=== PATIENT | male | born 1955 | race Caucasian/White ===

== ENCOUNTER 2022-11-03 14:51 | Outpatient (AMB) | payer MEDICARE, OTHER, SELFPAY ==
--- NOTE | 2022-11-03 14:53 | MHC.OFFVIS ---
Intake Intake Visit Reasons: Peg J tube for Duopa intestinal infusion Intake Note: This patient presents for an assessment to discuss PEG-J tube for Duopa intestinal infusion. Patient's spouse c/o; no complaints at this time. 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 He had been diagnosed to have Parkinson's disease 6 years ago and was following with a neurologist in [place]. His says that he has had worsening of the waxing and waning of his symptoms. His symptoms generally are rigidity, poor balance and gait, and cognitive issues. These symptoms have been erratic and may be extreme on oral dopamine so he was referred for infusion for better steady state levels. His was with him during the visit and provided most of the information. [facility] Medical History (Updated 11/03/22 @ 15:23 by Vishal Wilde MD) Parkinsons disease Review of Systems Const Denies chills and Denies fever(s) Card Denies chest pain, Denies dyspnea and Denies dyspnea on exertion Resp Denies cough, Denies dyspnea and Denies dyspnea on exertion GI Denies hematochezia and Denies change in bowel habits Denies hematuria and Denies difficulty urinating Musc Denies back pain and Denies limited range of motion Neuro Details: Rigidity, poor gait, Slowness of movement, cognitive difficulties Denies focal weakness and Denies convulsions Psych Denies depression and Denies mood swings Physical Exam Const General: comfortable and no acute distress Orientation/consciousness: patient oriented x3 Neck Neck: Yes no lymphadenopathy Resp Auscultation: clear to auscultation bilaterally Cardio Rhythm: regular rhythm GI Palpation (GI): Soft to palpation, nontender and no guarding Neuro General: patient oriented x3 Assessment & Plan Assessment & Plan (1) Parkinsons disease: Code(s): G20 - Parkinson's disease Plan: I had a long discussion with patient and his about the technique of PEG J-tube placement for Duopa infusion. I explained the risks including but not limited to bleeding, infections, bowel injury, tube dislodgement, loss of airway during the procedure with anesthesia, as well as the benefits and alternatives. The wanted to proceed. The patient seems to also be in agreement. We will coordinate this procedure with [facility]. Coding Level of Care Code New Pt Level 3 (77895) Diagnoses Parkinsons disease G20
== END 2022-11-03 15:28 | disposition home or self-care (01) ==
PROVIDERS: Visit Provider Surgery
DX: G20 Parkinson's disease (principal)
CPT/HCPCS: 99203

== ENCOUNTER → 2022-11-03 14:51 | Outpatient (BNVA) | payer MEDICARE, OTHER, SELFPAY | PROVIDERS: Visit Provider Surgery ==

== ENCOUNTER 2022-12-28 14:26 | Outpatient (AMB) | payer MEDICARE, OTHER, SELFPAY ==
--- NOTE | 2022-12-28 14:27 | MHC.OFFVIS ---
Intake Vital Signs 12/28/22 14:31 Height 5 ft 11 in Weight 162 lb 2 oz BMI 22.6 BP 140/72 H Blood Pressure Location Rt brachial Position Sitting Respiration 16 Pulse 79 Pulse Source Pulse Oximeter Pulse Oximetry (%) 97 Oxygen Delivery Method Room Air Intake Visit Reasons: ENP-Parkinsons disease w/dyskinesia - Conf Intake Note: Pt presents to the office for new pt evaluation for Parkinson's. He is here with his Linda. She states he has been seeing Dr. Toro at [facility] for Parkinson's. She states overnight he is unable to move, and she feels he has stopped responding to Carbidopa-levodopa. SHe is hoping to get him on Duopa. 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: No Allergies No Known Allergies Allergy (Verified 12/28/22 15:40) Medication List - Last Reconciled 12/28/22 by Annie Isaacs MD aspirin 81 mg PO DAILY carbidopa-levodopa 25-100 mg 1 tab at 9.30 AM 12 noon 5pm 1.5 tabs at 7am 2.30 pm and 1 as needed at bedtime orally 3 times a day; carbidopa-levodopa 50-200 mg ER tabs PO clonazepam mg PO duloxetine mg PO fludrocortisone mg PO linaclotide (Linzess) mcg PO melatonin 6 mg PO BEDTIME PRN metoprolol succinate ER mg PO opicapone (Ongentys) 25 mg PO QPM opicapone (Ongentys) 25 mg PO BEDTIME rivastigmine topical trazodone 50 mg PO DAILY vibegron (Gemtesa) 75 mg PO DAILY HPI HPI Comments History of Present Illness Details 67y/o male comes for further management of parkinsons disease. He was diagnosed with Parkinsons disease 6 years ago. He was scheduled for sleep study and diagnosed with sleep apnea but also told that he probably had Parkinsons disease.He went to [facility] and was diagnosed with parkinsons disease and has been sinemet since then. Currently he has significant fluctuations and dyskinesias and is here for further management with Duopa. DUring his medication adjustments, he has had hallucinations before , he has orthostatic intolerance and is on florinef now. He is also on ogentys. Memory- mild memory difficulties Sleep- used to have sleep talking, was diagnosed with sleep apnea not on CPAP. Mood- anxiety- severe Speech- softer severe drooling Handwriting- poor Utensils- slow SHowers- needs help sometimes Dressing- needs help Gait- slow , 3 recent falls, he declines to use any assisting devices Bowel movements- on linzess as needed Hallucinations- during med adjustments. No vertigo . he exercises 2 times a week does dopa fit. He has multiple OFF periods . Increased urinary frequency - incontinence\ He has help 1 night a week , on other days his helps . He is on clonazepam 0.5mg 1/2 tab bid - he had a pardoxical reaction to increase in dose [facility] Medical History (Updated 12/28/22 @ 15:18 by Annie Isaacs MD) Parkinson's disease with fluctuating manifestations Anxiety Obstructive sleep apnea Parkinsons disease Surgical History H/O: knee surgery Family History Father No problems noted. Social History Household Members: Spouse Housing: House Alcohol intake: never Patient Tobacco Use Status: Never used Tobacco Use of substances other than those prescribed or required for medical reasons: No Physical Exam Vital Signs: Last Vital Signs Pulse 79 12/28/22 14:31 Resp 16 12/28/22 14:31 BP 140/72 H 12/28/22 14:31 Pulse Ox 97 12/28/22 14:31 Oxygen Delivery Method Room Air 12/28/22 14:31 BMI result Body Mass Index 22.6 Const General: anxious Nutritional Appearance: average body habitus Orientation/consciousness: oriented to person and oriented to place Neuro Other: He is very anxious, restless today, gets up frequently from chair wanting to pace.no tremors Moderate bradykinesia No tremors Severe hypophonia severely decreased blink and facial expression No cog wheel rigidity FFM and foot taps decreased marlo Neck- antecollis , restricted range of motion General: oriented to person, oriented to place and moves all extremities Cranial nerves: Yes Nystagmus not present and Yes Normal facial strength present Cognition (Neuro): normal cognition Gait exam (Neuro): Other gait observations present (stooped , slow) Motor exam (neuro): 5/5 motor strength present throughout Deep tendon reflexes (DTR's): Right triceps reflex intensity grade: 2+, Left triceps reflex intensity grade: 2+, Rt Biceps (C5, C6): 2+, Left biceps reflex intensity grade: 2+, Right brachioradialis reflex intensity grade: 2+, Left brachioradialis reflex intensity grade: 2+, Right patellar reflex intensity grade: 2+ and Left patellar reflex intensity grade: 2+ Coordination: [id number] test normal Assessment & Plan Assessment & Plan (1) Parkinson's disease with fluctuating manifestations: Code(s): G20.A2 - Parkinson's disease without dyskinesia, with fluctuations Plan Patient has frequent fluctuations and will benefit from Duopa Will schedule for procedure with Dr. Wilde.He already had an initial appointment with Dr. Wilde He will also benefit form a geripsych eval I will start him on lexapro 10mg qd for anxiety Orders: Referrals Geriatric Psychiatry Referral F41.9 - Anxiety disorder, unspecified, G20.A2 - Parkinson's disease without dyskinesia, with fluctuations Medications: New carbidopa-levodopa 25-100 mg 1 tab at 9.30 AM 12 noon 5pm 1.5 tabs at 7am 2.30 pm and 1 as needed at bedtime orally 3 times a day; 210 tabs 0RF escitalopram oxalate 10 mg PO DAILY 30 tabs 6RF Changed From clonazepam PO To clonazepam 1/2 tab bid Coding Level of Care Code New Pt Level 4 (76656) Diagnoses Parkinson's disease with fluctuating manifestations G20.A2
[2022-12-28 14:31] VITALS: BP 140/72; PULSE 79; RESP 16; O2SAT 97; BMI 22.6
== END 2022-12-28 15:32 | disposition home or self-care (01) ==
PROVIDERS: PCP Internal Medicine; Visit Provider Psychiatry & Neurology Neurology
DX: G20.A2 Parkinson's disease without dyskinesia, with fluctuations (principal)
CPT/HCPCS: 99204

== ENCOUNTER → 2022-12-28 14:26 | Outpatient (BNVA) | payer MEDICARE, OTHER, SELFPAY | PROVIDERS: PCP Internal Medicine; Visit Provider Psychiatry & Neurology Neurology | DX: G20.A2 Parkinson's disease without dyskinesia, with fluctuations (principal) | CPT/HCPCS: 99202 ==

== ENCOUNTER 2023-02-01 07:19 | Day surgery (SDC) | payer MEDICARE, OTHER, SELFPAY ==
[2023-01-24 10:52] VITALS: BMI 21.9
--- NOTE | 2023-01-31 09:46 | P.CONAN_ITS ---
Documented by User: Judy Elias NP 01/31/23 09:55 HPI - Anesthesia Eval Consult details Narrative: 67yo M for Peg-J Tube Placement Parkinsons Afib - no anticoag Follows [facility] cardiology. Last office visit 05/2022 [facility] Active Problems Active Problems: All Active Problems (Updated 01/24/23 @ 11:06 by Kimi Mei RN) Parkinsons disease (Acute) Parkinson's disease with fluctuating manifestations (Acute) Anxiety (Acute) Obstructive sleep apnea (Acute) Past Medical History Medical History CAD (coronary artery disease) [place] (hard of hearing) Osteoarthritis Afib Parkinson's disease with fluctuating manifestations Anxiety Obstructive sleep apnea Family History Family History Father No problems noted. Surgical History Surgical History H/O colonoscopy History of total right knee replacement H/O: knee surgery Social History Social History Household Members: Spouse Housing: House Are you a primary career services officer to a significant other at home: No Do you presently have visiting nurse or other home services: Yes ([employer]) Alcohol intake: never Comment: gait can be unsteady w/Parkinsons flare-ups Patient Tobacco Use Status: Never used Tobacco Use of substances other than those prescribed or required for medical reasons: No Have you been hit, kicked, punched, or otherwise hurt by someone within the past year? If so, by whom?: No Are you DNR?: Yes Advance Directives: Yes ( is HCP & patient has DNR order) Advance Directives Information Provided: No Advance Directives on File: No Recently lost weight without trying: No Eating poorly because of decreased appetite: No Nutrition Risks: No Nutritional Risk Poor oral hygiene: No Meds Allergies Allergy/AdvReac Type Severity Reaction Status Date / Time No Known Allergies Allergy Verified 02/01/23 08:05 Home Medications Medication Instructions Recorded Confirmed Last Taken Type aspirin 81 mg tablet 81 mg PO DAILY 11/03/22 01/24/23 Unknown History carbidopa ER 50 mg-levodopa 200 mg 1 tab PO BEDTIME 11/03/22 01/24/23 Unknown History tablet,extended release duloxetine 60 mg capsule,delayed 60 mg PO BEDTIME 11/03/22 01/24/23 Unknown History release fludrocortisone 0.1 mg tablet 0.1 mg PO BID 11/03/22 01/24/23 Unknown History linaclotide 72 mcg capsule 72 mcg PO QPM 11/03/22 01/24/23 Unknown History (Linzess) melatonin 5 mg tablet 5 mg PO BEDTIME PRN Insomnia 11/03/22 01/24/23 Unknown History metoprolol succinate 25 mg 25 mg PO QAM 11/03/22 01/24/23 Unknown History tablet,extended release 24 hr rivastigmine 4.6 mg/24 hour 4.6 mg topical DAILY 11/03/22 01/24/23 Unknown History transdermal patch clonazepam 0.5 mg tablet 0.25 mg PO BID 12/28/22 01/24/23 Unknown History opicapone 25 mg capsule (Ongentys) 25 mg PO BEDTIME 12/28/22 01/24/23 Unknown History trazodone 50 mg tablet 50 mg PO BEDTIME 12/28/22 01/24/23 Unknown History vibegron 75 mg tablet (Gemtesa) 75 mg PO BEDTIME 12/28/22 01/24/23 Unknown History gabapentin 100 mg capsule 300 mg PO BEDTIME 01/24/23 01/24/23 Unknown History Exam Height,Weight and Vital Signs: Height 5 ft 11 in Weight 71.214 kg Pertinent Lab Results Pertinent Lab Results: CBC and BMP 10/2022 WNL Narrative Narrative: EKG 05/[address] abn ECHO 07/2022 LA mild to mod dilated Trace to mild MR RV is nml in size and function LV size is nml LV wall thickness is nml LV systolic function is nml LVEF 60-65% There is a sigmoid shape to the septum No RWMA Grade 1 DD with impaired LV relax, which may be nml for the patient's age. Assessment and Plan Assessment Anesthesia Assessment: Chart Reviewed Documented by User: Duncan Nation MD 02/01/23 08:07 [facility] Past Medical History Medical History CAD (coronary artery disease) [place] (hard of hearing) Osteoarthritis Afib Parkinson's disease with fluctuating manifestations Anxiety Obstructive sleep apnea Narrative: severe Parkinsons, severe dysphagia. Family History Family History Father No problems noted. Family history of problems with anesthesia: No Surgical History Surgical History H/O colonoscopy History of total right knee replacement H/O: knee surgery History of Problems with Anesthesia: No Social History Social History Household Members: Spouse Housing: House Are you a primary career services officer to a significant other at home: No Do you presently have visiting nurse or other home services: Yes ([employer]) Alcohol intake: never Comment: gait can be unsteady w/Parkinsons flare-ups Patient Tobacco Use Status: Never used Tobacco Use of substances other than those prescribed or required for medical reasons: No Have you been hit, kicked, punched, or otherwise hurt by someone within the past year? If so, by whom?: No Are you DNR?: Yes Advance Directives: Yes ( is HCP & patient has DNR order) Advance Directives Information Provided: No Advance Directives on File: No Recently lost weight without trying: No Eating poorly because of decreased appetite: No Nutrition Risks: No Nutritional Risk Poor oral hygiene: No Meds Allergies Allergy/AdvReac Type Severity Reaction Status Date / Time No Known Allergies Allergy Verified 02/01/23 08:05 Home Medications Medication Instructions Recorded Confirmed Last Taken Type aspirin 81 mg tablet 81 mg PO DAILY 11/03/22 01/24/23 Unknown History carbidopa ER 50 mg-levodopa 200 mg 1 tab PO BEDTIME 11/03/22 01/24/23 Unknown History tablet,extended release duloxetine 60 mg capsule,delayed 60 mg PO BEDTIME 11/03/22 01/24/23 Unknown History release fludrocortisone 0.1 mg tablet 0.1 mg PO BID 11/03/22 01/24/23 Unknown History linaclotide 72 mcg capsule 72 mcg PO QPM 11/03/22 01/24/23 Unknown History (Linzess) melatonin 5 mg tablet 5 mg PO BEDTIME PRN Insomnia 11/03/22 01/24/23 Unknown History metoprolol succinate 25 mg 25 mg PO QAM 11/03/22 01/24/23 Unknown History tablet,extended release 24 hr rivastigmine 4.6 mg/24 hour 4.6 mg topical DAILY 11/03/22 01/24/23 Unknown History transdermal patch clonazepam 0.5 mg tablet 0.25 mg PO BID 12/28/22 01/24/23 Unknown History opicapone 25 mg capsule (Ongentys) 25 mg PO BEDTIME 12/28/22 01/24/23 Unknown History trazodone 50 mg tablet 50 mg PO BEDTIME 12/28/22 01/24/23 Unknown History vibegron 75 mg tablet (Gemtesa) 75 mg PO BEDTIME 12/28/22 01/24/23 Unknown History gabapentin 100 mg capsule 300 mg PO BEDTIME 01/24/23 01/24/23 Unknown History Exam Airway Mallampati Class: II Neck ROM: Full Loose/Missing/Broken Teeth: No Heart: ok Lungs: ok Assessment and Plan Assessment Anesthesia Assessment: Anesthesia Plan Discussed Final Anesthetic Review Family History of Problems with Anesthesia: No History of Problems with Anesthesia: No NPO: Yes ASA Class: III Final Preanesthetic Review: No Changes in Pt Med Stat, Meds/Allgs Chart Reviewed, Consent Obtained/Reviewed and Anes Risks/Benef Reviewed Patient Risk: High Procedure Risk: Intermediate Anesthetic Plan Anesthetic Plan: MAC: and Agree w/ Assess. and Plan Disposition: Standard PACU
[2023-02-01] VITALS (7 sets, daily range): BP systolic 120–168; BP diastolic 74–99; PULSE 51–70; RESP 14–16; TEMP 36.1–36.8; O2SAT 94–99; BMI 22.8
--- NOTE | ~2023-02-01 | FL_ITS ---
EXAMINATION: XR FLUOROSCOPY WITH IMAGES CLINICAL INFORMATION: PEG tube-J-tube placement. COMPARISON: None available. TECHNIQUE: Fluoroscopy Supervised By: Dr. Vishal Wilde. Fluoroscopy Time: 9.2 seconds. Cumulative Dose: 2.14 mGy. DAP: Not available on machine. Images: 4. FINDINGS: Fluoroscopy provided PEG J-tube placement. Images demonstrate endoscope projecting over the stomach and wires and catheters projecting over the duodenum/proximal jejunum FL/FL guidance in OR IMPRESSION: Fluoroscopy guidance for PEG J-tube placement
--- NOTE | 2023-02-01 08:04 | P.HPSUR_ITS ---
Pre-Procedural Eval Section A Date of Service: 02/01/23 Section B Chief Complaint: Parkinsonism, unspecified Details of Present Illness: Has had worsening of Parkinson symptoms with rigidity, some cognitive impairment, poor balance, episodes of severe anxiety Relevant Family History (Specify if Yes): No Relevant Social History: None Present Medications: see Short Stay Collaborative assessment Medical History: Significant History (Parkinson's disease, sleep apnea, anxiety) History of Previous Operations: No relevant previous surgery Allergies: Allergies Allergy/AdvReac Type Severity Reaction Status Date / Time No Known Allergies Allergy Verified 12/28/22 15:40 Review of Systems Sugical H&P ROS: Negative: Constitution, Cardiovascular, Respiratory, Neurological, Psychiatric, Hem-Onc, Allergic/Immunologic, Gastrointestinal, Gen itourinary, Musculoskeletal, Integumentary, Endocrine and Eyes/Ears/Nose/Throat Exam Surgical H&P Exam: Normal: HEENT, Normal: Heart, Normal: Lungs, Normal: Extremities, Normal: Abdomen, Normal: Skin and Normal: Neurological Exam Comment: Appears oriented, able to give consent Plan Diagnosis/Plan: Unchanged I have reviewed the history and physical and performed a pertinent physical examination on my patient. No changes have occurred unless specified. Daughter Linda at bedside as well Time Spent With Patient Time: Total time managing care of this patient today ____ minutes.
[2023-02-01] MEDS: Lactated Ringers 1,000 ML 100 ML IVCONT (08:14)
--- NOTE | 2023-02-01 09:49 | W.PM.OPN ---
Operative Note Operative Note Date of Service: 02/01/23 Narrative: Preop diagnosis: Parkinson's disease Postop diagnosis: The same Procedure:PEG J-tube placement, with fluoroscopy Surgeon: Vishal Wilde MD [employer] assistant manager: GONSALO Fraire The patient is a 67-year-old male with a long history of Parkinson's disease, with worsening symptoms, here for placement of a PEG J-tube placement for Duopa infusion. He understood the technique of the planned procedure and was aware of the risks, benefits, and alternatives He was brought to the operating room. He was placed supine under monitored anesthesia care. A bite block was in position. A surgical time-out was done. The patient received cefazolin 2 g IV preoperatively. I proceeded to insert the pediatric colonoscope through the bite block into the oropharynx. The vocal cords were visualized. The esophageal slit was seen posterior to this. The esophageal slit was intubated with the scope was advanced gently through the entire length of the esophagus into the stomach. The stomach was insufflated. Transillumination was easily seen in the epigastric area. Indentation of the anterior stomach wall was clearly seen with pressure on this same area on the skin with a finger. This area of the skin was therefore prepped and draped. Lidocaine 1% was used for local anesthesia. A small stab incision was made using a blade 11. Large bore needle with the plastic sheath was inserted. This was seen into the lumen of the stomach. The needle was removed. The guidewire was inserted to this plastic sheath and this was grasped with a snare. I then pulled out the guidewire all the way past the oral orifice. We looped the gastrostomy part of the kit this guidewire and the guidewire was pulled out along with the gastrostomy until this was noted on the stomach wall. I reinserted the scope. The inner bolster was in good position. The jejunostomy part of the kit was then inserted through the gastrostomy. The tip was grasped with a forceps. I advanced the scope along with the tip of the jejunostomy into the pyloric orifice, through the C-loop of the duodenum all the way to the jejunum. We used fluoroscopy to confirm location of the tip of the jejunostomy tube as being the jejunum past the midline. Once this was confirmed fluoroscopically, I proceeded to withdraw the scope gently, making sure that the jejunostomy was staying in place. Once we had the scope in the stomach lumen, I confirmed the location of the tip of the jejunostomy as being in the right place in the jejunum. The wire was withdrawn as well. The scope was withdrawn completely. The attachments to the jejunostomy tube for infusions were then placed Good location of the jejunostomy tube in the jejunum past the midline was confirmed with fluoroscopy at the end . The procedure was completed. The patient tolerated the procedure well. There were no immediate complications. Initial and final counts of sponges and instruments were correct. Estimated blood loss was less than 5 cc The patient was then transferred to the recovery room with stable vital signs.
== END 2023-02-01 11:32 | disposition home or self-care (01) ==
PROVIDERS: PCP Nurse Practitioner Family; Visit Provider Surgery
PROC: (CPT 43246; principal; 2023-02-01 07:30)
DX: G20.A1 Parkinson's disease without dyskinesia, without mention of fluctuations (principal); R26.9 Unspecified abnormalities of gait and mobility; R41.9 Unspecified symptoms and signs involving cognitive functions and awareness; Z66 Do not resuscitate; F41.1 Generalized anxiety disorder; I48.91 Unspecified atrial fibrillation; I25.10 Atherosclerotic heart disease of native coronary artery without angina pectoris; G47.33 Obstructive sleep apnea (adult) (pediatric); Z79.82 Long term (current) use of aspirin; Z79.899 Other long term (current) drug therapy
CPT/HCPCS: 43246; J0690; J2704; J3010

== ENCOUNTER → 2023-02-01 07:19 | Outpatient (BNV) | payer MEDICARE, OTHER, SELFPAY | PROVIDERS: PCP Nurse Practitioner Family; Visit Provider Surgery | DX: G20.A1 Parkinson's disease without dyskinesia, without mention of fluctuations (principal) | CPT/HCPCS: 43246 ==

== ENCOUNTER → 2023-02-09 14:47 | Outpatient (BNVA) | payer MEDICARE, OTHER, SELFPAY | PROVIDERS: PCP Nurse Practitioner Family; Visit Provider Surgery | DX: G20.A1 Parkinson's disease without dyskinesia, without mention of fluctuations (principal) | CPT/HCPCS: 99212 ==

== ENCOUNTER 2023-02-16 13:10 | Outpatient (AMB) | payer MEDICARE, OTHER, SELFPAY ==
--- NOTE | 2023-02-16 13:16 | MHC.OFFVIS ---
Intake Intake Visit Reasons: S/P PEG-J placement Intake Note: This patient presents for a post-op follow-up assessment status post PEG-J tube placement. Patient's spouse c/o; reports no changes or complaints at this time. Customs And Border Protection Officer Required: No Accompanied by: Spouse Allergies No Known Allergies Allergy (Verified 02/16/23 13:24) HPI S/P PEG-J placement HPI Details There does not seem to have be any changes with regards to his Parkinson's symptoms at this point. He has not started on Duopa infusion yet. There is no significant drainage from the PEG J site according to the . PFSH Medical History CAD (coronary artery disease) [place] (hard of hearing) Osteoarthritis Afib Parkinson's disease with fluctuating manifestations Anxiety Obstructive sleep apnea Surgical History H/O colonoscopy History of total right knee replacement H/O: knee surgery Family History Father No problems noted. Social History Household Members: Spouse Housing: House Are you a primary specialist wound care to a significant other at home: No Do you presently have visiting nurse or other home services: Yes ([employer]) Alcohol intake: never Comment: gait can be unsteady w/Parkinsons flare-ups Patient Tobacco Use Status: Never used Tobacco Review of Systems Const Denies chills and Denies fever(s) Card Denies chest pain GI Denies abdominal pain Physical Exam Const Other: Shuffling gait, rigidity noted but he is able to ambulate short distances with assistance Resp Effort & Inspection: normal respiratory effort GI Other: Peg J in place Palpation (GI): Soft to palpation, not firm and nontender Assessment & Plan Assessment & Plan (1) Parkinsons disease: Code(s): G20 - Parkinson's disease Plan: Status post PEG J placement. The site is clean and does not appear infected. He is to start Duopa infusion tomorrow. I explained to the that they need to be careful that the J tube does not get pulled out when the pump is in place They can follow up on a p.r.n. basis. Coding Level of Care Code Global (72913) Diagnoses Parkinsons disease G20
== END 2023-02-16 13:31 | disposition home or self-care (01) ==
PROVIDERS: PCP Internal Medicine; Visit Provider Surgery
DX: G20.A2 Parkinson's disease without dyskinesia, with fluctuations (principal); Z48.89 Encounter for other specified surgical aftercare
CPT/HCPCS: 99212

== ENCOUNTER → 2023-02-16 13:10 | Outpatient (BNVA) | payer MEDICARE, OTHER, SELFPAY | PROVIDERS: PCP Internal Medicine; Visit Provider Surgery | DX: G20.A1 Parkinson's disease without dyskinesia, without mention of fluctuations (principal) | CPT/HCPCS: 99212 ==

== ENCOUNTER → 2023-03-15 16:01 | Outpatient (BNVA) | payer MEDICARE, OTHER, SELFPAY | PROVIDERS: PCP Nurse Practitioner Family; Visit Provider Nurse Practitioner Family ==

== ENCOUNTER 2023-04-19 08:01 | Outpatient (AMB) | payer MEDICARE, OTHER, SELFPAY ==
--- NOTE | 2023-04-19 08:02 | MHC.OFFVIS ---
Intake Intake Visit Reasons: follow up-Confirmed Intake Note: Pt presents for telehealth visit for admission follow up at [facility]. Call [phone] Engineer Soils Required: No Allergies No Known Allergies Allergy (Verified 04/19/23 08:03) Medication List - Last Reconciled 04/19/23 by Annie Isaacs MD aspirin 81 mg PO DAILY carbidopa-levodopa 25-100 mg 1.5 tabs at 7am, 9:30am, 12pm, 2:30pm, 5pm orally; 30 days carbidopa-levodopa 50-200 mg ER 1 tab PO BEDTIME escitalopram oxalate 10 mg PO DAILY fludrocortisone 0.1 mg PO BID gabapentin 300 mg PO BEDTIME linaclotide (Linzess) 72 mcg PO QPM melatonin 5 mg PO BEDTIME PRN metoprolol succinate ER 25 mg PO QAM opicapone (Ongentys) 25 mg PO BEDTIME quetiapine 1 tab qam and 1/2 tab qhs rivastigmine 4.6 mg topical DAILY vibegron (Gemtesa) 75 mg PO BEDTIME HPI HPI Comments History of Present Illness Details 67-yr-old male presents for f/u televisit. Pt is accompanied by his . Patient is currently a patient at [facility] on the [place] Unit.Migdalia Shaver - nurse advocate for the patient was present on todays visit( [phone], [email or web address]). Linda( [email or web address]) his is the health care proxy and wants us to discuss with Migdalia Shaver about duopa. Since his last visit he had another UTI and flu - low blood pressure. He was at [facility] Apr 01 to 2023.He lost significant weight, getting PT now. He is worse cognitively.Hallucinations have decreased and he is calmer. His J tube broke when he was in the hospital. He has a follow up with to determine the status of his tube. It is flushing ok. Patient continues to have unpredictable off-times. He has been having orthostatic hypotension, which is preventing him from doing his PT/OT sessions. states the pt is taking: CD-LD 25-100m.5 tab at 7am 9:30am, 12pm, 2.30 pm 5pm, CD-LD 50-200mg ER- 1 tab at 7:30pm Ongentys 25mg qhs Fludrocortisone 0.1mg q 7am. Quetiapine 25mg-1 tab 8 am and 1/2 tab at 8 pm Rivastigmine patch 4.6mg. PFSH Medical History CAD (coronary artery disease) [place] (hard of hearing) Osteoarthritis Afib Parkinson's disease with fluctuating manifestations Anxiety Obstructive sleep apnea Surgical History H/O colonoscopy History of total right knee replacement H/O: knee surgery Family History Father No problems noted. 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) Alcohol intake: never Comment: gait can be unsteady w/Parkinsons flare-ups Patient Tobacco Use Status: Never used Tobacco Assessment & Plan Assessment & Plan (1) Parkinson's disease with fluctuating manifestations: Comment: dx 2017-becomes anxious when has flare-up & gets SOB-unsteady gait at times Code(s): G20.A2 - Parkinson's disease without dyskinesia, with fluctuations (2) Anxiety: Code(s): F41.9 - Anxiety disorder, unspecified (3) Hallucinations: Code(s): R44.3 - Hallucinations, unspecified (4) Orthostatic hypotension: Code(s): I95.1 - Orthostatic hypotension [facility].. CD-LD 25-100mg, 1.5 tabs at 7am, 9:30am, 12pm, 2:30pm, 5pm. Continue: CD-LD 50-200mg ER, 1 tab at 7:30pm Continue: Ongentys 25mg qhs Fludrocortisone 0.1mg q 7am. Quetiapine 25mg at 8 am and 12.5 mg 8 pm Rivastigmine patch 4.6mg Medications: Discontinued tramadol Discontinued Reason: Patient no longer taking 50 mg PO Q6H PRN 10 tabs 0RF pain Telehealth Telehealth Location of provider rendering services: practice address Location of patient: address on file Patient Identification confirmed using: Name, : Yes Telehealth method: voice only Patient verbally consented to treatment: Yes Patient verbally consented to billing insurance company: Yes Patient informed of any privacy concerns related to visit: Yes Minutes spent on Phone/Video with Pt.: 27 Coding Level of Care Code Tele Est Pt Level 5 (49206) Diagnoses Parkinson's disease with fluctuating manifestations G20.A2 Anxiety F41.9 Hallucinations R44.3 Orthostatic hypotension I95.1 Time Spent (min) 35 Comment 27 min on phone discussing the medications history , duopa etc 10 minutes documenting
== END 2023-04-19 13:25 | disposition home or self-care (01) ==
LOC: HO.HSMS 08:01
PROVIDERS: PCP Nurse Practitioner Family; Visit Provider Psychiatry & Neurology Neurology
DX: G20.A2 Parkinson's disease without dyskinesia, with fluctuations (principal); F41.9 Anxiety disorder, unspecified; R44.3 Hallucinations, unspecified; I95.1 Orthostatic hypotension
CPT/HCPCS: 99443

== ENCOUNTER → 2023-04-19 08:01 | Outpatient (BNVA) | payer MEDICARE, OTHER, SELFPAY | PROVIDERS: PCP Nurse Practitioner Family; Visit Provider Psychiatry & Neurology Neurology ==

== ENCOUNTER 2023-05-02 15:24 | Outpatient (AMB) | payer MEDICARE, OTHER, SELFPAY ==
--- NOTE | 2023-05-02 15:29 | A.OFFVIS_ITS ---
Intake Vital Signs 05/02/23 15:42 Height 5 ft 11 in Weight 137 lb 5 oz BMI 19.1 BP 81/53 L Blood Pressure Location Lt brachial Position Sitting Pulse 65 Intake Visit Reasons: discuss peg-j replacement Intake Note: Patient is seen in office to discuss peg J placement. Pt c/o: peg J came off some time around 03/2023 and is here to discuss replacing it. Safety And Security Manager Required: No Accompanied by: Family/Other Allergies No Known Allergies Allergy (Verified 05/02/23 15:38) Medication List - Last Reconciled 05/02/23 by Vishal Wilde MD aspirin 81 mg PO DAILY carbidopa-levodopa 25-100 mg 1.5 tabs at 7am, 9:30am, 12pm, 2:30pm, 5pm orally; 30 days carbidopa-levodopa 50-200 mg ER 1 tab PO BEDTIME escitalopram oxalate 10 mg PO DAILY fludrocortisone 0.1 mg PO BID gabapentin 300 mg PO BEDTIME linaclotide (Linzess) 72 mcg PO QPM melatonin 5 mg PO BEDTIME PRN metoprolol succinate ER 25 mg PO QAM midodrine 2.5 mg PO DAILY opicapone (Ongentys) 25 mg PO BEDTIME polyethylene glycol 3350 (Miralax) 17 grams PO DAILY quetiapine 1 tab qam and 1/2 tab qhs rivastigmine 4.6 mg topical DAILY thiamine HCl (vitamin B1) 100 mg PO DAILY vibegron (Gemtesa) 75 mg PO BEDTIME HPI discuss peg-j replacement HPI Details 67-year-old male here for follow-up for his PEG J. He has known Parkinson's disease. In view of his worsening symptoms, I had done a PEG J placement in January, for Duopa infusion for better control of his symptoms. However, last February,, he became sick with a UTI and had urosepsis. He therefore spent an extended period of time in [facility] [place]. He had recurrent UTIs and had to stay in a rehab institution thereafter While he was in [facility] for his acute illness then, his PEG J -tube came off last month so he has not been able to start dopa infusion. His says that he has had cognitive decline because of dementia. However, she is hopeful that at least some of his Parkinson's symptoms will improve with do a infusion. He is currently at her [facility]. His describes Parkinson's symptoms as poor balance, unable to ambulate, rigidity, and cognitive deficiencies. [facility] Medical History CAD (coronary artery disease) [place] (hard of hearing) Osteoarthritis Afib Parkinson's disease with fluctuating manifestations Anxiety Obstructive sleep apnea Surgical History H/O colonoscopy History of total right knee replacement H/O: knee surgery Family History Father No problems noted. 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) Alcohol intake: never Comment: gait can be unsteady w/Parkinsons flare-ups Patient Tobacco Use Status: Never used Tobacco Review of Systems Const Denies chills, Denies fever(s), Reports frequent falls and Reports weakness Card Denies chest pain Resp Denies cough Denies difficulty urinating Neuro Reports Neuro-related abnormal movements, Reports frequent falls, Reports lack of coordination, Reports memory loss and Reports weakness Psych Reports memory loss Physical Exam Vital Signs: Last Vital Signs Pulse 65 05/02/23 15:42 BP 81/53 L 05/02/23 15:42 BMI result Body Mass Index 19.1 Const Other: On wheelchair, answers simple questions, flat affect General: comfortable and no acute distress Resp Effort & Inspection: normal respiratory effort Cardio Rate: regular rate GI Other: G part of the PEG J-tube still in place Palpation (GI): Soft to palpation, not firm and nontender Assessment & Plan Assessment & Plan (1) Parkinson's disease with fluctuating manifestations: Comment: dx 2017-becomes anxious when has flare-up & gets SOB-unsteady gait at times Code(s): G20.A2 - Parkinson's disease without dyskinesia, with fluctuations Plan: He had a PEG J-tube placed as January,. However, he had been unable to start Duopa infusion because had to admitted to [facility] twice since February, for urosepsis. He is therefore currently in a rehab institution. His PEG J came off accidentally while he was in [facility]. His wants to have the PEG J-tube reinserted. She understands the technique of this procedure as well as the risks, benefits, and alternatives. I told her that I will reach out to Dr. Isaacs of Neurology prior to scheduling for this procedure. Coding Level of Care Code Est Pt Level 3 (49044) Diagnoses Parkinson's disease with fluctuating manifestations G20.A2
[2023-05-02 15:42] VITALS: BP 81/53; PULSE 65; BMI 19.1
== END 2023-05-02 15:53 | disposition home or self-care (01) ==
PROVIDERS: PCP Nurse Practitioner Family; Visit Provider Surgery
DX: G20.A2 Parkinson's disease without dyskinesia, with fluctuations (principal)
CPT/HCPCS: 99213

== ENCOUNTER → 2023-05-02 15:24 | Outpatient (BNVA) | payer MEDICARE, OTHER, SELFPAY | PROVIDERS: PCP Nurse Practitioner Family; Visit Provider Surgery | DX: G20.A2 Parkinson's disease without dyskinesia, with fluctuations (principal) | CPT/HCPCS: 99212 ==

== ENCOUNTER 2023-06-03 11:00 | Day surgery (SDC) | payer MEDICARE, OTHER, SELFPAY ==
[2023-06-03 12:11] VITALS: BMI 19.1
[2023-06-03 12:13] VITALS: BP 101/65; PULSE 63; RESP 16; TEMP 37.1; O2SAT 97
--- NOTE | 2023-06-03 12:17 | HO.ANESPROP2 ---
HPI - Anesthesia Eval Consult details Narrative: 67yo male patient for Endoscopic gastroduodenoscopy, removal of gastrojejunostomy PMFSH Active Problems Active Problems: All Active Problems Orthostatic hypotension (Acute) Hallucinations (Acute) Parkinsons disease (Acute) Parkinson's disease with fluctuating manifestations (Acute) Anxiety (Acute) Obstructive sleep apnea (Acute) Past Medical History Medical History Acquired absence of kidney Syncope and collapse Unsteadiness on feet Difficulty in walking Dysphagia Disorder of autonomic nervous system HTN (hypertension) Sleep apnea Thyroid disease Malignant neoplasm of kidney Depression Dizziness Dementia CAD (coronary artery disease) [place] (hard of hearing) Osteoarthritis Afib Parkinson's disease with fluctuating manifestations Anxiety Obstructive sleep apnea Family History Family History Father No problems noted. 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) Alcohol intake: never Comment: gait can be unsteady w/Parkinsons flare-ups Patient Tobacco Use Status: Former Tobacco user Quit Date: 1984 Tobacco use type: Cigarette Advance Directives Date on File: 05/31/23 Meds Allergies Allergy/AdvReac Type Severity Reaction Status Date / Time No Known Allergies Allergy Verified 05/31/23 17:21 Home Medications ?Medication ?Instructions ?Recorded ?Confirmed ?Last Taken ?Type aspirin 81 mg tablet 81 mg PO DAILY 11/03/22 06/01/23 Unknown History carbidopa ER 50 mg-levodopa 200 mg 1 tab PO BEDTIME 11/03/22 06/01/23 Unknown History tablet,extended release fludrocortisone 0.1 mg tablet 0.1 mg PO BID 11/03/22 06/01/23 Unknown History melatonin 5 mg tablet 3 mg PO BEDTIME PRN Insomnia 11/03/22 06/01/23 Unknown History metoprolol succinate 25 mg 25 mg PO QAM 11/03/22 06/01/23 02/01/23 06:30 History tablet,extended release 24 hr rivastigmine 4.6 mg/24 hour 4.6 mg topical DAILY 11/03/22 06/01/23 Unknown History transdermal patch opicapone 25 mg capsule (Ongentys) 25 mg PO BEDTIME 12/28/22 06/01/23 Unknown History vibegron 75 mg tablet (Gemtesa) 75 mg PO BEDTIME 12/28/22 06/01/23 Unknown History gabapentin 100 mg capsule 300 mg PO BEDTIME 01/24/23 06/01/23 Unknown History quetiapine 25 mg tablet See Rx Instructions PO BEDTIME 04/19/23 06/01/23 Unknown History midodrine 2.5 mg tablet 10 mg PO TID 05/02/23 06/01/23 Unknown History polyethylene glycol 3350 17 17 g PO 3XW 05/02/23 06/01/23 Unknown History gram/dose oral powder (Miralax) thiamine HCl (vitamin B1) 100 mg 100 mg PO DAILY 05/02/23 06/01/23 Unknown History tablet acetaminophen 325 mg tablet 650 mg PO Q6H PRN Fever 06/01/23 06/01/23 Unknown History omega 6-dus-wrx-fish oil 60 mg-90 1 cap PO DAILY 06/01/23 06/01/23 Unknown History mg-500 mg capsule (Fish Oil) sennosides 8.6 mg-docusate sodium 2 tab-cap PO BEDTIME 06/01/23 06/01/23 Unknown History 50 mg tablet (Senna Plus) Exam Height,Weight and Vital Signs: Height 5 ft 11 in Weight 62.142 kg Last Vital Signs Temp 98.7 F 06/03/23 12:13 Pulse 63 06/03/23 12:13 Resp 16 06/03/23 12:13 BP 101/65 06/03/23 12:13 Pulse Ox 97 06/03/23 12:13 O2 Del Method Room Air 06/03/23 12:13 Airway Mallampati Class: III TM Dist: >3cm Neck ROM: Full Heart: RRR Lungs: ?Transmitted sounds Assessment and Plan Assessment Anesthesia Assessment: Anesthesia Plan Discussed and Chart Reviewed Final Anesthetic Review Family History of Problems with Anesthesia: No History of Problems with Anesthesia: No NPO: Yes ASA Class: III Final Preanesthetic Review: No Changes in Pt Med Stat, Meds/Allgs Chart Reviewed, Consent Obtained/Reviewed and Anes Risks/Benef Reviewed Patient Risk: Intermediate Procedure Risk: Low Assessment/Block/Sedation in SS: Assess/Block/Sedation-SS Anesthetic Plan Anesthetic Plan: MAC: Disposition: Standard PACU
--- NOTE | 2023-06-03 13:25 | MHC.SHP ---
Pre-Procedural Eval Section A - 24 Hr Update-Section A only Date of Service: 06/03/23 Section B - Complete if H&P > 30 days Chief Complaint: Parkinson's disease without dyskinesia, with fluct Details of Present Illness: has worsening dementia; Duopa unlikely to be of any benefit so and pt wants PEG J removed Relevant Family History (Specify if Yes): No Relevant Social History: None Present Medications: see Short Stay Collaborative assessment Medical History: Significant History (Parkinson's, Dementia) Allergies: Allergies Allergy/AdvReac Type Severity Reaction Status Date / Time No Known Allergies Allergy Verified 05/31/23 17:21 Review of Systems Sugical H&P ROS: Negative: Constitution, Cardiovascular, Respiratory, Psychiatric, Hem-Onc, Allergic/Immunologic, Gastrointestinal, Genitourinary, Musculoskeletal, Integumentary, Endocrine and Eyes/Ears/Nose/Throat and Yes, Specify: Neurological (tremors, rigidity, dementia symptoms) Exam Surgical H&P Exam: Normal: HEENT, Normal: Heart, Normal: Lungs, Normal: Extremities, Normal: Abdomen and Normal: Skin and Significant Findings: Neurological (rigidity, dementia) Plan Diagnosis/Plan: Unchanged I have reviewed the history and physical and performed a pertinent physical examination on my patient. No changes have occurred unless specified. Time Spent With Patient Time: Total time managing care of this patient today ____ minutes.
--- NOTE | 2023-06-03 13:49 | W.PM.OPN ---
Operative Note Operative Note Date of Service: 06/03/23 Narrative: Preop diagnosis: PEG J-tube in place, Parkinson's disease and dementia Postop diagnosis: The same Procedure: Esophagogastroscopy, removal of PEG J-tube Surgeon: Vishal Wilde MD The patient is a 67-year-old male previously had a PEG J-tube placed for Parkinson's disease. The jejunostomy part of the apparatus was actually had fallen off already. According to his neurologist, he has worsening dementia and will not benefit anymore from Duopa infusion through the PEG J-tube. The and the patient therefore wanted the entire apparatus removed. The gave consent. She understood the technique of the planned procedure as well as the risks, benefits, and alternatives The patient was brought to the operating room placed in reclining position with monitored anesthesia care. A bite block was in position. A surgical time-out was done An inserted the endoscope through the bite block into the oropharynx. The vocal cords were visualized. The esophageal slit was seen posterior to this. The esophageal slit was intubated. The scope was gently advanced into the entire length of the esophagus into the stomach. The stomach was insufflated. The inner bolster of the PEG tube was seen. I divided the tubing itself from above the skin. I grasped the inner bolster with a grasper. Then was able to pull it into the stomach lumen. I pulled the entire inner bolster along with the transected tubing with the endoscope out through the oral cavity The rest of the inner bolster was intact I applied dressings on the old PEG J site. The procedure was completed The patient tolerated procedure well. There were no immediate complications. He was transferred to the recovery room with stable vital signs.
[2023-06-03 13:51] VITALS: BP 80/50; PULSE 72; RESP 16; TEMP 36.2; O2SAT 99
[2023-06-03 14:06] VITALS: BP 104/63; PULSE 68; RESP 18; TEMP 36.7; O2SAT 96
--- NOTE | 2023-09-14 14:06 | MHC.SL.IMP ---
Date of Plan of Treatment: 06/15/23 Onset of Symptoms/Illness: 05/16/23 Date Treatment Started: 06/15/23 Admitting Diagnosis: Parkinson's Primary Speech & Language Diagnosis: R13.12 Oropharyngeal Phase Dysphagia Reason for Today's Visit: 62024 Modified Barium Swallow Study Comments: Pre-evaluation Dietary Consistencies: Regular Pre-evaluation Liquid Consistency: Thin Oral Motor Exam Facial Symmetry: Symmetrical Facial Movement: Oral-Facial Facial Miscellaneous Observations: Oral Expression Ability: No Impairment Is patient able to manage secretions?: Yes Is patient able to produce volitional cough?: Yes Food and Liquid Trials: Oral Impairment: Lip Closure: 0=No labial escape Oral Impairment: Tongue Control During Bolus Hold: 0=Cohesive bolus between tongue to palatal seal Oral Impairment: Bolus Preparation/Mastication: 1=Slow prolonged chewing/mashing with complete re-collection Oral Impairment: Bolus Transport/Lingual Motion: 0=Brisk tongue motion Oral Impairment: Oral Residue: 2=Residue collection on oral structures Oral Impairment:Initiation of Pharyngeal Swallow: 1=Bolus head in valleculae Pharyngeal Impairment: Soft Palate Elevation: 1=Trace column of contrast or air between SP and PW Pharyngeal Impairment: Laryngeal Elevation: 1=Partial thyroid cartilage/arytenoids to epiglottic petiole movement Pharyngeal Impairment: Anterior Hyoid Excursion: 1=Partial anterior movement Pharyngeal Impairment: Epiglottic Movement: 0=Complete inversion Pharyngeal Impairment: Laryngeal Vestibular Closure:: 1=Incomplete: narrow column air/contrast in laryngeal vestibule Pharyngeal Impairment: Pharyngeal Stripping Wave: 0=Present: complete Pharyngeal Impairment: Pharyngeal Contraction: Did not test Pharyngeal Impairment: Pharyngoesophageal Segment Openin=Partial distention/partial duration: partial obstruction of flow Pharyngeal Impairment: Tongue Base (TB) Retraction: 2=Narrow column of contrast/air between TB and posterior PW Pharyngeal Impairment: Pharyngeal Residue: 2=Collection of residue within or on pharyngeal structures Pharyngeal Impairment: Esophageal Clearance Upright Position: Did not test Impressions and Recommendations SUMMARY: Pt was provided Thin and [place]-Thick Liquid Barium as well as Puree, Ground and Regular Solids coated in barium contrast. Pt tolerated spoon sip and small sips of Thin Barium with no aspiration but significant penetration for the cup sip trials of Thin Liquids. He was observed to aspirate contrast below the vocal folds with uncontrolled cup sip and small cup sip with pharyngeal residue present following solid trials. Spontaneous cough was not elicited with either aspiration event. He tolerated [place] Thick Liquids with spoon sips and controlled and uncontrolled cup sips. Penetration was observed with both controlled and uncontrolled cup sips. Solid textures all showed mild oral and pharyngeal residue with no penetration or aspiration present. Recommend Regular Solids and [place]-Thick Liquids. Pt may benefit from follow-up Speech Therapy to train eating habit and provided exercises to improve his swallow. After completion, he may qualify to return to Thin Liquids. Until then, given his lack of cough response, he should be under strict aspiration precautions. Liquid Intake Recommendation: [place] Thick Liquid Intake Strategies: Dietary Recommendations: Regular Medication Administration: Whole with Puree Please contact the pharmacy regarding appropriate crushable or liquid drug formulations that are available whenever modified delivery is recommended. Compensatory Strategies Recommended: Sitting Upright (90 deg) Turn Head Left Small Bites and Sips Oral Check Supervision during eating and or drinking: Intermittent Supervision Recommended Treatments: Compens. Strategy Educat. Recommendation for Speech Therapy: Discharged with Instructions for Home Use Text Comment: Recommend Regular Solids and [place] Thick Liquids, especially with meals. Pt may be a good candidate for Speech Therapy to work on strategies to return to Thin Liquids. Frequency/Duration: Date Range for Service Requested: Timeline to reassess: PRN [employer] Skilled Maintenance Supervisor Clinician/Clinical Fellow: No Supervisory Statement: N/A Speech Language Pathologist: Ricky Phelps M.A., CCC-FILM PAINTER
== END 2023-06-03 14:35 | disposition home or self-care (01) ==
PROVIDERS: PCP Nurse Practitioner Family; Visit Provider Surgery
PROC: (CPT 49441; principal; 2023-06-03 12:30)
DX: G20.A2 Parkinson's disease without dyskinesia, with fluctuations (principal); Z43.1 Encounter for attention to gastrostomy; F03.90 Unspecified dementia, unspecified severity, without behavioral disturbance, psychotic disturbance, mood disturbance, and anxiety; I25.10 Atherosclerotic heart disease of native coronary artery without angina pectoris; I48.91 Unspecified atrial fibrillation; F41.9 Anxiety disorder, unspecified; G47.33 Obstructive sleep apnea (adult) (pediatric); Z66 Do not resuscitate; Z79.82 Long term (current) use of aspirin; Z79.899 Other long term (current) drug therapy
CPT/HCPCS: 43247; J2704

== ENCOUNTER → 2023-06-03 11:00 | Outpatient (BNV) | payer MEDICARE, OTHER, SELFPAY | PROVIDERS: PCP Nurse Practitioner Family; Visit Provider Surgery | DX: G20.A2 Parkinson's disease without dyskinesia, with fluctuations (principal); K94.23 Gastrostomy malfunction | CPT/HCPCS: 43247 ==

== ENCOUNTER 2023-06-06 09:42 | Outpatient (AMB) | payer MEDICARE, OTHER, SELFPAY ==
[2023-06-06 09:50] VITALS: BP 110/70; PULSE 71; O2SAT 98; BMI 19.1
--- NOTE | 2023-06-06 09:50 | MHC.OFFVIS ---
Vital Signs 06/06/23 09:50 Height 5 ft 11 in Weight 137 lb BMI 19.1 BP 110/70 Blood Pressure Location Rt brachial Position Sitting Pulse 71 Pulse Source Pulse Oximeter Pulse Oximetry (%) 98 Oxygen Delivery Method Room Air Intake Visit Reasons: follow up-conf Intake Note: Patient presents for a 1 month fu- Parkinson's Military Education Coordinator Required: No Accompanied by: Spouse Allergies No Known Allergies Allergy (Verified 06/06/23 09:54) Medication List - Last Reconciled 06/06/23 by Annie Isaacs MD acetaminophen 650 mg PO Q6H PRN aspirin 81 mg PO DAILY carbidopa-levodopa 25-100 mg 1.5 tabs at 7am, 9:30am, 12pm, 2:30pm, 5pm orally; 30 days carbidopa-levodopa 50-200 mg ER 1 tab PO BEDTIME escitalopram oxalate 10 mg PO DAILY fludrocortisone 0.1 mg PO BID gabapentin 300 mg PO BEDTIME melatonin 3 mg PO BEDTIME PRN metoprolol succinate ER 25 mg PO QAM midodrine 10 mg PO TID omega 0-uuy-vaw-fish oil 60-90-500 mg (Fish Oil) 1 cap PO DAILY opicapone (Ongentys) 25 mg PO BEDTIME polyethylene glycol 3350 (Miralax) 17 grams PO 3XW quetiapine 25 mg PO BID rivastigmine 4.6 mg topical DAILY sennosides-docusate sodium 8.6-50 mg (Senna Plus) 2 tab-caps PO BEDTIME thiamine HCl (vitamin B1) 100 mg PO DAILY vibegron (Gemtesa) 75 mg PO BEDTIME HPI Comments Details: 67-yr-old male presents for f/U . he is currently at [facility] and is planning to move to a Memory Care unit at [facility]. He needs help with transfer toileting showers dressing He can eat. He does not get PT or OT He has constant dizziness. No falls He is unable to tolerate midodrine on higher doses. He has been having orthostatic hypotension states the pt is taking: CD-LD 25-100m.5 tab at 7am 9:30am, 12pm, 2.30 pm 5pm, CD-LD 50-200mg ER- 1 tab at 7:30pm Ongentys 25mg qhs Fludrocortisone 0.1mg q 7am. Quetiapine 25mg-1 tab 8 am and 1/2 tab at 8 pm Rivastigmine patch 4.6mg. midodrine 10mg tid PFSH Medical History (Updated 06/06/23 @ 10:24 by Annie Isaacs MD) Parkinson's disease with dyskinesia Acquired absence of kidney Syncope and collapse Unsteadiness on feet Difficulty in walking Dysphagia Disorder of autonomic nervous system HTN (hypertension) Sleep apnea Thyroid disease Malignant neoplasm of kidney Depression Dizziness Dementia CAD (coronary artery disease) [place] (hard of hearing) Osteoarthritis Afib Parkinson's disease with fluctuating manifestations Anxiety Obstructive sleep apnea Surgical History H/O colonoscopy History of total right knee replacement H/O: knee surgery Family History Father No problems noted. 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) Alcohol intake: never Comment: gait can be unsteady w/Parkinsons flare-ups Patient Tobacco Use Status: Former Tobacco user Quit Date: 1984 Tobacco use type: Cigarette Advance Directives Date on File: 05/31/23 Physical Exam Vital Signs: Last Vital Signs Pulse 71 06/06/23 09:50 BP 110/70 06/06/23 09:50 Pulse Ox 98 06/06/23 09:50 Oxygen Delivery Method Room Air 06/06/23 09:50 BMI result Body Mass Index 19.1 Const General: anxious Nutritional Appearance: average body habitus Orientation/consciousness: oriented to person and oriented to place Neuro Other: .no tremors Moderate bradykinesia No tremors Severe hypophonia severely decreased blink and facial expression No cog wheel rigidity FFM and foot taps decreased marlo L>R Neck- antecollis , restricted range of motion General: oriented to person, oriented to place and moves all extremities Cranial nerves: Yes Nystagmus not present and Yes Normal facial strength present Cognition (Neuro): abnormal cognition Motor exam (neuro): 5/5 motor strength present throughout Deep tendon reflexes (DTR's): Right triceps reflex intensity grade: 2+, Left triceps reflex intensity grade: 2+, Rt Biceps (C5, C6): 2+, Left biceps reflex intensity grade: 2+, Right brachioradialis reflex intensity grade: 2+, Left brachioradialis reflex intensity grade: 2+, Right patellar reflex intensity grade: 2+ and Left patellar reflex intensity grade: 2+ Coordination: [id number] test normal Orientation What is the (year) (season) (date) (day) (month)?: date, day and month Where are we (state) (county) (town or city) (hospital) (floor)?: state, county, town or city, hospital/clinic and floor Registration Name of 3 unrelated objects clearly and slowly, then ask patient to repeat all 3 of them. (1st repeat determines score. Make sure they can repeat all three): object 1, object 2 and object 3 Attention & Calculation (CHOOSE ONE) Spell WORLD backwards (DLROW): 2 letters Language Show patient a wristwatch & ask what it is. Repeat for pencil.: watch and pencil Ask the patient to repeat the phrase 'No ifs, ands, or buts' after you.: correct Ask the patient to 'take a piece of paper with their right hand' 'fold paper in half' 'place paper on floor': take paper in right hand and fold paper in half Print the sentence 'CLOSE YOUR EYES' on a piece. If patient actually closes eyes then score.: followed written direction Score Score: 19 Assessment & Plan Assessment & Plan (1) Parkinson's disease with dyskinesia: Code(s): G20.B1 - Parkinson's disease with dyskinesia, without mention of fluctuations Category: Medical (2) Anxiety: Code(s): F41.9 - Anxiety disorder, unspecified Category: Medical (3) Hallucinations: Code(s): R44.3 - Hallucinations, unspecified Category: Medical (4) Orthostatic hypotension: Code(s): I95.1 - Orthostatic hypotension Category: Medical Plan CD-LD 25-100mg, 1.5 tabs at 7am, 9:30am, 12pm, 2:30pm, 5pm. Decrease Carbidopa/levodopa ER 25/100 , 1 tab at 7:30pm Continue: Ongentys 25mg qhs Fludrocortisone 0.1mg 2 times a day Quetiapine 25mg at 8 am and 12.5 mg 8 pm increase Rivastigmine patch 9.5 mgqd Monitor blood pressure restart PT- can do chair exercises and OT, speech therapy
== END 2023-06-06 10:31 | disposition home or self-care (01) ==
PROVIDERS: PCP Nurse Practitioner Family; Visit Provider Psychiatry & Neurology Neurology
DX: G20.B1 Parkinson's disease with dyskinesia, without mention of fluctuations (principal); F41.9 Anxiety disorder, unspecified; R44.3 Hallucinations, unspecified; I95.1 Orthostatic hypotension
CPT/HCPCS: 99214

== ENCOUNTER → 2023-06-06 09:50 | Outpatient (BNVA) | payer MEDICARE, OTHER, SELFPAY | PROVIDERS: PCP Nurse Practitioner Family; Visit Provider Psychiatry & Neurology Neurology | DX: G20.B1 Parkinson's disease with dyskinesia, without mention of fluctuations (principal); F41.9 Anxiety disorder, unspecified; R44.3 Hallucinations, unspecified; I95.1 Orthostatic hypotension | CPT/HCPCS: 99212 ==

== ENCOUNTER 2023-10-11 10:49 | Outpatient (AMB) | payer MEDICARE, OTHER, SELFPAY ==
--- NOTE | 2023-10-11 10:53 | MHC.OFFVIS ---
Vital Signs 10/11/23 10:56 Height 5 ft 11 in Weight 133 lb BMI 18.5 BP 110/56 L Blood Pressure Location Lt brachial Position Sitting Respiration 16 Pulse 61 Pulse Source Pulse Oximeter Pulse Oximetry (%) 97 Oxygen Delivery Method Room Air Intake Visit Reasons: follow up - Confirmed Intake Note: Pt presents to the office for a 4 month follow up for Parkinson's. Psychiatric Aide Instructor Required: No Allergies No Known Allergies Allergy (Verified 10/11/23 10:54) Medication List - Last Reconciled 10/11/23 by Annie Isaacs MD acetaminophen 650 mg PO Q6H PRN aspirin 81 mg PO DAILY carbidopa-levodopa 25-100 mg 1.5 tabs at 7am, 9:30am, 12pm, 2:30pm, 5pm orally; 1 tab at bedtime 30 days escitalopram oxalate 10 mg (1/2 x 20 mg) PO DAILY fludrocortisone 0.1 mg PO BID gabapentin 300 mg PO BEDTIME melatonin 3 mg PO BEDTIME PRN midodrine 10 mg PO TID mirabegron ER (Myrbetriq) 25 mg PO DAILY polyethylene glycol 3350 (Miralax) 17 grams PO 3XW quetiapine 25 mg PO BID rivastigmine 4.6 mg topical DAILY sennosides-docusate sodium 8.6-50 mg (Senna Plus) 2 tab-caps PO BEDTIME thiamine HCl (vitamin B1) 100 mg PO DAILY trazodone 25 mg PO BEDTIME PRN vibegron (Gemtesa) 75 mg PO DAILY HPI Comments Details: 67-yr-old male presents for f/U . [facility] [place]. He needs help with transfer toileting showers dressing He can eat. He had few falls - from the bed and wheel chair. He is more closely monitored now. He has unpredictable OFF periods and he has frequent freezing episodes Hi still has delusions , misperception He has been having orthostatic hypotension states the pt is taking: CD-LD 25-100m.5 tab at 7am 9:30am, 12pm, 2.30 pm 5pm, CD-LD 25-100mg ER- 1 tab at 7:30pm Fludrocortisone 0.1mg bid Quetiapine 25mg-1 tab bid Rivastigmine patch 4.6mg. midodrine 10mg tid PFSH Medical History Parkinson's disease with dyskinesia Acquired absence of kidney Syncope and collapse Unsteadiness on feet Difficulty in walking Dysphagia Disorder of autonomic nervous system HTN (hypertension) Sleep apnea Thyroid disease Malignant neoplasm of kidney Depression Dizziness Dementia CAD (coronary artery disease) [place] (hard of hearing) Osteoarthritis Afib Parkinson's disease with fluctuating manifestations Anxiety Obstructive sleep apnea Surgical History H/O colonoscopy History of total right knee replacement H/O: knee surgery Family History Father No problems noted. Social History Household Members: Spouse Housing: House Are you a primary adult day care worker to a significant other at home: No Do you presently have visiting nurse or other home services: Yes (BEAD WIRE INSULATOR) Alcohol intake: never Comment: gait can be unsteady w/Parkinsons flare-ups Patient Tobacco Use Status: Former Tobacco user Tobacco use type: Cigarette Advance Directives Date on File: 05/31/23 Physical Exam Vital Signs: Last Vital Signs Pulse 61 10/11/23 10:56 Resp 16 10/11/23 10:56 BP 110/56 L 10/11/23 10:56 Pulse Ox 97 10/11/23 10:56 Oxygen Delivery Method Room Air 10/11/23 10:56 BMI result Body Mass Index 18.5 Const General: anxious Nutritional Appearance: average body habitus Orientation/consciousness: oriented to person and oriented to place Neuro Other: .no tremors Moderate bradykinesia No tremors mild hypophonia Mild decreased blink and facial expression left UE - cog wheel rigidity No cog wheel rigidity FFM and foot taps decreased marlo L>R Neck- antecollis , restricted range of motion General: oriented to person, oriented to place and moves all extremities Cranial nerves: Yes Nystagmus not present and Yes Normal facial strength present Cognition (Neuro): abnormal cognition Motor exam (neuro): 5/5 motor strength present throughout Coordination: [id number] test normal Assessment & Plan Assessment & Plan (1) Parkinson's disease with dyskinesia: Code(s): G20.B1 - Parkinson's disease with dyskinesia, without mention of fluctuations Category: Medical (2) Anxiety: Code(s): F41.9 - Anxiety disorder, unspecified Category: Medical (3) Hallucinations: Code(s): R44.3 - Hallucinations, unspecified Category: Medical (4) Orthostatic hypotension: Code(s): I95.1 - Orthostatic hypotension Category: Medical Plan CD-LD 25-100mg, 1.5 tabs at 7am, 9:30am, 12pm, 2:30pm, 5pm. Carbidopa/levodopa ER 25/100 , 1 tab at 7:30pm Fludrocortisone 0.1mg 2 times a day Quetiapine 25mg at 8 am 8 pm Rivastigmine patch 9.5 mgqd Lorazepam 0.5mg bid as needed for shortness of breath anxiety Monitor blood pressure restart PT- can do chair exercises and OT, speech therapy Medications: New carbidopa-levodopa 25-100 mg ER 1 tab PO BEDTIME 30 tabs 0RF lorazepam 0.5 mg PO BID PRN 60 tabs 5RF anxiety Changed From escitalopram oxalate 10 mg PO DAILY 30 tabs 6RF To escitalopram oxalate 10 mg (1/2 x 20 mg) PO DAILY 30 tabs 6RF From carbidopa-levodopa 25-100 mg 1.5 tabs at 7am, 9:30am, 12pm, 2:30pm, 5pm orally; 1 tab at bedtime 30 days 225 tabs 0RF To carbidopa-levodopa 25-100 mg 1.5 tabs at 7am, 9:30am, 12pm, 2:30pm, 5pm orally; 30 days 225 tabs 0RF From carbidopa-levodopa 25-100 mg 1.5 tabs at 7am, 9:30am, 12pm, 2:30pm, 5pm orally; 30 days 225 tabs 0RF To carbidopa-levodopa 25-100 mg 1.5 tabs at 7am, 9:30am, 12pm, 2:30pm, 5pm orally; 1 tab at bedtime 30 days 225 tabs 0RF Coding Level of Care Code Est Pt Level 5 (08877) Diagnoses Parkinson's disease with dyskinesia G20.B1 Anxiety F41.9 Hallucinations R44.3 Orthostatic hypotension I95.1
[2023-10-11 10:56] VITALS: BP 110/56; PULSE 61; RESP 16; O2SAT 97; BMI 18.5
== END 2023-10-11 11:46 | disposition home or self-care (01) ==
PROVIDERS: PCP Nurse Practitioner Family; Visit Provider Psychiatry & Neurology Neurology
DX: G20.B2 Parkinson's disease with dyskinesia, with fluctuations (principal); F41.9 Anxiety disorder, unspecified; R44.3 Hallucinations, unspecified; I95.1 Orthostatic hypotension; R29.6 Repeated falls
CPT/HCPCS: 99214

== ENCOUNTER → 2023-10-11 10:49 | Outpatient (BNVA) | payer MEDICARE, OTHER, SELFPAY | PROVIDERS: PCP Nurse Practitioner Family; Visit Provider Psychiatry & Neurology Neurology | DX: G20.B1 Parkinson's disease with dyskinesia, without mention of fluctuations (principal); F41.9 Anxiety disorder, unspecified; R44.3 Hallucinations, unspecified; I95.1 Orthostatic hypotension | CPT/HCPCS: 99212 ==

== ENCOUNTER 2024-02-28 11:27 | Outpatient (AMB) | payer MEDICARE, OTHER, SELFPAY ==
--- NOTE | 2024-02-28 11:34 | MHC.OFFVIS ---
Vital Signs 02/28/24 11:35 Height 5 ft 11 in BP 102/64 Blood Pressure Location Rt brachial Position Sitting Pulse 81 Pulse Source Pulse Oximeter Pulse Oximetry (%) 95 Oxygen Delivery Method Room Air Intake Visit Reasons: Urgent follow up( OK per ) Intake Note: Patient presents for follow up Allergies No Known Allergies Allergy (Verified 02/28/24 11:36) HPI Comments Details: 68-yr-old male presents for f/U . he is currently at [facility] by the [place].He is accompanied by his who is concerned about his left hand infection - due to his posturing - . His wants to know how to prevent in the other side ( right side) He was seen at [facility] and had surgery in left hand - hand surgery tendon release surgery. He needs help with transfer toileting showers dressing. His is still involved in his care He can eat. He had few falls - from the bed and wheel chair. He is more closely monitored now. He has unpredictable OFF periods and he has frequent freezing episodes Hi still has delusions , misperception He has been having orthostatic hypotension states the pt is taking: CD-LD 25-100m.5 tab at 8am 10am, 12pm, 2.30 pm 4.30pm CD-LD 25-100mg ER- 1 tab at 7:30pm Fludrocortisone 0.1mg bid Quetiapine 25mg-1 tab bid Rivastigmine patch 4.6mg. 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) Alcohol intake: never Comment: gait can be unsteady w/Parkinsons flare-ups Patient Tobacco Use Status: Former Tobacco user Tobacco use type: Cigarette Advance Directives Date on File: 05/31/23 Physical Exam Vital Signs: Last Vital Signs Pulse 81 02/28/24 11:35 Pulse Ox 95 02/28/24 11:35 Oxygen Delivery Method Room Air 02/28/24 11:35 Const General: anxious Nutritional Appearance: average body habitus Orientation/consciousness: oriented to person and oriented to place Neuro Other: Moderate bradykinesia No tremors mild hypophonia Mild decreased blink and facial expression left UE - cog wheel rigidity FFM and foot taps decreased marlo L>R Neck- antecollis , restricted range of motion Left hand bandaged . General: oriented to person, oriented to place and moves all extremities Cranial nerves: Yes Nystagmus not present Motor exam (neuro): 5/5 motor strength present throughout Assessment & Plan Assessment & Plan (1) Parkinson's disease with dyskinesia: Code(s): G20.B1 - Parkinson's disease with dyskinesia, without mention of fluctuations Category: Medical Qualifiers: Fluctuating manifestations: with fluctuating manifestations Qualified Code(s): G20.B2 - Parkinson's disease with dyskinesia, with fluctuations (2) Anxiety: Code(s): F41.9 - Anxiety disorder, unspecified Category: Medical (3) Hallucinations: Code(s): R44.3 - Hallucinations, unspecified Category: Medical (4) Orthostatic hypotension: Code(s): I95.1 - Orthostatic hypotension Category: Medical Plan Change CD-LD 25-100mg, 1 tabs at 8am, 10am, 12pm, 2:30pm, 5pm. Increase Carbidopa/levodopa ER 25/100 , 1 tab 8am 10am 12 noon 2.30 pm 5 pm Fludrocortisone 0.1mg 2 times a day Quetiapine 25mg at 8 am 8 pm Rivastigmine patch 9.5 mgqd Lorazepam 0.5mg bid as needed for shortness of breath anxiety Monitor blood pressure OT for hand exercises. Please monitor for any skin infections contractures etc Coding Level of Care Code Est Pt Level 4 (83732) Complex EM visit Add On G2211 Diagnoses Parkinson's disease with dyskinesia and fluctuating manifestations G20.B2 Fluctuating manifestations: with fluctuating manifestations Anxiety F41.9 Hallucinations R44.3 Orthostatic hypotension I95.1
[2024-02-28 11:35] VITALS: BP 102/64; PULSE 81; O2SAT 95
== END 2024-02-28 12:09 | disposition home or self-care (01) ==
PROVIDERS: PCP Nurse Practitioner Family; Visit Provider Psychiatry & Neurology Neurology
DX: G20.B2 Parkinson's disease with dyskinesia, with fluctuations (principal); F41.9 Anxiety disorder, unspecified; R44.3 Hallucinations, unspecified; I95.1 Orthostatic hypotension
CPT/HCPCS: 99214; G2211

== ENCOUNTER → 2024-02-28 11:27 | Outpatient (BNVA) | payer MEDICARE, OTHER, SELFPAY | PROVIDERS: PCP Nurse Practitioner Family; Visit Provider Psychiatry & Neurology Neurology | DX: G20.B2 Parkinson's disease with dyskinesia, with fluctuations (principal); F41.9 Anxiety disorder, unspecified; R44.3 Hallucinations, unspecified; I95.1 Orthostatic hypotension | CPT/HCPCS: 99212 ==

== ENCOUNTER 2024-04-18 15:04 | Outpatient (AMB) | payer MEDICARE, OTHER, SELFPAY ==
[2024-04-18 15:10] VITALS: BP 114/70; PULSE 54; O2SAT 98; BMI 18.5
--- NOTE | 2024-04-18 15:10 | A.OFFVIS_ITS ---
Vital Signs 04/18/24 15:10 Height 5 ft 11 in Weight 133 lb BMI 18.5 BP 114/70 Blood Pressure Location Rt brachial Position Sitting Pulse 54 Pulse Source Pulse Oximeter Pulse Oximetry (%) 98 Oxygen Delivery Method Room Air Intake Visit Reasons: follow up Intake Note: Patients spouse requesting to speak with provider regarding concerns. Follow up was originally scheduled for 04/30 moved up to 04/18. Allergies No Known Allergies Allergy (Verified 04/18/24 15:12) Medication List - Last Reconciled 04/18/24 by Annie Isaacs MD acetaminophen 650 mg PO Q6H PRN aspirin 81 mg PO DAILY carbidopa-levodopa 25-100 mg 1 tab at 8am, 10am, 12pm, 2:30pm, 5pm orally; 30 days carbidopa-levodopa 25-100 mg ER orally 1 tab at 8am, 10am, 12pm, 2:30pm, 5 pm, 7 pm; (and continue CD-LD IR 25-100mg as ordered) 30 days escitalopram oxalate 10 mg (1/2 x 20 mg) PO DAILY fludrocortisone 0.1 mg PO BID gabapentin 300 mg PO BEDTIME lorazepam 0.5 mg PO BEDTIME lorazepam 0.5 mg PO BID PRN melatonin 3 mg PO BEDTIME PRN midodrine 10 mg PO TID mirabegron ER (Myrbetriq) 25 mg PO DAILY polyethylene glycol 3350 (Miralax) 17 grams PO 3XW quetiapine 25 mg PO BID rivastigmine 4.6 mg topical DAILY sennosides-docusate sodium 8.6-50 mg (Senna Plus) 2 tab-caps PO BEDTIME thiamine HCl (vitamin B1) 100 mg PO DAILY trazodone 25 mg PO BEDTIME PRN vibegron (Gemtesa) 75 mg PO DAILY HPI Comments Details: 68-yr-old male presents for f/U .He is on Hospice since yesterday .He still has OFF periods during the later part of the day. [facility]He is accompanied by his who is concerned about his left hand infection - due to his posturing - . His wants to know how to prevent in the other side ( right side) He was seen at [facility] and had surgery in left hand - hand surgery tendon release surgery. He needs help with transfer toileting showers dressing. His is still involved in his care He can eat. He had few falls - from the bed and wheel chair. He is more closely monitored now. He has unpredictable OFF periods and he has frequent freezing episodes Hi still has delusions , misperception He has been having orthostatic hypotension states the pt is taking: CD-LD 25-100m tab at 8am 10am, 12pm, 2 pm 5pm CD-LD 25-100mg ER- 1 tab at 8am 10am 12 noon 2pm 5pm and 7pm Fludrocortisone 0.1mg bid Quetiapine 25mg-1 tab bid Rivastigmine patch 4.6mg. midodrine 10mg tid PFSH Medical History Amputation of little finger Parkinson's disease with dyskinesia Acquired absence of kidney Syncope and collapse Unsteadiness on feet Difficulty in walking Dysphagia Disorder of autonomic nervous system HTN (hypertension) Sleep apnea Thyroid disease Malignant neoplasm of kidney Depression Dizziness Dementia CAD (coronary artery disease) [place] (hard of hearing) Osteoarthritis Afib Parkinson's disease with fluctuating manifestations Anxiety Obstructive sleep apnea Surgical History H/O surgical amputation of finger H/O colonoscopy History of total right knee replacement H/O: knee surgery Family History Father No problems noted. 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) Alcohol intake: never Comment: gait can be unsteady w/Parkinsons flare-ups Patient Tobacco Use Status: Former Tobacco user Tobacco use type: Cigarette Advance Directives Date on File: 05/31/23 Physical Exam Vital Signs: BMI result Body Mass Index 18.5 Const General: anxious Nutritional Appearance: average body habitus Orientation/consciousness: oriented to person and oriented to place Neuro Other: Moderate bradykinesia No tremors mild hypophonia Mild decreased blink and facial expression left UE - cog wheel rigidity FFM and foot taps decreased marlo L>R Neck- antecollis , restricted range of motion Left hand bandaged . General: oriented to person, oriented to place and moves all extremities Cranial nerves: Yes Nystagmus not present Motor exam (neuro): 5/5 motor strength present throughout Assessment & Plan Assessment & Plan (1) Parkinson's disease with dyskinesia: Code(s): G20.B1 - Parkinson's disease with dyskinesia, without mention of fluctuations Category: Medical Qualifiers: Fluctuating manifestations: with fluctuating manifestations Qualified Code(s): G20.B2 - Parkinson's disease with dyskinesia, with fluctuations (2) Anxiety: Code(s): F41.9 - Anxiety disorder, unspecified Category: Medical (3) Hallucinations: Code(s): R44.3 - Hallucinations, unspecified Category: Medical (4) Orthostatic hypotension: Code(s): I95.1 - Orthostatic hypotension Category: Medical Plan Patient is on Hospice CD-LD 25-100mg, 1 tabs at 8am, 10am, 12pm, 2:30pm, 5pm.7pm Carbidopa/levodopa ER 25/100 , 1 tab 8am 10am 12 noon 2.30 pm 5 pm Midodrine 10mg tid Fludrocortisone 0.1mg bid Quetiapine 25mg at 8 am 8 pm Rivastigmine patch 9.5 mgqd Increase Lorazepam 0.5mg bid as needed for shortness of breath anxiety and also for restlessness during OFF periods STart lorazepam 0.5mg qhs Monitor blood pressure Please monitor for any skin infections contractures etc Medications: New lorazepam 0.5 mg PO BEDTIME 30 tabs 3RF anxiety Coding Level of Care Code Est Pt Level 4 (43105) Complex EM visit Add On G2211 Diagnoses Parkinson's disease with dyskinesia and fluctuating manifestations G20.B2 Fluctuating manifestations: with fluctuating manifestations Anxiety F41.9 Hallucinations R44.3 Orthostatic hypotension I95.1
--- OUTSIDE RECORDS SUMMARY | 2024-04-18 18:14 | XMS_ITS | Encounter Summary ---
Author Organization [facility] Address [address] [place] [address] Care Team Providers Care Bridge Contractor Name Role Phone Seamus Koehler Primary Care Provider [phone] Encounter Details Date Type Department Care Team (Late st Contact Info) Description 05/18/2021 myChart Message [facility] [address] [place] [address] Joanne Toro MD [address] [place] [address] Swallow test referral Social History Tobacco Use Types Packs/Day Years Used Date Smoking Tobacco: Former Cigarettes Q uit: 1985 Smokeless Tobacco: Never Alcohol Use Standard Drinks/Week Comments Yes 0 (1 standard drink = 0.6 oz pur e alcohol) 2 x month Sex and Gender Information Value Date Recorded Sex Assigned at Male 02/02/2021 9:28 PM EST Legal Sex Male 12:35 PM EST Gender Identity Male 02/02/2021 9:28 PM EST Sexual Orientation Straight 02/02/2021 9: 28 PM EST documented as of this encounter Plan of Treatment Not on file documented as of this encounter Visit Diagnoses Not on filedocumented in this encounter Care Teams Bridge Contractor Relationship Specialty Start Date End Date Seamus Koehler [address] [place] [address] PCP - General Internal Medicine 12/24/16 documented as of this encounter
--- OUTSIDE RECORDS SUMMARY | 2024-04-18 18:14 | XMS_ITS | Encounter Summary ---
Author Organization [facility] Address [address] [place] [address] Care Team Providers Care Tractor Trailer Mechanic Name Role Phone Seamus Koehler Primary Care Provider [phone] Encounter Details Date Type Department Care Team (Late st Contact Info) Description 05/01/2021 myChart Message [facility] [address] [place], [place] [id number] Joanne Toro MD [address] [place], [place] [id number] Geneva cline conversation Social History Tobacco Use Types Packs/Day Years [...] PM EST documented as of this encounter Miscellaneous Notes * Telephone Encounter - AMERICA Huntley - 05/04/2021 3:33 PM EDT Faxed * Telephone Encounter - Joanne Toro MD - 05/01/2021 2:39 PM EDT Orders Placed This Encounter ??? Fluoroscopy Video Swallow with Speech ??? Ambulatory referral to Speech Therapy * Telephone Encounter - Joanne Toro MD - 05/01/2021 2:21 PM EDTMorena Maldonado [place] 05/01/2021 1:02 PM EDT ----- Message ----- From: Nasir Mcdonald Sent: 05/01/2021 12:30 PM EDT To: [facility] Neurology Clinical Staff Subject: Geneva escobar Hi Doctor Muna MA we recently spoke with Geneva coughlin. She thought it was very important that Tomget a swallowing test done, specifically a modified barrier test. She felt this was important and should be don e prior to speech therapy.. She suggested he sees Mala Fajardo at [facility] in [place] . Would you kindly write a referral for this?. Thank you very much. documented in this encounter Plan of Treatment Scheduled Orders Name Type Priority Associated Diagnoses Orde r Schedule Fluoroscopy Video Swallow with Speech Imaging Routine PD (Parkinson's disease) ([facility]) Expected: 05/01/2021, Expires: 07/01/2022 documented as of this encounter Visit Diagnoses Diagnosis PD (Parkinson's disease) ([facility])- Primary Paralysis agitans documented in this encounter Care Teams Tractor Trailer Mechanic Relationship Specialty Start Date End Date Seamus Koehler [address] [place] [id number] PCP - General Internal Medicine 12/24/16 documented as of this encounter
--- OUTSIDE RECORDS SUMMARY | 2024-04-18 18:14 | XMS_ITS | Encounter Summary ---
Author Organization [facility] Address [address] [place] [address] Care Team Providers Care Oil Tester Name Role Phone Seamus Koehler Primary Care Provider [phone] Encounter Details Date Type Department Care Team (Late st Contact Info) Description 09/09/2022 Orders Only [facility] [address] [place] [address] Caitie Alvarez NP [address] [place] [address] Social History Tobacco Use Types Packs/Day Years [...] on filedocumented in this encounter Care Teams Oil Tester Relationship Specialty Start Date End Date Seamus Koehler [address] [place] [address] PCP - General Internal Medicine 12/24/16 documented as of this encounter
--- OUTSIDE RECORDS SUMMARY | 2024-04-18 18:14 | XMS_ITS | Encounter Summary ---
Author Organization [facility] Address [address] [place] [address] Care Team Providers Care Railroad Car Repair Supervisor Name Role Phone Seamus Koehler Primary Care Provider [phone] Encounter Details Date Type Department Care Team (Late st Contact Info) Description 05/08/2021 Telephone [facility] [address] [place] [id number] Telephone Intake, Staff Social History Tobacco Use Types Packs/Day Years [...] encounter Miscellaneous Notes * Telephone Encounter - Vanesa Patel - 05/08/2021 9:12 AM EDT Images from the original note were not included. Called pt and lvm for the following: Caitie Alvarez NP P v Neurology Admin Staff Hi there! Can you please call [facility] and schedule a telehealth visit with me - I'm thinking either the 9AM or 11AM slot on May 26? ??If that Tuesday doesn't work you can pick another Tuesday. Dr. Muna wanted me to see him via telehealth in 3 weeks - and that's the date that's in 3 weeks. Thanks! Caitie documented in this encounter Plan of Treatment Not on file documented as of this encounter Visit Diagnoses Not on filedocumented in this encounter Care Teams Railroad Car Repair Supervisor Relationship Specialty Start Date End Date Seamus Koehler [address] [place] [address] PCP - General Internal Medicine 12/24/16 documented as of this encounter
--- OUTSIDE RECORDS SUMMARY | 2024-04-18 18:14 | XMS_ITS | Encounter Summary ---
Author Organization [facility] Address [address] [place] [address] Care Team Providers Care Firearms Assembly Supervisor Name Role Phone Meka Horan PSYCHOPAEDIC NURSE Primary Care Provider David rees Reason for Visit * Reason Comments Wound Care Encounter Details Date Type Department Care Team (Late st Contact Info) Description 04/16/2024 12:30 PM EST Office Visit [facility] [place] [facility] [place] [address] [facility] [address] [place] [address] Pepe Pandey, DPM [address] [place] [address] Pressure injury of right ankle, stage 2 (CMS/HCC) (Primary Dx) Social History Tobacco Use Types Packs/Day Years Used Date Smoking Tobacco: Former Smokeless Tobacco: Never Alcohol Use Standard Drinks/Week Comments Not Currently 0 (1 standard drink = 0.6 oz pur e alcohol) Sex and Gender Information Value Date Recorded Sex Assigned at Male 08/16/2023 9:16 AM EDT Legal Sex Male 8:29 PM EST Gender Identity Male 08/16/2023 9:16 AM EDT Sexual Orientation Straight 08/16/2023 9: 16 AM EDT documented as of this encounter Last Filed Vital Signs Vital Sign Reading Time Taken Comments Blood Pressure 143/121 04/16/2024 12:52 PM EST Caregiver states MD aware. Pulse 74 04/16/2024 12:52 PM EST Temperature 36.2 ??C (97.2 ??F) 04/16/2024 1 2:52 PM EST Respiratory Rate 16 04/16/2024 12:5 2 PM EST Oxygen Saturation 98% 04/16/2024 12: 52 PM EST Inhaled Oxygen Concentration - - Weight - - Height - - Body Mass Index - - documented in this encounter Progress Notes * Cristine Bangura RN - 04/16/2024 12:30 PM EST PHYSICIAN ORDERS and applied at clinic Go to ER if present with fever, shaking, chills, increased redness, or excess drainage. If you have any questions or concerns, please contact the wound center at Dept: [phone] Home Health: Home Health: [email or web address] Fax orders to Home Health Go to ER if present with fever, shaking,chills, increased redness, or excess drainage. If you have any questions or concerns please contact the wound center at Dept: [phone] Hand Hygiene: (W)basilio hands before and after wound care. Call Wound Center at Dept: [phone] you have signs and symptoms of infection such as fever, chills, unusual or increased drainage, increasing odor, or unusual redness. Anesthetic: Topical 5% Lidocaine Ointment to wound bed prior to debridement Home Health Other: - [facility] [phone] fax: [phone] PT/OT: Please evaluate for ROHO cushion, overlay air mattress, foam protective booties Dietary Increased protein. - Protein, vitamin C, zinc Edema Control - Orders / Instructions Elevate legs to the level of the heart or above for 30 minutes daily and/or when sitting Bathing/Showering/Hygiene May shower with protection but do not get wound dressing(s) wet. Protect dressing(s) with water repellant cover (for example, large plastic bag) or a cast cover and may then take shower. Wound Treatment: Frequency 3x per week Wound Location: Ankle; Right, Lateral Cleanser - Sodium Chloride irrigation solution 0.9%, 250 (ml) bottle Primary Dressing - gentamicin ointment 0.1 %, adaptic Secured With - foam dressing * Pepe Pandey, DPM - 04/16/2024 12:30 PM EST Images from the original note were not included. Office Visit Visit Date: 04/16/2024 Patient Name: Nasir Mcdonald Date of : 1955 PCP: Meka Horan NP HPI: HPI 68 year old male seen for follow-up of lateral right ankle wound. No new complaints. Past Medical History: Diagnosis Date Overweight 07/07/2023 DX:Overweight Patient Active Problem List Diagnosis Pressure injury of right ankle, stage 2 (CMS/HCC) Pressure injury of left hip, stage 2 (CMS/HCC) Current Outpatient Medications on File Prior to Visit Medication Sig Dispense Refill aspirin 81 mg EC tablet Take 1 tablet (81 mg total) by mouth 1 (one) time each day. carbidopa-levodopa CR (SINEMET CR) 50-200 mg per CR tablet Take 1 tablet at bedtime and one overnight as needed cyanocobalamin (VITAMIN B-12) 100 mcg tablet Take 1 tablet (100 mcg total) by mouth 1 (one) time each day. metoprolol succinate (TOPROL-XL) 25 mg 24 hr tablet Take 1 tablet (25 mg total) by mouth. sulfamethoxazole-trimethoprim (BACTRIM DS,SEPTRA DS) 800-160 mg per tablet No current facility-administered medications on file prior to visit. ROS Review of Systems Vital Signs: Visit Vitals BP (!) 143/121 (BP Location: Right arm, Patient Position: Sitting) Comment: Caregiver states MD aware. Pulse 74 Temp 36.2 ??C (97.2 ??F) (Tympanic) Resp 16 SpO2 98% Smoking Status Former PHYSICAL EXAM Physical Exam Wound has overlying eschar. Mild periwound redness. No pus or floctuance. WOUND ASSESSMENT If photograph of wound not visible on this note, please check under Media tab. Wound Pressure Injury 12/22/23 Ankle Distal;Right (Active) Wound Image 12/22/23 1131 Wound Bed Tissue Assessment [place];Sloughing 04/16/24 1200 Kallie-Wound Assessment [place];Red 04/16/24 1200 Shape Irregular 04/16/24 1200 Wound Length (cm) 1.1 cm 04/16/24 1200 Wound Width (cm) 0.6 cm 04/16/24 1200 Wound Surface Area (cm^2) 0.66 cm^2 04/16/24 1200 Wound Depth (cm) 0.1 cm 04/16/24 1200 Wound Volume (cm^3) 0.066 cm^3 04/16/24 1200 Wound Healing % 78 04/16/24 1200 Drainage Description Serosanguineous 04/16/24 1200 Drainage Amount Moderate 04/16/24 1200 Treatments Cleansed;Site care 04/16/24 1200 Dressing Changed Changed 04/16/24 1200 Dressing Status Removed 04/16/24 1200 Wound Bed Granulation (%) 100 % 04/06/24 1400 Wound Bed Eschar (%) 100 % 04/16/24 1200 Edges Well-defined edges 04/16/24 1200 Non-staged Wound Description Full thickness 04/16/24 1200 Pertinent Labs: No results found for: ALB , WBC , PREALBUMIN , HEMOGLOBIN A1C , POCT GLUCOSE Debridement Note: Procedures Debridement Progress Note addendum: -Healing goal is a reduction in wound volume of 30% at 4 weeks, 50% at 8 weeks, 75% at 12 weeks, and 100% at 16 weeks. Will continually reassess and adjust the treatment strategy if not on the healing curve. -I have asked the patient to see me frequently for treatment at the wound clinic, and expressed theimportance of compliance with this request. Dressing changes may be scheduled more frequently as needed at the wound clinic or with home care. -Vascular status will continually be assessed during treatment and appropriate vascular specialty referral made when indicated. -The wound will be continually assessed for the presence of infection. If infection is suspected, appropriate intervention or referral to infection disease specialist will be considered. -The patient has been educated concerning the need for increased protein to aid wound healing. -It is also recommended that the patient work with their PCP to optimize metabolic status and glycemic control. PLAN OF CARE No diagnosis found. Provider Orders: Patient Instructions PHYSICIAN ORDERS and applied at clinic Go to ER if present with fever, shaking, chills, increased redness, or excess drainage. If you have any questions or concerns, please contact the wound center at Dept: [phone] Home Health: Home Health: [facility] Fax orders to Home Health Go to ER if present with fever, shaking,chills, increased redness, or excess drainage. If you have any questions or concerns please contact the wound center at Dept: [phone] Hand Hygiene: (W)basilio hands before and after wound care. Call Wound Center at Dept: [phone] you have signs and symptoms of infection such as fever, chills, unusual or increased drainage, increasing odor, or unusual redness. Anesthetic: Topical 5% Lidocaine Ointment to wound bed prior to debridement Home Health Other: - [facility] [phone] fax: [phone] PT/OT: Please evaluate for ROHO cushion, overlay air mattress, foam protective booties Dietary Increased protein. - Protein, vitamin C, zinc Edema Control - Orders / Instructions Elevate legs to the level of the heart or above for 30 minutes daily and/or when sitting Bathing/Showering/Hygiene May shower with protection but do not get wound dressing(s) wet. Protect dressing(s) with water repellant cover (for example, large plastic bag) or a cast cover and may then take shower. Wound Treatment: Frequency 3x per week Wound Location: Ankle; Right, Lateral Cleanser - Sodium Chloride irrigation solution 0.9%, 250 (ml) bottle Primary Dressing - gentamicin ointment 0.1 %, adaptic Secured With - foam dressing Goals for the wound(s): Expected frequency of encounters: Anticipated duration of treatment: Potential to heal: Plan: Gentamicin ointment as contact. Return in 1 week. All questions were answered to his satisfaction. He was counseled regarding my impressions, instructions for management, and the importance of compliance with treatment. The wound will be continually assessed for the presence of infection. If infection is suspected, appropriate intervention or referral to infection disease specialist will be considered. The patient has been educated concerning the need for increased protein in his diet for wound healing. It is also recommended that he work with his PCP to optimize his metabolic status and glycemic control as appropriate. Follow up in about 2 weeks (around 04/30/2024), or if symptoms worsen or fail to improve. 04/16/2024 1:40 PM EST Pepe Pandey DPM documented in this encounter Plan of Treatment Upcoming Encounters Date Type Department Care Team (Late st Contact Info) Description 04/30/2024 1:45 PM EDT Office Visit [facility] [place] [address] [place] [address] Pepe Pandey, DPReddy [address] [place] [address] documented as of this encounter Visit Diagnoses Diagnosis Pressure injury of right ankle, stage 2 (CMS/HCC)- Primary documented in this encounter Care Teams Firearms Assembly Supervisor Relationship Specialty Start Date End Date Meka Horan NP PCP - General 07/07/23 documented as of this encounter
--- OUTSIDE RECORDS SUMMARY | 2024-04-18 18:14 | XMS_ITS | Encounter Summary ---
Author Organization [facility] Address [address] [place] [address] Care Team Providers Care Vice President Pharmacy Name Role Phone Seamus Koehler Primary Care Provider [phone] Encounter Details Date Type Department Care Team (Late st Contact Info) Description 05/18/2021 myChart Message [facility] [address] [place] [address] Joanne Toro MD [address] [place] [address] Need assistance with managing off times Social History Tobacco Use Types Packs/Day Years [...] on filedocumented in this encounter Care Teams Vice President Pharmacy Relationship Specialty Start Date End Date Seamus Koehler [address] [place] [address] PCP - General Internal Medicine 12/24/16 documented as of this encounter
--- OUTSIDE RECORDS SUMMARY | 2024-04-18 18:14 | XMS_ITS | Encounter Summary ---
Author Organization [facility] Address [address] [place] [address] Care Team Providers Care Woodwork Teacher Name Role Phone Seamus Koehler Primary Care Provider [phone] Encounter Details Date Type Department Care Team (Late st Contact Info) Description 05/18/2021 myChart Message [facility] [address] [place] [address] Caitie Alvarez NP [address] [place] [address] Rx changes Social History Tobacco Use Types Packs/Day Years [...] on filedocumented in this encounter Care Teams Woodwork Teacher Relationship Specialty Start Date End Date Seamus Koehler [address] [place] [address] PCP - General Internal Medicine 12/24/16 documented as of this encounter
--- OUTSIDE RECORDS SUMMARY | 2024-04-18 18:14 | XMS_ITS | Encounter Summary ---
Author Organization [facility] Address [address] [place] [address] Care Team Providers Care Internet Specialist Name Role Phone Seamus Koehler Primary Care Provider [phone] Encounter Details Date Type Department Care Team (Late st Contact Info) Description 05/04/2021 myChart Message [facility] [address] [place] [address] Joanne Toro MD [address] [place] [address] Swallow test referral Social History Tobacco Use [...] on filedocumented in this encounter Care Teams Internet Specialist Relationship Specialty Start Date End Date Seamus Koehler [address] [place] [address] PCP - General Internal Medicine 12/24/16 documented as of this encounter
--- OUTSIDE RECORDS SUMMARY | 2024-04-18 18:14 | XMS_ITS | Clinical Summary ---
Author Organization [address] [facility] Address [address] [place] [address] Phone Care Team Providers Care Decorative Cutting Machine Tender Name Role Phone Meka Horan PIPING BLOCKER Primary Care Provider David rees Allergies No known active allergies Medications aspirin 81 mg EC tablet Take 1 tablet (81 mg total) by mouth 1 (one) time each day. 3 Active carbidopa-levod opa CR (SINEMET CR) 50-200 mg per CR tablet Take 1 tablet at bedtime and one overnight as needed 3 Active cyanocobalamin (VITAMIN B-12) 100 mcg tablet Take 1 tablet (100 mcg total) by mouth 1 (one) time each day. 4 Active metoprolol succinate (TOPROL-XL) 25 mg 24 hr tablet Take 1 tablet (25 mg total) by mouth. 3 Active sulfamethoxazol e-trimethoprim (BACTRIM DS,SEPTRA DS) 800-160 mg per tablet 4 Active Active Problems Problem Noted Date Diagnosed Date Pressure injury of right ankle, stage 2 12/22/19 24 Pressure injury of left hip, stage 2 12/22/2023 Encounters Date Type Department Care Team Description 04/16/2024 12:30 PM EST Office Visit [place] [facility] [address] [place] [address] Pepe Pandey, DPM Pressure injury of right ankle, stage 2 (CMS/HCC) (Primary Dx) 04/06/2024 1:45 PM EST Office Visit [facility] [place] [address] [place] [address] Pepe Pandey DPM Pressure injury of right ankle, stage 2 (CMS/HCC) (Primary Dx) 03/19/2024 1:30 PM EST Office Visit [facility] [place] [address] [place] [address] Valerie Arnold, PIPING BLOCKER Pressure injury of right ankle, stage 2 (CMS/HCC) (Primary Dx) 03/05/2024 1:45 PM EST Office Visit [facility] [place] [address] [place] [address] Valerie Arnold, PIPING BLOCKER Pressure injury of right ankle, stage 2 (CMS/HCC) (Primary Dx) 02/14/2024 12:30 PM EST Office Visit [facility] [place] [address] [place] [address] Valerie Arnold, PIPING BLOCKER Pressure injury of right ankle, stage 2 (CMS/HCC) (Primary Dx) 02/01/2024 11:15 AM EST Office Visit [facility] [place] [address] [place] [address] Hollie Chandler PA Pressure injury of right ankle, stage 2 (CMS/HCC) (Primary Dx); Pressure injury of left hip, stage 2 (CMS/HCC) from Last 3 Months Surgical History Surgery Date Site/Laterality Comments TOTAL KNEE ARTHROPLASTY Right PROCEDURE:REPLACEMENT TOTAL KNEE TRIGGER FINGER RELEASE PROCEDURE:TRIGGER FINGER RELEASE Medical History Medical History Date Comments Overweight 07/07/2023 DX:Overweight Family History Medical History Relation Name Comments Thyroid cancer Brother Prostate cancer Father Alzheimer's disease Mother Diabetes Sister 1 Dementia Sister 2 Relation Name Status Comments Brother Alive Father Mother Sister 1 Alive Sister 2 Alive Social History Tobacco Use Types Packs/Day Years Used Date Smoking Tobacco: Former Smokeless Tobacco: Never Tobacco Cessation:Counseling Given: Not Answered Alcohol Use Standard Drinks/Week Comments Not Currently 0 (1 standard drink = 0.6 oz pur e alcohol) Sex and Gender Information Value Date Recorded Sex Assigned at Male 08/16/2023 9:16 AM EDT Legal Sex Male 8:29 PM EST Gender Identity Male 08/16/2023 9:16 AM EDT Sexual Orientation Straight 08/16/2023 9: 16 AM EDT Obstetrics History Last Filed Vital Signs Vital Sign Reading [...] - - Body Mass Index - - Plan of Treatment Upcoming Encounters Date Type Department Care Team (Late st Contact Info) Description 04/30/2024 1:45 PM EDT Office Visit [facility] [place] [address] [facility] [address] [place] [address] Pepe Pandey, NIRMAL [address] [place] [address] Health Maintenance Due Date Last Done Comments Pneumococcal Vaccine: 50+ Years (1 of 1 - PCV) 2006 Zoster Vaccines (1 of 2) 2006 Abdominal Aortic Aneurysm (AAA) Screen 03/11/2023 Colorectal Cancer Screening: Colonoscopy 03/11/2023 Depression Screening 03/11/2023 Hepatitis C Screening 03/11/2023 Medicare Annual Wellness Visit 03/11/2023 Social Influencers of Health Screening 03/11/2023 COVID-19 Vaccine ( season) 2023 12/11/2021, 02/11/2021, 07/02/2020, Additional history exists Influenza Vaccine (#1) 2023 , 02/17/2016, 01/24/2015 Falls Risk Assessment 04/16/2025 04/16/2024 Cholesterol Screening (Lipid Panel) 08/09/2028 08/10/2023 DTaP,Tdap,and Td Vaccines (4 - Td or Tdap) 04/30/2030 04/30/2020, 04/16/2009, 07/15/1999 RSV Immunization Patients 60+ Years Old (1 - 1-dose 75+ series) 11/24/2031 HIB Vaccines Aged Out No longer eligi ble based on patient's age to complete this topic HPV Vaccines Aged Out No longer eligi ble based on patient's age to complete this topic Hepatitis A Vaccines Aged Out No long er eligible based on patient's age to complete this topic Hepatitis B Vaccines Aged Out No long er eligible based on patient's age to complete this topic IPV Vaccines Aged Out No longer eligi ble based on patient's age to complete this topic MMR Vaccines Aged Out No longer eligi ble based on patient's age to complete this topic Meningococcal ACWY Vaccine Aged Out N o longer eligible based on patient's age to complete this topic Meningococcal B Vacine Aged Out No lo nger eligible based on patient's age to complete this topic RSV Immunization Patients Under 20 months Aged Out No longer eligible based on patient's age to complete this topic Varicella Vaccines Aged Out No longer eligible based on patient's age to complete this topic Procedures Procedure Name Priority Date/Time Associated Diagnosis Comments DEBRIDEMENT Routine 02/01/2024 11:15 AM EST Pressure injury of right ankle, stage 2 (CMS/HCC) from Last 3 Months Results * Debridement Pressure Injury Distal;Right Calf (02/01/2024 11:15 AM EST) Narrative Nik Azul MD - 02/01/2024 11:15 AM EST GONSALO Collado ? 02/01/2024 12:13 PM Debridement Pressure Injury Distal;Right Calf Performed by: GONSALO Collado Authorized by: GONSALO Collado ?? Associated wounds: Wound Pressure Injury 12/22/23 Calf Distal;Right Consent: ??Consent obtained: ??Verbal ??Consent given by: ??Patient ??Risks discussed: Yes ?? Time out: Immediately prior to the procedure a time out was called ?? Time out performed at: ??02/01/2024 12:02 PM Debridement Details: ??Performed by: ??PA ??Type: chemical ?Pain control: ??Lidocaine 4% ??Pain control administration: topical anesthesia ?Severity of Tissue Pre Debridement: ??Fat layer exposed ??Severity of Tissue Post Debridement: ??Fat layer exposed ??Time taken: ??02/01/2024 11:00 AM ??Length (cm): ??2 ??Width (cm): ??1.5 ??Depth (cm): ??0.1 ??Area (cm^2): ??3 ??Time taken: ??02/01/2024 11:01 AM ??Length (cm): ??2 ??Width (cm): ??1.5 ??Depth (cm): ??0.1 ??Percent Debrided (%): ??100 ??Surface Area (cm^2): ??3 ??Area Debrided (cm^2): ??3 ??Volume (cm^3): ??0.3 ??Tissue and other material debrided: epidermis ?Hemostasis obtained with: ??Silver nitrate ??Procedural pain: ??0 ??Post-procedural pain: ??0 ??Response to treatment: ??Procedure was tolerated well us Hollie BRUSH IN CLINIC/BEDSIDE ORDERAB LES Final Result from Last 3 [place] [id number] [facility] [address] [place] [address] Care Teams Decorative Cutting Machine Tender Relationship Specialty Start Date End Date Meka Horan NP PCP - General 07/07/23
--- OUTSIDE RECORDS SUMMARY | 2024-04-18 18:15 | XMS_ITS | Encounter Summary ---
Author Organization [facility] Address [address] [place] [address] Care Team Providers Care Neonatal Pediatric Nurse Name Role Phone Seamus Koehler Primary Care Provider [phone] Encounter Details Date Type Department Care Team (Late st Contact Info) Description 02/03/2022 myChart Message [facility] [address] [place] [address] Caitie Alvarez COMPUTER METHODS ANALYST [address] [place] [address] Midodrine dose Social History Tobacco Use Types Packs/Day Years [...] on filedocumented in this encounter Care Teams Neonatal Pediatric Nurse Relationship Specialty Start Date End Date Seamus Koehler [address] [place] [address] PCP - General Internal Medicine 12/24/16 documented as of this encounter
--- OUTSIDE RECORDS SUMMARY | 2024-04-18 18:15 | XMS_ITS | Encounter Summary ---
Author Organization [facility] Address [address] [place] [address] Care Team Providers Care Video Game Producer Name Role Phone Seamus Koehler Primary Care Provider [phone] Encounter Details Date Type Department Care Team (Late st Contact Info) Description 06/15/2021 myChart Message [facility] [address] [place], [place] [id number] Joanne Toro MD [address] [place], [place] [id number] PT Eval.Request Social History Tobacco Use Types Packs/Day Years [...] encounter Miscellaneous Notes * Telephone Encounter - Joanne Toro MD - 06/16/2021 10:44 AM EDTFrom: Nasir Mcdonald To: Physician Joanne Toro Sent: 06/15/2021 4:23 PM EDT Subject: PT Eval.Request Abebe would like to get a PT evaluation referral for Muna Hu. She is out of network for us. Her phone is [phone] and her email is [email or web address] He has an appt set for June 23. We were unable to facilitate [facility] barium swallow test. They have referral, but we do not have a appt. as of yet. Mikhailyou. documented in this encounter Plan of Treatment Not on file documented as of this encounter Visit Diagnoses Diagnosis PD (Parkinson's disease) (HCC)- Primary Paralysis agitans documented in this encounter Care Teams Video Game Producer Relationship Specialty Start Date End Date Seamus Koehler [address] [place] [address] PCP - General Internal Medicine 12/24/16 documented as of this encounter
--- OUTSIDE RECORDS SUMMARY | 2024-04-18 18:15 | XMS_ITS | Encounter Summary ---
Author Organization [facility] Address [address] [place] [address] Care Team Providers Care Grain Packer Name Role Phone Seamus Koehler Primary Care Provider [phone] Encounter Details Date Type Department Care Team (Late st Contact Info) Description 02/12/2021 myChart Message [facility] [address] [place] [address] Caitie Alvarez NP [address] [place] [address] [facility] Social History Tobacco Use Types Packs/Day Years [...] on filedocumented in this encounter Care Teams Grain Packer Relationship Specialty Start Date End Date Seamus Koehler [address] [place] [address] PCP - General Internal Medicine 12/24/16 documented as of this encounter
--- OUTSIDE RECORDS SUMMARY | 2024-04-18 18:15 | XMS_ITS | Encounter Summary ---
Author Organization [facility] Address [address] [place] [address] Care Team Providers Care Tobacco Stripper Hand Name Role Phone Seamus Koehler Primary Care Provider [phone] Encounter Details Date Type Department Care Team (Late st Contact Info) Description 02/25/2022 myChart Message [facility] [address] [place] [address] Caitie Alvarez NP [address] [place] [address] Troubling situation Social History Tobacco Use Types Packs/Day Years [...] encounter Miscellaneous Notes * Telephone Encounter - Caitie Alvarez NP - 02/26/2022 3:41 PM ESTFrom: Nasir Mcdonald To: SHREYA Alvarez Sent: 02/25/2022 5:55 AM EST Subject: Troubling situation Abebe is always taking his carbidopa/levadopa early ( or taking 1/2 a pill) because his off times aremore frequent and much worse. Should his medication dose/schedule be adjusted? He can barely function when he is off. His biggest issues are weakness, shortness of breath and neck pain.. This occurs day and night. He looks with a leandra stare, needs assistance walking and using the bathroom seems like he is dying. Nights are difficult since he had to use the bathroom frequently. I also think anxiety is part of the problem. How do you feel about cannabis? Do you think it could help with sleep and anxiety? He is testing negative for COVID. documented in this encounter Plan of Treatment Not on file documented as of this encounter Visit Diagnoses Not on filedocumented in this encounter Care Teams Tobacco Stripper Hand Relationship Specialty Start Date End Date Seamus Koehler [address] [place] [id number] PCP - General Internal Medicine 12/24/16 documented as of this encounter
--- OUTSIDE RECORDS SUMMARY | 2024-04-18 18:15 | XMS_ITS | Encounter Summary ---
Author Organization [facility] Address [address] [place] [address] Care Team Providers Care Test Evaluator Name Role Phone Seamus Koehler Primary Care Provider [phone] Encounter Details Date Type Department Care Team (Late st Contact Info) Description 02/17/2022 Risk Identhart Message [facility] [address] [place] [address] Caitie Alvarez NP [address] [place] [address] More off time/ shortness of breath Social History Tobacco Use Types Packs/Day Years [...] on filedocumented in this encounter Care Teams Test Evaluator Relationship Specialty Start Date End Date Seamus Koehler [address] [place] [address] PCP - General Internal Medicine 12/24/16 documented as of this encounter
--- OUTSIDE RECORDS SUMMARY | 2024-04-18 18:15 | XMS_ITS | Encounter Summary ---
Author Organization [facility] Address [address] [place] [address] Care Team Providers Care Manager Quality Systems Name Role Phone Seamus Koehler Primary Care Provider [phone] Encounter Details Date Type Department Care Team (Late st Contact Info) Description 03/08/2022 myChart Message [facility] [address] [place] [address] Caitie Alvarez NP [address] [place] [address] Duloxetine- needs exception to be vovered Social History Tobacco Use Types Packs/Day Years [...] on filedocumented in this encounter Care Teams Manager Quality Systems Relationship Specialty Start Date End Date Seamus Koehler [address] [place] [address] PCP - General Internal Medicine 11/10/17 documented as of this encounter
--- OUTSIDE RECORDS SUMMARY | 2024-04-18 18:15 | XMS_ITS | Encounter Summary ---
Author Organization [facility] Address [address] [place] [address] Care Team Providers Care Install Technician Name Role Phone Seamus Koehler Primary Care Provider [phone] Encounter Details Date Type Department Care Team (Late st Contact Info) Description 03/11/2021 myChart Message [facility] [address] [place] [address] Caitie Alvarez NP [address] [place] [address] [facility] Social History Tobacco Use [...] on filedocumented in this encounter Care Teams Install Technician Relationship Specialty Start Date End Date Seamus Koehler [address] [place] [address] PCP - General Internal Medicine 12/24/16 documented as of this encounter
--- OUTSIDE RECORDS SUMMARY | 2024-04-18 18:15 | XMS_ITS | Referral Summary ---
Author Organization [facility] Address [address] [place] [address] Care Team Providers Care Sister Superior Name Role Phone Seamus Koehler Primary Care Provider Allergies No known active allergies Medications aspirin 81 mg EC tablet Take 81 mg by mouth daily. Active amoxicillin (AMOXIL) 500 mg capsule TAKE 4 CAPSULES BY MOUTH ONE HOUR PRIOR TO DENTAL WORK. 1 Active Linzess 145 mcg capsule 145 mcg daily as needed. 2 Active carbidopa-levod opa (SINEMET) 25-100 mg per tabletIndicatio ns:PD (Parkinson's disease) (HCC) Take 1.5 tabs at 7A, 9:30A, 1 tab 12PM, 1.5 tabs at 2:30pm, 1 tab at 5PM and 1 tab at 7:30PM and 1/2 tab 2-3x/day as needed 810 tablet 3 3 Active midodrine (PROAMATINE) 2.5 mg tablet Take 2.5 mg by mouth as needed. 3 Active metoprolol succinate XL (TOPROL XL) 25 mg tablet Take 25 mg by mouth once a day. Active clonazePAM (KlonoPIN) 0.5 mg tabletIndicatio ns:REM sleep behavior disorder TAKE ONE TABLET BY MOUTH EVERY DAY AT BEDTIME 30 tablet [address] (CYMBALTA) 60 mg capsule Take 1 capsule (60 mg total) by mouth once a day. 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 Motor Sx include bilateral Lt>Rt mild termor, bradykinesia, rigidity. Balance is maintained with no assistance. UPRDS 36. H&Y 2. NMS include mild cognitive slowing, constipation, RBD, and swallowing difficulty. No motor complications reported. He exercises daily. He hydrates well. Neuropsych Testing 09/2018: IMPRESSION: This pattern is not uncommon in individuals with Parkinson's disease, and is not suggestive of an underlying dementia at the present time. Assessment & Plan (10/14/2022 1:13 PM EDT): Abebe presents for follow-up of iPD, likely atypical with significant progression complicated by sudden OFFs, motor fluctuations, dementia and nOH. He saw Caitie Alvarez NP last week for ON/OFF testing and monitoring and has a response to C/L with OFF 73 and ON 47. However he had significant nOH as well. They have monitored BPs but did not bring the log so asked to send it later. He is OFF during visit today and with difficulty focusing. His C/L dose did not kick in. We discussed taking extra 1/2 tab as needed if having sudden OFF. Since last visit with Caitie, they discussed Duopa intestinal formulation and are willing to move forward with this. We will start the process of setting this up. Of note, patient has >3 hours of disabling OFF time daily despite medical therapy with C/L and opicapone. He is clearly levodopa responsive based on ON/OFF testing by Caitie Alvarez. PD diagnosis is based on bradykinesia, tremor, rigidity and postural instability. In the meantime, recommended following instructions on med changes as detailed at last visit. Radha is in the process of hiring new regional loss prevention manager to help with care at home. -cont Carbidopa/levodopa 25/100 IR 1.5 tabs at 7AM, 1 tab at 9:30AM, 1 tab at 12PM, 1.5 tabs at 2:30PM, 1 tab at 5PM -cont C/L ER 50-200mg 1 tab at 7:30PM -cont Opicapone 25mg 1 tab at bedtime -sent BP log to us -start Duopa initiation process -cont fludrocortisone 0.1mg at 8A and 12N -follow up scheduled with Caitie in Oct Assessment & Plan (06/17/2022 10:03 AM EDT): Abebe presents for urgent follow-up of PD complicated by motor fluctuations, dose failures, hallucinations, and nOH. He had a difficult period of a few weeks with significant worsening of symptoms and requiring increase in help. This has mostly improved and was likely triggered by constipation at the time. However, continues to have difficulty overnight. Radha gets up to help him use the bathroom and this is occurring 5-6x/night. He is restless with tingling and leg cramps at night as well. We discussed urology follow-up to retry meds or start new meds for urinary frequency. Abebe feels he can generally fall back asleep. We also discussed a bedside commode and bed rail to help get up. They are seeing PCP later and have a liaison who will coordinate PT/OT at home who can help guide accommodations at home. We also discussed using C/L 25-100mg 1/2 tabs overnight if needed as this may help with tremors and RLS symptoms. Abebe received his CPAP recently however it is not what they expected and a large mask. They are unsure Abbee will be able to comply especially since he is getting up multiple times at night. Also discussed monitoring BP as he has a history of low BP and recently cardiology recommended restarting midodrine which he has tried in the past and had dizziness as a side effect. -follow up with urologist regarding possible medication options -use C/L 1/2 tab overnight as needed -BP check- sitting and standing over the next week and send results to office -commode next to the bed -follow up in July with Caitie and with me in Oct Assessment & Plan (03/19/2022 5:22 PM EST): Abebe presents for follow-up of PD v. Atypical parkinsonism with significant progression over 5 years since diagnosis with motor fluctuations, cognitive impairment and psychosis. He has tried multiple different medications which were either not effective or had side effects. He is currently on C/L regimen 650mg daily + ER 50-200mg at bedtime. He also takes Ongentys at bedtime. Cymbalta was recently increased to 40mg daily. He continues to have significant anxiety. Also on clonazepam 0.5mg at bedtime. He is no longer taking midodrine. No dizziness. Currently, anxiety and specifically shortness of breath is still an issue and limits his overall activity. However, he is back doing RSB 4x/week and during this, he is rarely short of breath. He has significant fluctuations on a daily basis. Constipation is generally ok but at times, not controlled. He takes Linzess but not regularly due to diarrhea; encouraged Radha to manage this including using prune juice or other meds. He has delusions of little girl a few times a week. He is redirectable. He is following with urology in [place]. We discussed limited treatment options. We can consider Nourianz as an adjunct to reduce OFF time. Alternatively, can consider Duopa continuous gel infusion. Abebe is not particularly interested in Duopa. He is not a DBS candidate due to cognitive impairment and risk based on neuropsych eval. We will consider a-syn biopsy for possible MSA. -consider Nourianz -will discuss a-syn skin biopsy with Caitie -cont current med regimen -encouraged daily exercise -f/u with Caitie in 3 months and with in 6 months Assessment & Plan (07/31/2021 10:17 AM EDT): Abebe presents for follow-up of PD complicated by dyskinesias, motor fluctiations. He has been fairly stable on current med regimen of C/L 1.5 tabs every 3 hours. However, they note that he is not routine about meds, sleep/wake cycle, or meals so he may take meds 1/2 hour off from scheduled time. Dyskinesias are much improved with opicapone and off Rytary. He still has sexual compulsions but somewhat improved with lower dose of opicapone. They are rowing for exercise with family and it is going well. He has had a couple of falls, likely due to balance as his R foot has severe eversion while walking. They have tried specific shoes for this without any change. He is going to see [place] [facility] [place]. Denies any significant hallucinations; continues to have illusions. Anxiety is generally controlled with Cymbalta and clonazepam. As far as [facility], he did not bring BP log with him. He has mild lightheadedness a few times a day. He is taking midodrine 2.5mg in the morning. Will add a dose at noon and advised him to continue monitoring. For constipation, he is going to see GI at [place]. He is having Miralax daily and even twice a day is not helping. 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 Discussed DBS and levodopa intestinal gel infusion (Duopa). He has neuropsych testing in August. If he is not a candidate for DBS, can consider Duopa given his frequent dosing. -increase midodrine to 2.5mg at 8A and 12N -cont C/L as prescribed -continue monitoring BP sitting and standing 1 hr after midodrine -cont daily exercise -counseled on the importance of routine for sleep/wake, meals, meds -follow up in Oct with Caitie and with me in Mar Assessment & Plan (05/08/2021 11:13 AM EDT): Abebe presents for follow-up for PD. He was recently on vacation in [place]. He was seen 1 month ago with , Linda. He reports that he is contnuing to struggle on Rytary. There are full afternoons where he is pacing and unable to participate in activity. This can occur 3-4 times a week. There are other times where he has dose failures. He has been using C/L 25-100mg 1 tab as needed around 11A and 3PM although this can vary. He also takes 1 tab at 9AM. He is having more dyskinesias affecting his face and arm. Also having hallucinations daily. Caitie had decreased his Rytary 145mg caps to 2x/day and we will taper this off over the next two weeks to see it if helps with the dyskinesias. We have also discussed switching back to C/L and this reduction in Rytary may be the first step to that. He notes that he is having increase in anxiety overall. This affects his ability to sleep. He is on clonazepam 0.25mg at bedtime. We discussed increasing this to 0.5mg at bedtime. Since he is having more anxiety, will start Cymbalta 30mg in 2 weeks (once he has tapered off the Rytary 145mg caps). Will continue Rytary 195mg dose without change. Given we are titrating multiple meds, will schedule a telehealth with Caitie in 3 weeks. He is participating in speech therapy. -over next 2 weeks cut down Rytary 145mg caps, stop 5PM and then stop 7AM -in 2 week, start Cymbalta 30mg daily -increase clonazepam 0.5mg at bedtime -telehealth with Caitie in 3 weeks, follow up with me in July as scheduled Assessment & Plan (04/09/2021 12:19 PM EST): Abebe presents for follow-up of L-sided iPD complicated by motor fluctuations, mild dyskinesias, nOH, RBD and anxiety. He has been declining over the past few months after switch to Rytary. They feel that Rytary is not kicking in consistently and he has dose failures, generally in the afternoon/early evening. This has prevented him from participating in some social activities. He also has a constellations of symptoms including shortness of breath, throat and chest tightening that is occurring intermittently and may be related to anxiety. He reports that when Rytary kicks in, it helps the symptoms. Unclear if this is a side effect of Rytary. Today, we discussed potentially switching back to C/L 25-100mg [dose could be 3 tabs every 4 hours to start] and adding opicapone. However, he preferred to continue with Rytary for now. We will add C/L 25-100mg 1 tab to take 1-2x/day as needed if Rytary does not kick in. I counseled them on not using it excessively. He is on midodrine 2.5mg daily and continues to monitor BP. We are also considering DBS and is scheduled for repeat neuropsych testing. Depending on results, can schedule for ON/OFF testing after that. As far as other NMS, he is not sleeping well. He restarted clonazepam but not taking it consistently. I recommended taking this consistently, from 1/2-1 tab of clonazepam 0.5mg at bedtime. We can consider an SSRI/SNRI for the symptoms that may be related to anxiety if he continues on Rytary. Also discussed PT and speech therapy. -continue Rytary -add C/L 25-100mg 1-2 tabs as needed for OFF times (he is taking 1 tab at 9AM daily) -continue clonazepam 0.25-0.5mg nightly -consider SNRI if clonazepam is not helping -for constipation encouraged increasing hydration, senna/colace and fiber in diet (consider referral to Dr. Escalante -review BP log at next visit -follow up in April telehealth, July and Oct in-person Assessment & Plan (10/03/2020 12:05 PM EDT): Abebe presents for follow-up of PD. He has had some worsening of symptoms since last visit. He has had more wearing OFF between doses about 3-3.5 hrs in. He doses Sinemet 25-100mg 3 tabs three times a day about 4 hours apart. We discussed reducing dose intervals however he prefers to add Inbrija to bridge between doses if needed. He may need this on DopaFit days. He believes that the C/L ER helps him through the night. Walking is slightly more unsteady. He has not done PT recently. As far as NMS, drooling has been more prominent and shirt has been getting wet from drooling. Will start glycopyrrolate for this. -Discussed Inbrija between doses -start glycopyrrolate 1mg twice daily -cont Sinemet 25-100mg 3 tabs three times a day -PT referral -follow up in 6 months Assessment & Plan (05/28/2020 2:01 PM EDT): Abebe presents for follow-up of PD. He has been stable since last telehealth visit in Feb 2020. He has had some wearing off and started taking his 2nd dose earlier from 12:30PM to 11:30AM. He was continuing to take last dose around 4:30PM. Given that he is having OFF times, we discussed tightening dose intervals to 4 hours. He is also waking up at night multiple times to urinate. He also has leg cramping at night. We discussed adding C/L ER 25-100mg 1-2 tabs at bedtime. He has also had toe curling and R ankle inversion. We discussed possible botulinum toxin injections in the future. In terms of NMS, he has been stable. RBD has not been an issue. BMs are regular. Swallowing is stable. Speech has worsened and we discussed restarting exercises for speech. Given urinary frequency and nocturia, discussed that he should discuss with his urologist. Will also pursue PT for gait and balance. -increase C/L 25-100 to 3 tabs at 8A-12N-4P -start C/L 25-100 1-2 tabs at bedtime -speech exercises -PT referral for ankle rolling and gait instability -continue exercise -follow up on 10/02 at 3pm for in-person visit Assessment & Plan (02/27/2020 11:05 PM EST): Abebe presents for follow-up of PD. He has been doing very well since R knee replacement in Nov 2019. He is going through PT and just restarted DopaFit. He continues to have leg cramping at night. Discussed increasing hydration. If leg cramping continues, can consider adding C/L ER at bedtime v. botox injection. He was on clonazepam for RBD but stopped after knee replacement. RBD continues so discussed restarting this. Drooling has increased. Discussed keeping a lozenge in the mouth. If no improvement, can consider starting glycopyrrolate. NMS are stable. On exam, mild bradykinesia in hand movements and mild neck dyskinesias. Gait is steady and smooth, R knee turns slightly inward but improved form last visit. Nasir has been doing very well since R knee replacement. Encouraged continued exercise. -cont C/L 25-100mg 3-2.5-2.5 -monitor drooling; use lozenges during the day -continue exercise -increase hydration for cramping -restart clonazepam 0.5mg at bedtime -consider adding C/L ER at bedtime for leg cramping -follow up in 4 months (telehealth) and 8 months in-person Assessment & Plan (08/29/2019 11:28 AM EDT): Abebe presents for follow-up of PD. This was a telehealth video visit. Since last visit with Caitie, he has continued to have wearing off of C/L around 11am when he will feel tired. He takes doses about 4-5 hours apart. He feels kicking in within 30 mins. We discussed increasing 8AM dose to 3 tabs from 2.5 and keeping the other 2 doses at 2.5 tabs. If this is not effective, can consider narrowing dose intervals to 4 hours. He continues to have toe curling and leg cramps at night. I encouraged him to increase hydration. We can consider botulinum injections but may want to wait until after surgery. He has had worsening hypophonia for which he has done speech therapy but not continued the exercises. Also reports difficulty hearing despite hearing aides and will have these evaluated next week. Constipation is well-controlled. RBD is controlled with clonazepam. He has continued to have falls including one down the cellar steps. He is due to a knee replacement in November. Currently, while walking, his R knee turns significantly inward and he walks on the outside of the foot. There is knee pain as well. He is not using any assistive devices. I recommended that he use a 4-pronged cane for balance until surgery. He continues to walk for exercise but has not been able to do DopaFit. Recommended avoiding hikes due to uneven ground and risk of falls. He recently retired from work. He has been driving however , Muna, brings up that he has been slow to get foot on the brake. I recommended a driving eval through [facility] or other rehab center. -C/L 25-100mg- increase first dose to 3 tabs at 8A, 2.5 tabs at 12N and 5:30P -cane or walker at least until November for stability -consider botulinum injections for toe curling (potentially after surgery) -consider driving evaluation at [facility] or other rehab as has concerns -increase hydration to 60-80 oz/day -cont clonazepam for RBD -start voice exercises for hypophonia (has done speech therapy with Geneva Mcneal) Assessment & Plan (01/03/2019 3:32 PM EST): Mr. Mcdonald presents for follow-up of IPD diagnosed in 2016. Currently he is on carbidopa-levodopa 25-100 mg 2 tablets 3 times daily. Since this increase, he feels that it has helped with mobility. He has mild wearing off about 30 minutes prior to dose. Denies any dyskinesias or hallucinations. He has tried ropinirole however developed dizziness at higher doses. He has toe dystonia most notably in the evening, not affecting his walking. 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 He is also participating in [employer] a few times weekly. In terms of nonmotor symptoms, he has RBD which is occurring nightly. We discussed trial of melatonin for this. He also endorses memory impairment and slowed processing. He had neuropsychological testing which was consistent with changes seen in Parkinson's disease. He has constipation for which he takes prune juice. We discussed adding MiraLAX and increasing hydration. Nocturia is stable. Mood is stable. On exam he has rigidity in both upper limbs left worse than right and bradykinesia left worse than right. He is likely still underdosed in terms of levodopa. We discussed increasing dose to 2-1/2 tablets 3 times daily and monitoring for adverse effects. - increase C/L to 2.5 tabs TID - encouraged daily exercise - start Melatonin 3mg-6mg for acting out dreams - start Miralax for constipation 1/2 cap, 1 cap - Consistently do speech therapy exercises at home Assessment & Plan (03/03/2018 3:43 PM EST): Akinetic rigid iPD (dx'd 2016), stable since last visit. Motor symptoms are well managed with his current regimen of carbidopa/levodopa (1 tab tid). Tremor is well controlled. Balance is maintained. Gait is multi-factorial with OA being a contributor. Discussed spacing C/L from meals with protein and reviewed rationale for taking medication at consistent times during the day. Constipation is under reasonable control with diet. Discussed bowel regimen with Miralax if needed. Plan: 1. Continue current medication regimen with C/L and take doses at consistent time each day. Provided a symptom diary template, if needed. 2. PT referral provided - he plans to call Muna Hu. 3. Encouraged continued exercise. 4. Follow-up in 6 months; sooner prn. Impaired gait 01/07/2017 Sensorineural hearing loss (SNHL) of both ears 1 03/09/2016 ANITA on CPAP 01/07/2017 Osteoarthritis of right knee 01/07/2017 Trigger middle finger of right hand 01/07/2017 Social History Tobacco Use Types Packs/Day Years Used Date Smoking Tobacco: Former Cigarettes Q uit: 1985 Smokeless Tobacco: Never Tobacco Cessation:Counseling Given: Not Answered Alcohol Use Standard Drinks/Week Comments Yes 0 (1 standard drink = 0.6 oz pur e alcohol) 2 x month Sex and Gender Information Value Date Recorded Sex Assigned at Male 02/02/2021 9:28 PM EST Legal Sex Male 12:35 PM EST Gender Identity Male 02/02/2021 9:28 PM EST Sexual Orientation Straight 02/02/2021 9: 28 PM EST Last Filed Vital Signs Vital Sign Reading Time Taken Comments Blood Pressure 127/80 10/06/2022 10:07 AM EDT Pulse 79 10/06/2022 10:07 AM EDT Temperature 35.7 ??C (96.3 ??F) 10/06/2022 10:04 AM E DT Respiratory Rate 18 10/06/2022 10:04 AM EDT Oxygen Saturation - - Inhaled Oxygen Concentration - - Weight 77.1 kg (170 lb) 11/09/2022 9:23 AM EDT Height 182.9 cm (6') 08/02/2022 4:15 PM EDT Body Mass Index 23.06 08/02/2022 4:15 PM EDT Plan of Treatment Not on file Insurance MEDICARE [facility] Care Teams Sister Superior Relationship Specialty Start Date End Date Seamus Koehler [address] [place] [id number] PCP - General Internal Medicine 12/24/16
--- OUTSIDE RECORDS SUMMARY | 2024-04-18 18:15 | XMS_ITS | Encounter Summary ---
Author Organization [facility] Address [address] [place] [address] Care Team Providers Care Flight Operations Engineer Name Role Phone Seamus Koehler Primary Care Provider [phone] Encounter Details Date Type Department Care Team (Late st Contact Info) Description 02/22/2022 myChart Message [facility] [address] [place] [address] Caitie Alvarez PROSTHETICS ASSISTANT [address] [place] [address] Midodrine Social History Tobacco Use Types Packs/Day Years [...] on filedocumented in this encounter Care Teams Flight Operations Engineer Relationship Specialty Start Date End Date Seamus Koehler [address] [place] [address] PCP - General Internal Medicine 12/24/16 documented as of this encounter
--- OUTSIDE RECORDS SUMMARY | 2024-04-18 18:15 | XMS_ITS | Encounter Summary ---
Author Organization [facility] Address [address] [place] [address] Care Team Providers Care Cost Control Supervisor Name Role Phone Seamus Koehler Primary Care Provider [phone] Encounter Details Date Type Department Care Team (Late st Contact Info) Description 02/13/2021 myChart Message [facility] [address] [place] [address] Caitie Alvarez NP [address] [place] [address] [facility] Social History Tobacco Use [...] on filedocumented in this encounter Care Teams Cost Control Supervisor Relationship Specialty Start Date End Date Seamus Koehler [address] [place] [address] PCP - General Internal Medicine 12/24/16 documented as of this encounter
--- OUTSIDE RECORDS SUMMARY | 2024-04-18 18:15 | XMS_ITS | Encounter Summary ---
Author Organization [facility] Address [address] [place] [address] Care Team Providers Care Debt Collector Name Role Phone Seamus Koehler Primary Care Provider [phone] Encounter Details Date Type Department Care Team (Late st Contact Info) Description 06/12/2021 myChart Message [facility] [address] [place] [address] Caitie Alvarez NP [address] [place] [address] Out of hospital questions with timing on new med Social History Tobacco Use Types Packs/Day Years [...] on filedocumented in this encounter Care Teams Debt Collector Relationship Specialty Start Date End Date Seamus Koehler [address] [place] [address] PCP - General Internal Medicine 12/24/16 documented as of this encounter
--- OUTSIDE RECORDS SUMMARY | 2024-04-18 18:15 | XMS_ITS | Encounter Summary ---
Author Organization [facility] Address [address] [place] [address] Care Team Providers Care Powerhouse Laborer Name Role Phone Meka Horan CHICKEN HANDLER Primary Care Provider David rees Reason for Visit * Reason Comments Wound Care Encounter Details Date Type Department Care Team (Late st Contact Info) Description 03/19/2024 1:30 PM EST Office Visit [facility] [place] [address] [place] [address] Valerie Arnold NP [address] [place] [address] Pressure injury of right ankle, stage 2 [...] Sign Reading Time Taken Comments Blood Pressure 114/67 03/19/2024 1:31 PM EST Pulse 69 03/19/2024 1:31 PM EST Temperature 36.9 ??C (98.5 ??F) 03/19/2024 1:31 PM ES T Respiratory Rate 16 03/19/2024 1:31 PM EST Oxygen Saturation 98% 03/19/2024 1:31 PM EST Inhaled Oxygen Concentration - - Weight - - Height - - Body Mass Index - - documented in this encounter Progress Notes * Elvis Nunez LPN - 03/19/2024 1:30 PM EST PHYSICIAN ORDERS and applied at clinic Go to ER if present with fever, shaking, chills, increased redness, or excess drainage. If you have any questions or concerns, please contact the wound center at Dept: [phone] Please obtain heel protector booties for bilateral feet educated on importance of obtaining offloading boot Home Health: Home Health: [facility] Fax orders to Home Health Go to ER if present with fever, shaking,chills, increased redness, or excess drainage. If you have any questions or concerns please contact the wound center at Dept: [phone] Hand Hygiene: (W)basilio hands before and after wound care. Call Wound Center at Dept: [phone] you have signs and symptoms of infection such as fever, chills, unusual or increased drainage, increasing odor, or unusual redness. Anesthetic: Topical 5% Lidocaine Ointment to wound bed prior to debridement Home Health Other: - [facility] [phone] fax: [phone] PT/OT: Please evaluate for ROHO cushion, overlay [...] 0.9%, 250 (ml) bottle Primary Dressing - adaptic Secured With - foam dressing * Valerie Arnold NP - 03/19/2024 1:30 PM EST Images from the original note were not included. Office Visit Visit Date: 03/19/2024 Patient Name: Nasir Mcdonald Date of : 1955 PCP: Meka Horan NP HPI: Nasir Mcdonald is a 68 y.o. male who presents to the wound care center for follow up evaluation and management of right ankle ulceration. He has tolerated his dressing changes well with VNA support. Denies any unusual symptomatology Past Medical History: Diagnosis Date Overweight 07/07/2023 [...] prior to visit. ROS Review of Systems Constitutional: Negative. HENT: Negative. Respiratory: Negative. Cardiovascular: Negative. Gastrointestinal: Negative. Skin: Positive for wound. Neurological: Negative. Psychiatric/Behavioral: Negative. Vital Signs: Visit Vitals BP 114/67 Pulse 69 Temp 36.9 ??C (98.5 ??F) Resp 16 SpO2 98% Smoking Status Former PHYSICAL EXAM Physical Exam Constitutional: Appearance: Normal appearance. HENT: Head: Normocephalic and atraumatic. Cardiovascular: Rate and Rhythm: Normal rate. Pulmonary: Effort: Pulmonary effort is normal. Abdominal: General: Abdomen is flat. Musculoskeletal: General: Normal range of motion. Skin: General: Skin is warm and dry. Findings: Wound present. Comments: Superficial wound of the left hip with clean wound base. No advancing erythema, streakingor purulence noted Neurological: Mental Status: He is alert. Psychiatric: Mood and Affect: Mood normal. Wound: As described. Wound is healing well. No signs of infection WOUND ASSESSMENT If photograph of wound not visible on this note, please check under Media tab. Wound Pressure Injury 12/22/23 Ankle Distal;Right (Active) Wound Image 12/22/23 1131 Wound Bed Tissue Assessment [place] 03/19/24 1400 Kallie-Wound Assessment [place] 03/19/24 1400 Shape Irregular 03/19/24 1400 Wound Length (cm) 1.1 cm 03/19/24 1400 Wound Width (cm) 0.8 cm 03/19/24 1400 Wound Surface Area (cm^2) 0.88 cm^2 03/19/24 1400 Wound Depth (cm) 0.1 cm 03/19/24 1400 Wound Volume (cm^3) 0.088 cm^3 03/19/24 1400 Wound Healing % 71 03/19/24 1400 Drainage Description Serosanguineous 03/19/24 1400 Drainage Amount Moderate 03/19/24 1400 Treatments Cleansed;Site care 03/19/24 1400 Dressing Changed Changed 03/19/24 1400 Dressing Status Removed;Old drainage 03/19/24 1400 Wound Bed Granulation (%) 100 % 02/14/24 1300 Edges Well-defined edges 03/19/24 1400 Non-staged Wound Description Full thickness 03/19/24 1400 Pertinent Labs: No results found for: ALB , WBC , PREALBUMIN , HEMOGLOBIN A1C , POCT GLUCOSE Debridement Note: Procedures no debridement required PLAN OF CARE No diagnosis found. Provider Orders: There are no Patient Instructions on file for this visit. Goals for the wound(s): -Healing goal is a reduction in wound volume of 30% at 4 weeks, 50% at 8 weeks, 75% at 12 weeks, and 100% at 16 weeks. Will continually reassess and adjust the treatment strategy if not on the healing curve. Potential to heal: Good potential to Heal Plan: Changed to Adaptic as contact. Return in 2 weeks All questions were answered to his satisfaction. [...] protein in his diet for wound healing. No follow-ups on file. 03/19/2024 2:07 PM EST Valerie Arnold NP documented in this encounter Plan of Treatment Upcoming Encounters Date Type Department Care Team (Late st Contact Info) Description 04/30/2024 1:45 PM EDT [facility] [address] [facility] [address] [place] [address] Pepe Pandey, NIRMAL [address] [place] [address] documented as of this encounter Visit Diagnoses Diagnosis Pressure injury of right ankle, stage 2 (CMS/HCC)- Primary documented in this encounter Care Teams Powerhouse Laborer Relationship Specialty Start Date End Date Meka Horan NP PCP - General 07/07/23 documented as of this encounter
--- OUTSIDE RECORDS SUMMARY | 2024-04-18 18:15 | XMS_ITS | Clinical Summary ---
Author Organization [facility] Address [address] [place] [address] Care Team Providers Care Virology Teacher Name Role Phone Seamus Koehler Primary Care Provider [phone] Allergies No known active allergies Medications aspirin [...] is in the process of hiring new housemaid to help with care at home. -cont [...] and a large mask. They are unsure Abebe will be able to comply especially since [...] redirectable. He is following with urology in [place]. We discussed limited treatment options. We can [...] with Cymbalta and clonazepam. As far as [facility], he did not bring BP log with him. He has mild lightheadedness a few times a day. He is taking midodrine 2.5mg in the morning. Will add a dose at noon and advised him to continue monitoring. For constipation, he is going to see GI at [place]. He is having Miralax daily and even twice a day is not helping. He is working with hospitality team member as he lost 30 lbs. Discussed DBS [...] PD. He was recently on vacation in [place]. He was seen 1 month ago with [...] brake. I recommended a driving eval through [place] or other rehab center. 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 He is also participating in [employer] a few times weekly. In terms of [...] Trigger middle finger of right hand 01/07/2017 Family History Medical History Relation Name Comments Diabetes Sister Relation Name Status Comments Sister Social History Tobacco Use Types Packs/Day Years [...] 08/02/2022 4:15 PM EDT Plan of Treatment Health Maintenance Due Date Last Done Comments Kd 1955 Colon Cancer Screening 1955 Colonoscopy 1955 FOBT / Fit Test 1955 Hepatitis C Screening 1955 Sigmoidoscopy 1955 Pneumococcal Vaccine: 50+ Years (1 of 1 - PCV) 2006 Zoster Vaccines (1 of 2) 2006 COVID-19 Vaccine ( - season) 2023 12/11/2021, 02/11/2021, 07/02/2020, Additional history exists Influenza Vaccine (#1) 2023 , 12/11/2021, 02/17/2016, Additional history exists Alcohol/Substance Use Screening 02/15/2024 Depression Screening and Follow-Up 02/15/2024 Health Care Proxy Review 02/15/2024 Social Drivers of Health Annual Screening 02/15/2024 DTaP,Tdap,and Td Vaccines (2 - Td or Tdap) 04/30/2030 04/30/2020, 07/15/1999 RSV Vaccine (60+ years old and patients) (1 - 1-dose 75+ series) 11/24/2031 Hepatitis B Vaccines Aged Out No long er eligible based on patient's age to complete this topic Insurance MEDICARE [facility] Care Teams Virology Teacher Relationship Specialty Start Date End Date Seamus Koehler [address] [place] [id number] PCP - General Internal Medicine 12/24/16
--- OUTSIDE RECORDS SUMMARY | 2024-04-18 18:15 | XMS_ITS | Encounter Summary ---
Author Organization [facility] Address [address] [place] [address] Care Team Providers Care Surgical Territory Manager Name Role Phone Seamus Koehler Primary Care Provider [phone] Encounter Details Date Type Department Care Team (Late st Contact Info) Description 02/11/2022 Prometheanhart Message [facility] [address] [place] [address] Caitie Alvarez NP [address] [place] [address] Hospital visit Social History Tobacco Use Types Packs/Day Years [...] on filedocumented in this encounter Care Teams Surgical Territory Manager Relationship Specialty Start Date End Date Seamus Koehler [address] [place] [address] PCP - General Internal Medicine 12/24/16 documented as of this encounter
--- OUTSIDE RECORDS SUMMARY | 2024-04-18 18:15 | XMS_ITS | Encounter Summary ---
Author Organization [facility] Address [address] [place] [address] Care Team Providers Care Cab Worker Name Role Phone Seamus Koehler Primary Care Provider [phone] Encounter Details Date Type Department Care Team (Late st Contact Info) Description 02/03/2022 myChart Message [facility] [address] [place] [address] Caitie Alvarez NP [address] [place] [address] BP log Social History Tobacco Use Types Packs/Day Years [...] on filedocumented in this encounter Care Teams Cab Worker Relationship Specialty Start Date End Date Seamus Koehler [address] [place] [address] PCP - General Internal Medicine 12/24/16 documented as of this encounter
--- OUTSIDE RECORDS SUMMARY | 2024-04-18 18:15 | XMS_ITS | Data Portability ---
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 He lives in an assisted living facility. Patient reports gradual hearing loss over the last couple years. Exam demonstrates right medial external auditory canal with exostoses anteriorly. Left EAC floor with dry otorrhagia. TMs are intact and well-aerated. Audiogram showed significantly worse SNHL in right ear compared to prior testing in 2021. Provided copy of hearing test to patient, and recommend hearing aid adjustment with his nanotechnologist. Patient's is interested in cochlear implantation consult with Dr. Aguiar and I will defer imaging until then. Advised against Qtip use and cleaning the ears with instruments at home. [email or web address] Not available 03/14/2024 17:44:42 Plan of Treatment Reminders Order Date Submit Date Provider Last Modified By Organization Details Last Modified Time Details Appointments Otology Referral 30 2024 01:00P Reddy AGUIAR MD Not available Not available Not available Lab None recorded. Referral None recorded. Procedures None recorded. Surgeries None recorded. Imaging None recorded. Medication Orders None recorded. Patient TargetsNo targets recorded. Patient InstructionsNo instructions recorded. Reason for Referral None Reported. Results Created Date Observation Date Name Description Value Unit Range Abnormal Flag Note LastModifiedBy Organization Detail LastModifiedTime 03/15/19 25 audio gram No observ ation record ed. BARCODE Not Available 2024 11:40:57 Result Notes None recorded. Problems Name Problem SNOMED Code Status Onset Date Resolution Date Notes Provider Name and Address Organization Details Recorded Time Otorrhea 53849889 Active 2014 Otorrhea; Note: Date Diagnosed : 02/28/2014 1:24 PM (388.60) Not Available [facility] 4 02:15:42 Impacted cerumen in right ear 14114294278 81623 Active 2021 Impacted cerumen, right ear; Note: Date Diagnosed : 10/20/2021 3:05 PM (H61.21) Not Available [facility] 4 02:15:18 Bilateral exostosis of external ear canals 03048063664 72062 Active 2015 Exostosis of external canal, bilateral ; Note: Date Diagnosed : 10/21/2015 11:27 AM (H61.813) Not Available [facility] 4 02:15:12 Sensorine ural hearing loss of bilateral ears 028711633 Active 2015 Sensorine ural hearing loss, bilateral ; Note: Date Diagnosed : 10/21/2015 11:49 AM (H90.3) Not Available [facility] 4 02:15:29 Dysphonia 58376603 Active 2021 Unspecifi ed voice and resonance disorder; Note: Date Diagnosed : 10/20/2021 3:06 PM (R49.9) Not Available [facility] 4 02:15:47 Finding of resonance of voice 080959124 Active 2021 Unspecifi ed voice and resonance disorder; Note: Date Diagnosed : 10/20/2021 3:06 PM (R49.9) Not Available [facility] 4 02:15:47 Problem Notes None recorded. Procedures Surgical History Date Name Laterality Status Provider Name and Address Organization Details Recorded Time 5 [employer] Bone Audio (53734) completed Catina Bergeron [place] - [facility] 03/14/2024 15:28:51 5 SRT & Speech Recognition (72509) completed Catina Bergeron [place] - [facility] 03/14/2024 15:29:00 Imaging Results Imaging Date Name Status LastModified by Organiz ation Details LastModified Time 03/15/2024 audiogram completed BARCODE Information no t available 03/15/2024 11:40:57 Procedure Notes None recorded. Medical Equipment None Reported. Medications Name Sig Start Date Stop Date Status Note LastModified by Organization Details LastModified Time quetiapine 25 mg tablet active Not Available Not Available Not Available carbidopa ER 25 mg-levodopa 100 mg tablet,exte nded release active Not Available Not Available Not Available clonazepam 0.5 mg tablet active Medication ID: [id number] Mele nd Name: clonazepam Send Method: E-Prescrib ed Subs Allowed: subs OK Special Instructio n: TAKE ONE TABLET BY MOUTH AT BEDTIME Ca dicationGe nericName: clonazepam Not Available Not Available Not Available ofloxacin 0.3 % ear drops 5 drop into left ear 2014 active Medication ID: [id number] Dura tion Value: 5 Prescribe d By Name: Michi Reddy M.D. Brand Name: ofloxacin Send Method: E-Prescrib ed Subs Allowed: subs OK Medicat ionGeneric Name: ofloxacin Not Available Not Available Not Available Viagra 25 mg tablet 2014 active Medication ID: [id number] Bran d Name: Viagra Sen d Method: E-Prescrib ed Subs Allowed: subs OK Medicat ionGeneric Name: Viagra Not Available Not Available Not Available gabapentin 300 mg capsule active Not Available Not Available Not Available midodrine 2.5 mg tablet active Medication ID: [id number] Mele dave Name: midodrine Send Method: E-Prescrib ed Subs Allowed: subs OK Special Instructio n: TAKE 1 TABLET BY MOUTH AT 8AM AND 1 TABLET BY MOUTH AT 12PM. Medi cationGene ricName: midodrine Not Available Not Available Not Available metoprolol succinate ER 25 mg tablet,exte nded release 24 hr active Medication ID: [id number] Mele tx Name: metoprolol succinate Send Method: E-Prescrib ed Subs Allowed: subs OK Special Instructio n: TAKE ONE TABLET BY MOUTH EVERY DAY Medica tionGeneri cName: metoprolol succinate Not Available Not Available Not Available levofloxaci n 750 mg tablet TAKE ONE TABLET BY MOUTH EVERY DAY FOR 7 DAYS active Not Available Not Available No t Available carbidopa 25 mg-levodopa 100 mg tablet active Not Available Not Available Not Available fludrocorti sone 0.1 mg tablet active Not Available Not Available Not Available oxycodone 5 mg tablet TAKE 1 TABLET BY MOUTH EVERY 6 HOURS NEEDED FOR PAIN active Not Available Not Available No t Available TobraDex 0.3 %-0.1 % eye drops,suspe nsion 2014 [place]: [id number] Dura tion Value: 14 Prescribe d By Name: Isabel Whalen PA-C Brand Name: TobraDex S end Method: E-Prescrib ed Subs Allowed: subs OK Special Instructio n: 4 drops left ear bid X 14 dyas Medic ationGener icName: TobraDex Not Available Not Available Not Available midodrine 10 mg tablet active Not Available Not Available Not Available escitalopra m 20 mg tablet active Not Available Not Available Not Available duloxetine 30 mg capsule,del ayed release active Medication ID: [id number] Bra nd Name: duloxetine Send Method: E-Prescrib ed Subs Allowed: subs OK Special Instructio n: TAKE ONE CAPSULE BY MOUTH EVERY DAY Medica tionGeneri cName: duloxetine Not Available Not Available Not Available rivastigmin e 9.5 mg/24 hour transdermal patch active Not Available Not Available Not Available Ongentys 25 mg capsule active Medication ID: [id number] Bra nd Name: Ongentys S end Method: E-Prescrib ed Subs Allowed: subs OK Special Instructio n: TAKE ONE CAPSULE BY MOUTH AT BEDTIME Me dicationGe nericName: Ongentys Not Available Not Available Not Available Vitals Date Recorded Body height Body mass index (BMI) Body weight Provider Name and Address Organization Details Last Updated DateTime 03/14/2024 180.34 cm 18.8 kg/m2 60987.97 g Sheron Samayoa [place] - [facility] 03/14/2024 15:51:54 Social History None recorded. Functional Status None recorded. Mental Status None recorded. Family History Nothing Reported. Medical History No medical history recorded. Past Encounters Encounter ID Performer Location Encounter Start Date Encounter Closed Date Diagnosis/Indication Diagnosis SNOMED-CT Code Diagnosis ICD10 Code Diagnosis Note [id number] MICHI REDDY MD [facility] [address] [address] 03/14/2024 14:19:03 03/14/2024 16:03:55 Sensorineural hearing loss of bilateral ears 578489563 H90.3 Right ear:Normal sloping to profound sensorineu ral hearing loss with poor word recognitio n.Left ear:Normal sloping to severe sensorineu ral hearing loss with good word recognitio n. [id number] Aquiles [facility]VA [facility] [address] [address] 03/14/2024 15:28:12 03/15/2024 07:18:43 Sensorineural hearing loss of bilateral ears 637457986 H90.3 Audiologic al evaluation results: Right ear: {{Normal* Normal through 2 kHz Mild M oderate Mo derately-s evere Yin re Profoun d}} {{hearing hearing. s loping to a mild slopi ng to a moderate s loping to moderately severe slo ping to severe slo ping to profound* flat high frequency low frequency mid frequency cookie bite jones curve}} {{with sen sorineural hearing loss with* cond uctive hearing loss with mixed hearing loss with}} {{excellen t good manoj r poor* no measurable }} word recognitio n. Left ear: {{Normal* Normal through 2 kHz Mild M oderate Mo derately-s evere Yin re Profoun d}} {{hearing hearing. s loping to a mild slopi ng to a moderate s loping to moderately severe slo ping to severe* sl oping to profound f lat high frequency low frequency mid frequency cookie bite jones curve}} {{with sen sorineural hearing loss with* cond uctive hearing loss with mixed hearing loss with}} {{excellen t good* fa ir poor no measurable }} word recognitio n. Health Concerns Section Related Observation LastModified by Organization Detai ls LastModified Time None Recorded Concern Status LastModified by Organization Details LastModified Time None Recorded Advance Directives Directive None Recorded Payers Encounter Date Sequence Insurance Name Policy Number Policy Garcia Covered Member ID Garcia Member ID Guarantor Name 03/14/2024 1 [place] [employer] Nasir Mcdonald [id number] Nasir Mcdonald 03/14/2024 2 [facility] [id number] Nasir Mcdonald [id number] Nasir Mcdonald 03/14/2024 1 [place] [employer] [employer] Nasir Mcdonald [id number] Nasir Mcdonald 03/14/2024 2 [facility] [id number] Nasir Mcdonald [id number] Nasir Mcdonald Notes Date Note Type Note Provider Name and Address Organization Details Recorded Time 03/14/2024 text/html 68yo male with S NHL with bilateral amplification presents with for evaluation of the ears. He lives in an assisted living facility. bought an otoscope and sees a bump in the ear. He reports gradual hearing loss over the last couple years. Denies otalgia, otorrhea, or otorrhagia. MICHI REDDY MD [address] [place] [address], [phone], [facility] - [facility] 03/15/2024 14:11:44
--- OUTSIDE RECORDS SUMMARY | 2024-04-18 18:15 | XMS_ITS | Encounter Summary ---
Author Organization [facility] Address [address] [place] [address] Care Team Providers Care Day Habilitation Specialist Name Role Phone Seamus Koehler Primary Care Provider [phone] Encounter Details Date Type Department Care Team (Late st Contact Info) Description 06/10/2021 myChart Message [facility] [address] [place] [address] Caitie Alvarez NP [address] [place] [address] Out of hospital questions with timing on [...] on filedocumented in this encounter Care Teams Day Habilitation Specialist Relationship Specialty Start Date End Date Seamus Koehler [address] [place] [address] PCP - General Internal Medicine 12/24/16 documented as of this encounter
--- OUTSIDE RECORDS SUMMARY | 2024-04-18 18:15 | XMS_ITS | Encounter Summary ---
Author Organization [facility] Address [address] [place] [address] Care Team Providers Care Sanding Machine Tender Automatic Name Role Phone Seamus Koehler Primary Care Provider [phone] Encounter Details Date Type Department Care Team (Late st Contact Info) Description 03/22/2022 myChart Message [facility] [address] [place] [address] Caitie Alvarez NP [address] [place] [address] Beronica Ontys 25 mg Social History Tobacco Use Types Packs/Day Years [...] on filedocumented in this encounter Care Teams Sanding Machine Tender Automatic Relationship Specialty Start Date End Date Seamus Koehler [address] [place] [address] PCP - General Internal Medicine 12/24/16 documented as of this encounter
--- OUTSIDE RECORDS SUMMARY | 2024-04-18 18:15 | XMS_ITS | Encounter Summary ---
Author Organization [facility] Address [address] [place] [address] Care Team Providers Care Cake Press Operator Helper Name Role Phone Seamus Koehler Primary Care Provider [phone] Encounter Details Date Type Department Care Team (Late st Contact Info) Description 02/12/2021 myChart Message [facility] [address] [place] [address] Caitie Alvarez NP [address] [place] [address] [facility] Social History Tobacco Use [...] on filedocumented in this encounter Care Teams Cake Press Operator Helper Relationship Specialty Start Date End Date Seamus Koehler [address] [place] [address] PCP - General Internal Medicine 12/24/16 documented as of this encounter
--- OUTSIDE RECORDS SUMMARY | 2024-04-18 18:15 | XMS_ITS | Encounter Summary ---
Author Organization [facility] Address [address] [place] [address] Care Team Providers Care Timber Rider Name Role Phone Seamus Koehler Primary Care Provider [phone] Encounter Details Date Type Department Care Team (Late st Contact Info) Description 03/04/2022 myChart Message [facility] [address] [place] [address] Caitie Alvarez NP [address] [place] [address] New dosing schedule for carbidopa levodopa Social History Tobacco Use Types Packs/Day Years [...] on filedocumented in this encounter Care Teams Timber Rider Relationship Specialty Start Date End Date Seamus Koehler [address] [place] [address] PCP - General Internal Medicine 12/24/16 documented as of this encounter
--- OUTSIDE RECORDS SUMMARY | 2024-04-18 18:15 | XMS_ITS | Encounter Summary ---
Author Organization [facility] Address [address] [place] [address] Care Team Providers Care Street Roller Engineer Name Role Phone Meka Horan FOREIGN EXCHANGE CLERK Primary Care Provider David rees Encounter Details Date Type Department Care Team (Late st Contact Info) Description 04/06/2024 1:45 PM EST Office Visit [facility] [address] [facility] [address] [place] [id number] Pepe Pandey, DPReddy [address] [place] [address] Pressure injury of right ankle, stage 2 [...] Sign Reading Time Taken Comments Blood Pressure 98/60 04/06/2024 2:01 PM EST Pulse 56 04/06/2024 2:01 PM EST Temperature 36.7 ??C (98 ??F) 04/06/2024 2:01 PM EST Respiratory Rate 16 04/06/2024 2:01 PM EST Oxygen Saturation 99% 04/06/2024 2:01 PM EST Inhaled Oxygen Concentration - - Weight - - Height - - Body Mass Index - - documented in this encounter Progress Notes * Elvis Nunez LPN - 04/06/2024 1:45 PM EST PHYSICIAN ORDERS and applied at clinic Go to ER if present with fever, shaking, chills, increased redness, or excess drainage. If you have any questions or concerns, please contact the wound center at Dept: [phone] Home Health: Home Health: [facility] Fax orders to Home Health Go to ER if present with fever, shaking,chills, increased redness, or excess drainage. If you have any questions or concerns please contact the wound center at Dept: [phone] Hand Hygiene: (W)basilio hands before and after wound care. Call Wound Center at Dept: [phone] you have signs and symptoms of infection such as fever, chills, unusual or increased drainage, increasing odor, or unusual redness. Anesthetic: Topical 5% Lidocaine Ointment to wound bed prior to debridement Home Health Other: - [facility] [phone] fax: [phone] PT/OT: Please evaluate for ROHO cushion, overlay [...] Secured With - foam dressing * Pepe Pandey DPM - 04/06/2024 1:45 PM EST Images from the original note were not included. Office Visit Visit Date: 04/06/2024 Patient Name: Nasir Mcdonald Date of : 1955 PCP: Meka Horan NP HPI: HPI 68-year-old male seen for ongoing management of lateral right ankle wound. No new [...] of Systems Vital Signs: Visit Vitals BP 98/60 Pulse 56 Temp 36.7 ??C (98 ??F) Resp 16 SpO2 99% Smoking Status Former PHYSICAL EXAM Physical Exam No nonviable tissue in wound. No evidence of acute infection. WOUND ASSESSMENT If photograph of wound not visible on this note, please check under Media tab. Wound Pressure Injury 12/22/23 Ankle Distal;Right (Active) Wound Image 12/22/23 1131 Wound Bed Tissue Assessment [place] 04/06/24 1400 Kallie-Wound Assessment [place] 04/06/24 1400 Shape Irregular 04/06/24 1400 Wound Length (cm) 1.1 cm 04/06/24 1400 Wound Width (cm) 0.6 cm 04/06/24 1400 Wound Surface Area (cm^2) 0.66 cm^2 04/06/24 1400 Wound Depth (cm) 0.1 cm 04/06/24 1400 Wound Volume (cm^3) 0.066 cm^3 04/06/24 1400 Wound Healing % 78 04/06/24 1400 Drainage Description Serous 04/06/24 1400 Drainage Amount Moderate 04/06/24 1400 Treatments Cleansed;Site care 04/06/24 1400 Dressing Changed Changed 04/06/24 1400 Dressing Status Removed;Old drainage 04/06/24 1400 Wound Bed Granulation (%) 100 % 04/06/24 1400 Edges Well-defined edges 04/06/24 1400 Non-staged Wound Description Full thickness 04/06/24 1400 Pertinent Labs: No results found for: [...] please contact the wound center at Dept: [phone] Home Health: Home Health: [facility] Fax orders to Home Health Go to ER if present with fever, shaking,chills, increased redness, or excess drainage. If you have any questions or concerns please contact the wound center at Dept: [phone] Hand Hygiene: (W)basilio hands before and after wound care. Call Wound Center at Dept: [phone] you have signs and symptoms of infection such as fever, chills, unusual or increased drainage, increasing odor, or unusual redness. Anesthetic: Topical 5% Lidocaine Ointment to wound bed prior to debridement Home Health Other: - [facility] [phone] fax: [phone] PT/OT: Please evaluate for ROHO cushion, overlay [...] - adaptic Secured With - foam dressing Goals for the wound(s): Expected frequency of encounters: Anticipated duration of treatment: Potential to heal: Plan: Same POC. Return in 1 week. All questions were [...] Follow up in about 2 weeks (around 04/20/2024), or if symptoms worsen or fail to improve, for Next scheduled follow-up. 04/06/2024 2:35 PM EST Pepe Pandey DPM documented in this encounter Plan of Treatment Upcoming Encounters Date Type Department Care Team (Late st Contact Info) Description 04/30/2024 1:45 PM EDT [facility] Visit [facility] [address] [facility] [address] [place] [id number] Pepe Pandey DPM [address] [place] [id number] documented as of this encounter Visit Diagnoses Diagnosis Pressure injury of right ankle, stage 2 (CMS/HCC)- Primary documented in this encounter Care Teams Street Roller Engineer Relationship Specialty Start Date End Date Meka Horan NP PCP - General 07/07/23 documented as of this encounter
--- OUTSIDE RECORDS SUMMARY | 2024-04-18 18:15 | XMS_ITS ---
Author Name [facility] Organization Unknown History of Medication Use Medication Directions Dispensed Refills Start Date End Date Stat mupirocin (BACTROBAN) 2 % ointment Apply topically 3 (three) times a day. 10/28/2023 active No known medications No known medications active fludrocortisone (FLORINEF) tablet 0.1 mg 2 (two) times a day. 10/03/2023 active aspirin enteric coated (ECOTRIN LOW STRENGTH) 81 MG EC tablet Take 1 tablet (81 mg total) by mouth. active aspirin 81 MG EC tablet Take 1 tablet (81 mg total) by mouth daily. active Lactobacillus TABS Take 2 tablets by mouth daily. 10/27/2023 active gabapentin (NEURONTIN) 100 MG capsule Take 3 capsules (300 mg total) by mouth every evening. To take at 8pm 01/11/2023 active escitalopram (LEXAPRO) tablet 10 mg Take 2 tablets (20 mg total) by mouth daily. 07/28/2023 active carbidopa-levodopa (SINEMET) 25-100 MG per tablet Take 1.5 tabs at 7A, 9:30A, 1 tab 12PM, 1.5 tabs at 2:30pm, 1 tab at 5PM and 1 tab at 7:30PM and 1/2 tab 2-3x/day as needed 06/09/2022 active cyanocobalamin (VITAMIN B-12) 100 mcg tablet Take 1 tablet (100 mcg total) by mouth 1 (one) time each day. 11/05/2023 active Carbidopa-Levodopa ER (SINEMET CR) 25-100 MG per tablet every night at bedtime. 06/28/2023 active midodrine (PROAMATINE) 2.5 MG tablet Take 4 tablets (10 mg total) by mouth 3 (three) times a day. 06/07/2022 active gabapentin (NEURONTIN) 100 MG capsule Take 3 capsules (300 mg total) by mouth every night at bedtime. 01/11/2023 active clonazePAM (KlonoPIN) 0.5 MG tablet To take 0.5mg in the morning and 0.75mg in the evening 12/06/2022 active Problems Problem Status Onset Date Problem Type Date of Resolution Source Impaired gait active 2017-01-07 ProblemAct [facility] DNR (do not resuscitate) active 2023-07-07 ProblemAct [facility] Slow transit constipation active 2021-05-21 ProblemAct [facility] Pressure injury of right ankle, stage 2 active 2023-12-22 ProblemAct [facility] Pressure injury of left hip, stage 2 active 2023-12-22 ProblemAct [facility] Rash and other nonspecific skin eruption active 2023-07-28 ProblemAct [facility] ANITA on CPAP active 2017-01-07 ProblemAct [facility] Enlarged prostate active 2023-07-07 ProblemAct [facility] Recurrent UTI active 2023-07-07 ProblemAct [facility] Osteoarthritis active 2023-08-25 ProblemAct [facility] Risk for falls active 2023-07-07 ProblemAct [facility] Dyslipidemia active 2023-07-07 ProblemAct [facility] REM sleep behavior disorder active 2019-04-05 ProblemAct [facility] Motor fluctuations related to medication use in Parkinson's disease active 2021-01-13 ProblemAct [facility] Anxiety active 2023-07-07 ProblemAct [facility] Atrial fibrillation active 2023-07-07 ProblemAct [facility] PD (Parkinson's disease) active 2017-01-07 ProblemAct [facility] Multiple wounds active 2023-09-[address] [facility] Neurogenic orthostatic hypotension active 2021-02-03 ProblemAct [facility] Incontinence of urine active 2023-07-07 ProblemAct [facility] Difficulty sleeping active 2023-07-07 ProblemAct [facility] Cognitive impairment active 2022-09-30 ProblemAct [facility] Tortuous aorta active 2023-07-07 ProblemAct [facility] Trigger middle finger of right hand active 2017-01-07 ProblemAct [facility] Hallucinations active 2022-09-30 ProblemAct [facility] Protein calorie malnutrition active 2023-07-07 ProblemAct [facility] Shortness of breath active 2023-07-07 ProblemAct [facility] Elevated PSA active 2023-07-07 ProblemAct [facility] Knee pain active 2023-07-07 ProblemAct [facility] Open wound of left hip active 2023-08-04 ProblemAct [facility] Sensorineural hearing loss (SNHL) of both ears active 2017-01-07 ProblemAct [facility] Osteoarthritis of right knee active 2017-01-07 ProblemAct [facility] Impacted cerumen of right ear active EncounterDiagnosisAct [facility] Immunizations Vaccine Date Source Lot Number Status Influenza Trivalent (Fluzone /Afluria) 5.0mL Multi-dose Vial 02/17/2016 [facility] [id number] completed Covid-19, Unspecified formulation 07/02/2020 [facility] 03 [id number] completed Td (Adult), Unspecified formulation 07/15/1999 [facility] UNK completed DTP 04/16/2009 [facility] [id number] completed Tdap 04/30/2020 [facility] [id number] completed Covid-19, Unspecified formulation 02/11/2021 [facility] 02 [id number] completed Influenza Trivalent (Fluzone /Afluria) 5.0mL Multi-dose Vial 01/24/2015 [facility] [id number] completed Covid-19, Unspecified formulation 12/11/2021 [facility] 05 [id number] completed Covid-19, Unspecified formulation 05/28/2020 [facility] 03 [id number] completed Influenza Trivalent (Fluzone /Afluria) 5.0mL Multi-dose Vial 12/11/2021 [facility] [id number] completed
--- OUTSIDE RECORDS SUMMARY | 2024-04-18 18:15 | XMS_ITS | Encounter Summary ---
Author Organization [facility] Address [address] [place] [address] Care Team Providers Care Firmware Test Engineer Name Role Phone Seamus Koehler Primary Care Provider [phone] Encounter Details Date Type Department Care Team (Late st Contact Info) Description 02/16/2021 myChart Message [facility] [address] [place] [address] Caitie Alvarez NP [address] [place] [address] Feb. Appointment Social History Tobacco Use Types Packs/Day Years [...] on filedocumented in this encounter Care Teams Firmware Test Engineer Relationship Specialty Start Date End Date Seamus Koehler [address] [place] [address] PCP - General Internal Medicine 12/24/16 documented as of this encounter
--- OUTSIDE RECORDS SUMMARY | 2024-04-18 18:15 | XMS_ITS | Clinical Summary ---
Author Organization [facility] Address [address] [place] [address] Care Team Providers Care Canvas Worker Apprentice Name Role Phone Laura Brennan NP Primary Care Provider [phone] Allergies No known active allergies Medications Medication Sig Dispensed Refills Start Date End Date Status omega-3 fatty acids (FISH OIL) 1000 MG Cap capsule Take by mouth. 09/08/2022 Active carbidopa-levodopa (SINEMET) 25-100 MG per tablet Take 1.5 tabs at 7A, 9:30A, 1 tab 12PM, 1.5 tabs at 2:30pm, 1 tab at 5PM and 1 tab at 7:30PM and 1/2 tab 2-3x/day as needed 06/09/2022 Active carbidopa-levodopa (SINEMET CR) 50-200 MG per tablet Take 1 tablet at bedtime and one overnight as needed 06/07/2022 Active fludrocortisone (FLORINEF) 0.1 MG tablet Take 1 tablet (0.1 mg total) by mouth. 09/08/2022 Active aspirin enteric coated (ECOTRIN LOW STRENGTH) 81 MG EC tablet Take 1 tablet (81 mg total) by mouth. Active DULoxetine (CYMBALTA) 60 MG capsule Take 1 capsule (60 mg total) by mouth. 09/29/2022 Active traZODone (DESYREL) 50 MG tablet Take 0.5-1 tablets (25-50 mg total) by mouth nightly. 11/09/2022 Active linaclotide (Linzess) 145 MCG Cap capsule 1 capsule (145 mcg total). 02/10/2022 Active melatonin 3 MG Tab tablet Take 1 tablet (3 mg total) by mouth. 09/08/2022 Active metoPROLOL SUCCINATE (TOPROL-XL) 25 MG 24 hr tablet Take 1 tablet (25 mg total) by mouth. Active Ongentys 25 MG Cap Take 1 capsule by mouth every evening. 11/20/2022 Active rivastigmine (EXELON) 4.6 MG/24HR Place 1 patch on the skin. 09/29/2022 Active clonazePAM (KlonoPIN) 0.5 MG tabletIndications:Anx iety,Focal dystonia,Parkinson's disease with dyskinesia and fluctuating manifestations (HCC) To take 0.5mg in the morning and 0.75mg in the evening 90 tablet 12/06/2022 Active gabapentin (NEURONTIN) 100 MG capsuleIndications:Re stless leg syndrome Take 3 capsules (300 mg total) by mouth every evening. To take at 8pm 90 capsule 3 01/11/2023 Active Social History Tobacco Use Types Packs/Day Years Used Date Smoking Tobacco: Never Assessed Sex and Gender Information Value Date Recorded Sex Assigned at Male 12/06/2022 10:17 AM EDT Gender Identity Male 11/09/2022 4:54 PM EDT Sexual Orientation Choose not to disclose 2022 10:17 AM EDT Last Filed Vital Signs Vital Sign Reading Time Taken Comments Blood Pressure 112/60 12/03/2023 2:52 PM EDT Pulse 43 12/03/2023 2:52 PM EDT Temperature 36.7 ??C (98.1 ??F) 12/03/2023 2:52 PM ED T Respiratory Rate 18 12/03/2023 2:52 PM EDT Oxygen Saturation 98% 12/03/2023 2:52 PM EDT Inhaled Oxygen Concentration - - Weight - - Height - - Body Mass Index - - Plan of Treatment Health Maintenance Due Date Last Done Comments Hepatitis C Virus Screening 1955 DTaP/Tdap/Td Vaccines (1 - Tdap) 11/24/1975 Colonoscopy 2001 Pneumococcal Vaccines 50+ (1 of 1 - PCV) 2006 Zoster (Shingles) Vaccine (1 of 2) 2006 Influenza Vaccine 09/15/2023 12/11/2021, , 01/24/2015 COVID-19 Vaccine ( season) 2023 12/11/2021, 02/11/2021, 07/02/2020, Additional history exists RSV Vaccine 60 years and older and Patients (1 - 1-dose 75+ series) 11/24/2031 Hepatitis B Vaccines Aged Out No long er eligible based on patient's age to complete this topic Care Teams Canvas Worker Apprentice Relationship Specialty Start Date End Date Laura Brennan NP [address] [place] [address] [address] [place], [place] PCP - General General Medicine 11/10/22
--- OUTSIDE RECORDS SUMMARY | 2024-04-18 18:16 | XMS_ITS | Patient Health Record ---
Author Organization [facility] Address [address] [address] Care Team Providers Care Nut Blanker Operator Name Role Phone Seamus Koehler Primary Care Provider Joshua Rock Unavailable [phone] Caitie Alvarez Unavailable Unavailable Allergies No Known Allergies Reason For Referral No Information Medications Medication SIG (Take, Route, Frequency, Duration) Notes Start Date End Date Status DULoxetine HCl 30 MG TAKE ONE CAPSULE BY MOUTH EVERY DAY Oral for 30 Active Metoprolol Succinate ER 25 MG TAKE ONE TABLET BY MOUTH EVERY DAY Oral for 30 Active Linzess 145 MCG TAKE ONE CAPSULE BY MOUTH EVERY DAY Oral for 60 Active Carbidopa-Levodopa ER 50-200 MG TAKE ONE TABLET BY MOUTH EVERY DAY AT 10PM Oral for 30 Active Carbidopa-Levodopa 25-100 MG TAKE 2.5 TABLETS BY MOUTH AT 7AM, 12PM, 5PM. AND 10PM Oral for 90 Active clonazePAM 0.5 MG TAKE ONE TABLET BY M OUTH AT BEDTIME Oral for 30 Active Aspirin 81 81 MG 1 tablet Orally Once a day for 30 day(s) Active Ongentys 25 MG TAKE ONE CAPSULE BY MOUTH EVERY EVENING Oral for 30 Active Midodrine HCl 2.5 MG TAKE 1 TABLET BY MO UTH AT 8AM AND 1 TABLET BY MOUTH AT 12PM. Oral for 30 Active Social History Tobacco Use: Social History Observation Description Date Details (start date - stop date) Former Smoker NA - NA Tobacco Use/Smoking Question Answer Notes Are you a former smoker How long has it been since you last smoked? > 10 years Alcohol Screen (Audit-C) Question Answer Notes Did you have a drink containing alcohol in the p ast year? No Points 0 Interpretation Negative Problems Problem Type SNOMED Code ICD Code Onset Dates Problem Status W/U Status Risk Notes Problem Parkinson's disease (68419720) Parkinson's disease (G20) Active confirmed Problem Anxiety (11953007) Anxiety (F41.9) Active confirmed Problem Obstructive sleep apnea syndrome (97200236) ANITA (obstructive sleep apnea) (G47.33) Active confirmed Problem Rapid eye movement sleep behavior disorder (407316308) REM behavioral disorder (G47.52) Active confirmed Problem Obstructive sleep apnea syndrome (68452767) ANITA (obstructive sleep apnea) (G47.33) Active confirmed Plan Of Treatment No Information Insurance Providers Payer Name Payer Address Payer Phone Subscriber Number Group Number Insured Name Patient Relationship to Insured Coverage Start Date Coverage End Date MEDICARE [address] [place] [id number] Abebe Mcdonald Self - patient is the insured [facility] [address] [place] [id number] Abebe Mcdonald Self - patient is the insured Medical (General) History Medical History History ICD Code Parkinson's disease G20 Anxiety F41.9 ANITA (obstructive sleep apnea) G47.33 REM behavioral disorder G47.52 Surgical History Surgery Date(Month/Year) Rt knee replacement Rt hand surgery
--- OUTSIDE RECORDS SUMMARY | 2024-04-18 18:16 | XMS_ITS | Encounter Summary ---
Author Organization [facility] Address [address] [place] [address] Care Team Providers Care Analytics Manager Name Role Phone Seamus Koehler Primary Care Provider [phone] Reason for Visit * Reason Onset Date Comments er visit 01/19/2021 Encounter Details Date Type Department Care Team (Late st Contact Info) Description 01/19/2021 Telephone [facility] Central Scheduling Department [address] [place] [address] Telephone Intake, Staff er visit Social History Tobacco Use Types Packs/Day [...] encounter Miscellaneous Notes * Telephone Encounter - Hue Godfrey RN - 01/19/2021 9:10 AM EST Pt 's transferred from helpdesk analyst. She had told the helpdesk analyst she wasn't hanging up until shehad an appt with Caitie Alvarez. * Telephone Encounter - Alesha Sherry - 01/19/2021 8:54 AM EST Neurology pt's Linda thomas to schedule appt with Caitie Alvarez to discuss latest symptoms and hopefully get a telehealth/phone/appt Per DT, called nurse triage Bharti Nurse had already spoken with and was sending note I called Meredith at helpdesk analyst ext [phone],wam transferred documented in this encounter Plan of Treatment Not on file documented as of this encounter Visit Diagnoses Not on filedocumented in this encounter Care Teams Analytics Manager Relationship Specialty Start Date End Date Seamus Koehler [facility] [place] [address] PCP - General Internal Medicine 12/24/16 documented as of this encounter
--- OUTSIDE RECORDS SUMMARY | 2024-04-18 18:16 | XMS_ITS | Encounter Summary ---
Author Organization [facility] Address [address] [place] [address] Care Team Providers Care Oil Speculator Name Role Phone Seamus Koehler Primary Care Provider [phone] Encounter Details Date Type Department Care Team (Late st Contact Info) Description 12/09/2021 myChart Message [facility] [address] [place] [address] Caitie Alvarez NP [address] [place] [address] Ogentys 25 MG capsule Social History Tobacco Use Types Packs/Day Years [...] filedocumented in this encounter Care Teams Oil Speculator Relationship Specialty Start Date End Date Seamus Koehler [address] [place] [address] PCP - General Internal Medicine 12/24/16 documented as of this encounter
--- OUTSIDE RECORDS SUMMARY | 2024-04-18 18:16 | XMS_ITS | Encounter Summary ---
Author Organization [facility] Address [address] [place] [address] Care Team Providers Care Hse Specialist Name Role Phone Seamus Koehler Primary Care Provider [phone] Encounter Details Date Type Department Care Team (Late st Contact Info) Description 05/25/2021 myChart Message [facility] Neurology Clinic [address] [place] [address] Caitie Alvarez NP [address] [place] [address] Back on Rytary Social History Tobacco Use Types Packs/Day Years [...] on filedocumented in this encounter Care Teams Hse Specialist Relationship Specialty Start Date End Date Seamus Koehler [address] [place] [address] PCP - General Internal Medicine 12/24/16 documented as of this encounter
--- OUTSIDE RECORDS SUMMARY | 2024-04-18 18:16 | XMS_ITS | Encounter Summary ---
Author Organization [facility] Address [address] [place] [address] Care Team Providers Care Machine Package Sealer Name Role Phone Seamus Koehler Primary Care Provider [phone] Encounter Details Date Type Department Care Team (Late st Contact Info) Description 01/26/2021 myChart Message [facility] [address] [place] [address] Caitie Alvarez NP [address] [place] [address] 1st dose of Rytary tomorrow 5am Social History Tobacco Use Types Packs/Day Years [...] on filedocumented in this encounter Care Teams Machine Package Sealer Relationship Specialty Start Date End Date Seamus Koehler [address] [place] [employer] [place] [address] PCP - General Internal Medicine 12/24/16 documented as of this encounter
--- OUTSIDE RECORDS SUMMARY | 2024-04-18 18:16 | XMS_ITS | Encounter Summary ---
Author Organization [facility] Address [address] [place] [address] Care Team Providers Care Power Saw Operator Name Role Phone Seamus Koehler Primary Care Provider [phone] Encounter Details Date Type Department Care Team (Late st Contact Info) Description 06/06/2021 myChart Message [facility] [address] [place] [address] Caitie Alvarez NP [address] [place] [address] ER Social History Tobacco Use Types Packs/Day Years [...] on filedocumented in this encounter Care Teams Power Saw Operator Relationship Specialty Start Date End Date Seamus Koehler [address] [employer] [place] [address] PCP - General Internal Medicine 12/24/16 documented as of this encounter
--- OUTSIDE RECORDS SUMMARY | 2024-04-18 18:16 | XMS_ITS | Encounter Summary ---
Author Organization [facility] Address [address] [place] [address] Care Team Providers Care Food Broker Name Role Phone Seamus Koehler Primary Care Provider [phone] Encounter Details Date Type Department Care Team (Late st Contact Info) Description 06/17/2021 myChart Message [facility] [address] [place] [address] Caitie Alvarez NP [address] [place] [address] Too much Midrodine?? Social History Tobacco Use Types Packs/Day Years [...] on filedocumented in this encounter Care Teams Food Broker Relationship Specialty Start Date End Date Seamus Koehler [address] [place] [address] PCP - General Internal Medicine 12/24/16 documented as of this encounter
--- OUTSIDE RECORDS SUMMARY | 2024-04-18 18:16 | XMS_ITS | Encounter Summary ---
Author Organization [facility] Address [address] [place] [address] Care Team Providers Care Drinking Water Technician Name Role Phone Seamus Koehler Primary Care Provider [phone] Encounter Details Date Type Department Care Team (Late st Contact Info) Description 06/22/2021 myChart Message [facility] [address] [place] [address] Caitie Alvarez NP [address] [place] [address] Review of medication Social History Tobacco Use Types Packs/Day Years [...] on filedocumented in this encounter Care Teams Drinking Water Technician Relationship Specialty Start Date End Date Seamus Koehler [address] [place] [address] PCP - General Internal Medicine 12/24/16 documented as of this encounter
--- OUTSIDE RECORDS SUMMARY | 2024-04-18 18:16 | XMS_ITS | Clinical Summary ---
Author Organization [facility] Address [address] [place] [address] Care Team Providers Care Design Chief Name Role Phone Meka Horan APRN Primary Care Provider Un available Allergies No known active allergies Medications Medication Sig Dispensed Refills Start Date End Date Status aspirin 81 MG EC tablet Take 1 tablet (81 mg total) by mouth daily. 0 Active carbidopa-levodopa (SINEMET) 25-100 MG per tablet Take 1.5 tablets by mouth 5 (five) times a day. 0 06/09/2022 Active gabapentin (NEURONTIN) 100 MG capsule Take 3 capsules (300 mg total) by mouth every night at bedtime. 0 01/11/2023 Active midodrine (PROAMATINE) 2.5 MG tablet Take 4 tablets (10 mg total) by mouth 3 (three) times a day. 0 06/07/2022 Active polyethylene glycol (MIRALAX) 17 g packet Take 17 g by mouth 3 (three) times a week. 14 each 0 07/06/2023 Active triamcinolone (KENALOG) 0.1 % cream Apply topically 2 (two) times a day as needed. 30 g 0 07/06/2023 Active melatonin 3 MG TABS tablet Take 1 tablet (3 mg total) by mouth every night at bedtime. 60 tablet 0 07/06/2023 Active QUEtiapine (SEROquel) 25 MG tablet Take 1 tablet (25 mg total) by mouth 2 (two) times a day. 60 tablet 3 07/06/2023 Active Carbidopa-Levodopa ER (SINEMET CR) 25-100 MG per tablet every night at bedtime. 0 06/28/2023 Active rivastigmine (EXELON) 9.5 MG/24HR patch Place 1 patch onto the skin daily. 0 Active escitalopram (LEXAPRO) tablet 10 mg Take 2 tablets (20 mg total) by mouth daily. 30 tablet 2 07/28/2023 07/27/2024 Active Lactobacillus TABS Take 2 tablets by mouth daily. 40 tablet 0 10/27/2023 Active fludrocortisone (FLORINEF) tablet 0.1 mg 2 (two) times a day. 0 10/03/2023 Active hydrocortisone 1 % cream Apply topically 2 (two) times a day. x14d 0 Active Mirabegron ER (MYRBETRIQ) 25 MG TB24 24 hr tablet Take by mouth daily. 0 Active thiamine mononitrate (VITAMIN B-1) 100 MG tablet Take 1 tablet (100 mg total) by mouth daily. 0 Active traZODone (DESYREL) 50 MG tablet Take 0.5 tablets (25 mg total) by mouth every 6 (six) hours as needed. 0 Active acetaminophen (TYLENOL) 325 MG tablet Take 2 tablets (650 mg total) by mouth every 6 (six) hours as needed. 0 Active bisacodyl (Stimulant Laxative) 5 MG EC tablet Take 2 tablets (10 mg total) by mouth every night at bedtime. 120 tablet 0 10/27/2023 Active Active Problems Problem Noted Date Diagnosed Date Multiple wounds 09/29/2023 Osteoarthritis 08/25/2023 Open wound of left hip 08/04/2023 Rash and other nonspecific skin eruption 024 Recurrent UTI 07/07/2023 Enlarged prostate 07/07/2023 Incontinence of urine 07/07/2023 Risk for falls 07/07/2023 DNR (do not resuscitate) 07/07/2023 Knee pain 07/07/2023 07/07/2023 Anxiety 07/07/2023 07/07/2023 Difficulty sleeping 07/07/2023 07/07/2023 Atrial fibrillation 07/07/2023 07/07/2023 Dyslipidemia 07/07/2023 07/07/2023 Elevated PSA 07/07/2023 07/07/2023 Shortness of breath 07/07/2023 07/07/2023 Tortuous aorta 07/07/2023 Overview: Per CXR 06/28/2023 Protein calorie malnutrition 07/07/2023 Cognitive impairment 09/30/2022 07/06/2023 Hallucinations 09/30/2022 07/06/2023 Slow transit constipation 05/21/20212023 Neurogenic orthostatic hypotension 02/03/2021 07/06/2023 Motor fluctuations related t o medication use in Parkinson's disease 01/13/2021 07/06/2023 REM sleep behavior disorder 04/05/201906/15 Impaired gait 01/07/2017 07/06/2023 Osteoarthritis of right knee 01/07/2017 PD (Parkinson's disease) 01/07/2017 024 Overview: [place] IPD , Dx in 2017. Motor [...] an underlying dementia at the present time. Last Assessment & Plan: Abebe presents for follow-up of iPD, likely [...] is in the process of hiring new brazing machine operator automatic to help with care at home. -cont [...] 12N -follow up scheduled with Caitie in Sept Sensorineural hearing loss (SNHL) of both ears 1 03/09/2016 07/06/2023 ANITA on CPAP 01/07/2017 07/06/2023 Trigger middle finger of right hand 01/07/2017 07/06/2023 Resolved Problems Problem Noted Date Diagnosed Date Resolved Date Hearing loss 07/07/2023 07/07/2023 Overweight 07/07/2023 07/07/2023 07/07/2023 Immunizations Name Administration Dates Next Due Covid-19, Unspecified formulation 2021,02/11/2021,07/02/2020,2020 DTP 04/16/2009 Influenza Trivalent (Fluzone /Afluria) 5.0mL Multi-dose Vial 12/11/2021,02/17/2016,01/24/2015 Td (Adult), Unspecified formulation 07/15/1999 Tdap 04/30/2020 Family History Medical History Relation Name Comments Thyroid cancer Brother Prostate cancer Father Alzheimer's disease Mother Diabetes Sister 1 Dementia Sister 2 Relation Name Status Comments Brother Alive Father Mother Sister 1 Alive Sister 2 Alive Social History Tobacco Use Types Packs/Day Years Used Date Smoking Tobacco: Former Cigarettes 2 Smokeless Tobacco: Never Tobacco Cessation:Counseling Given: Not Answered Alcohol Use Standard Drinks/Week Comments Not Currently 0 (1 standard drink = 0.6 oz pur e alcohol) Sex and Gender Information Value Date Recorded Sex Assigned at Male 12/01/2023 8:23 AM EDT Gender Identity Not on file Sexual Orientation Not on file Job Start Date Occupation Industry Not on file Not on file Not on file Last Filed Vital Signs Vital Sign Reading Time Taken Comments Blood Pressure 118/72 12/01/2023 5:16 PM EDT Pulse 77 12/01/2023 5:16 PM EDT Temperature 36.7 ??C (98 ??F) 12/01/2023 5:16 PM EDT Respiratory Rate 20 12/01/2023 5:16 PM EDT Oxygen Saturation 96% 12/01/2023 5:16 PM EDT Inhaled Oxygen Concentration - - Weight - - Height - - Body Mass Index - - Plan of Treatment Health Maintenance Due Date Last Done Comments Hepatitis C Screening 1955 Pneumococcal Vaccine (1 of 2 - PCV) 1962 Depression Screening 1968 Preventative Health Evaluation 1974 Shingrix-Zoster Vaccine (1 of 2) 11/24/1975 Colon Cancer Screening (Colonoscopy) 2001 Fall Risk Assessment 2021 COVID-19 Vaccine ( season) 2023 12/11/2021, 02/11/2021, 07/02/2020, Additional history exists Influenza Vaccine (#1) 2023 2, 02/17/2016, 01/24/2015 DTap / Tdap / Td (3 - Td or Tdap) 04/30/2030 04/30/2020, 04/16/2009, 07/15/1999 RSV Adult > 60+ Yrs or (1 - 1-dose 75+ series) 11/24/2031 Hepatitis B Vaccines Aged Out No long er eligible based on patient's age to complete this topic RSV Ped < 20 months Aged Out No longe r eligible based on patient's age to complete this topic Care Teams Design Chief Relationship Specialty Start Date End Date Meka Horan APRN PCP - General Family Medicine 07/07/23
--- OUTSIDE RECORDS SUMMARY | 2024-04-18 18:16 | XMS_ITS | Encounter Summary ---
Author Organization [facility] Address [address] [place] [address] Care Team Providers Care Porcelain Enamel Laborer Name Role Phone Seamus Koehler Primary Care Provider [phone] Reason for Visit * Reason Onset Date Comments speech therapy referral 05/25/2021 Encounter Details Date Type Department Care Team (Late st Contact Info) Description 05/25/2021 Telephone [facility] [address] [place] [id number] Telephone Intake, Staff speech therapy referral Social History Tobacco Use Types Packs/Day [...] encounter Miscellaneous Notes * Telephone Encounter - Katelyn Rodriguez - 05/25/2021 12:27 PM EDT Caller: Lori Reason for call - speech therapy referral Tel: Provider: Caitie bennett reckt call from Speech Therapy, she mentioned the patient is requesting to be seen elsewhere ([facility]) Their fax # [phone] faxed and confirmation recvd Please route your response back to the [facility] Neurology Admin Staff Pool. Thank you * Telephone Encounter - Katelyn Mon Jennifer - 05/25/2021 12:24 PM EDT Caller: Lori Reason for call - speech therapy referral Tel: Provider: Caitie bennett reckt call from Speech Therapy, she mentioned the patient is requesting to be seen elsewhere ([facility]) Their fax # [phone] faxed and confirmation recvd documented in this encounter Plan of Treatment Not on file documented as of this encounter Visit Diagnoses Not on filedocumented in this encounter Care Teams Porcelain Enamel Laborer Relationship Specialty Start Date End Date Seamus Koehler [address] [place] [address] PCP - General Internal Medicine 12/24/16 documented as of this encounter
--- OUTSIDE RECORDS SUMMARY | 2024-04-18 18:16 | XMS_ITS | Encounter Summary ---
Author Organization [facility] Address [address] [place] [address] Care Team Providers Care Clamp Operator Name Role Phone Meka Horan NP Primary Care Provider David rees Encounter Details Date Type Department Care Team (Late st Contact Info) Description 12/01/2023 4:15 PM EDT Hospital Encounter TH HISTORIC ENCOUNTERS EASTERN CONVERSION ONLY Meka Horan NP Need address update Social History Tobacco Use Types Packs/Day Years [...] Blood Pressure 118/72 12/01/2023 5:16 PM EDT Sit ting Left arm Pulse 77 12/01/2023 5:16 PM EDT Temperature - - Respiratory Rate - - Oxygen Saturation - - Inhaled Oxygen Concentration - - Weight - - Height - - Body Mass Index - - documented in this encounter Progress Notes * Meka Horan NP - 12/01/2023 10:20 AM EDT SUBJECTIVE: Nasir Mcdonald is a 68 y.o. male. Chief Complaint Patient presents with ??? Follow-up Home Bound Reason: Patient is homebound and has a normal inability and taxing effort to leave theirhome due to cognitive impairment and dependence on assistance from caregiver Place of Service: pt resides on memory care unit at [facility] of Present Illness : 67 y/o F patient who was seen today for routine management of chronic conditions including but not limited to cognitive impairment, hallucinations, parkinson's disease, neurogenic orthostatic hypotension, ANITA on CPAP, AF, malnutrition, tortuous aorta, HLD, elevated PSA, enlarged prostate (followed by Urology), recurrent UTIs, and DNR. He was living with his until 02/2023 but was hospitalized three times this year at [facility] in [facility]. After the hospital he moved to [facility] in [facility] for rehab and eventually SNF, but was moved to [place] by the [place] on 06/15/2023 as the family was not happy with his care there. He lost 24 pounds involuntarily si nce 02/2023 including fat and muscle mass despite having a decent appetite. He now resides on memorycare unit and seeking primary care through [facility] given homebound status. He was seen today for evaluation of LT hip wound. He was recently referred to a wound clinic at [facility] for more aggressive wound care and has completed a 10D course of antibiotic. On exam, the wound appears to be slightly smaller in size w/ no signs of abnormal drainage. Wound base primarily w/ slough. Patient denies pain or palpable tenderness at the site. VSS and he appears to be at baseline mental capacity at this time. He remains adherent with all medications as provided by [facility] staff and useswheelchair when OOB for optimal safety. No reports of recent falls or injuries. HISTORY: Past Medical History: Diagnosis Date ??? Overweight 07/07/2023 Past Surgical History: Procedure Laterality Date ??? REPLACEMENT TOTAL KNEE Right ??? TRIGGER FINGER RELEASE Family History Problem Relation Age of Onset ??? Alzheimer's disease Mother ??? Prostate cancer Father ??? Diabetes Sister ??? Dementia Sister ??? Thyroid cancer Brother Social History Socioeconomic History ??? Marital status: Spouse name: Not on file ??? Number of children: Not on file ??? Years of education: Not on file ??? Highest education level: Not on file Occupational History ??? Not on file Tobacco Use ??? Smoking status: Former Years: 2 Types: Cigarettes ??? Smokeless tobacco: Never Substance and Sexual Activity ??? Alcohol use: Not Currently ??? Drug use: Never ??? Sexual activity: Not on file Other Topics Concern ??? Not on file Social History Narrative ??? Not on file Social Determinants of Health Financial Resource Strain: Not on file Food Insecurity: Not on file Transportation Needs: Not on file Social Connections: Not on file Housing Stability: Not on file Allergies: No Known Allergies Current Meds: Current Outpatient Medications: ??? acetaminophen (TYLENOL) 325 MG tablet, Take 2 tablets (650 mg total) by mouth every 6 (six) hours as needed., Disp: , Rfl: ??? aspirin 81 MG EC tablet, Take 1 tablet (81 mg total) by mouth daily., Disp: , Rfl: ??? bisacodyl (Stimulant Laxative) 5 MG EC tablet, Take 2 tablets (10 mg total) by mouth every night at bedtime., Disp: 120 tablet, Rfl: 0 ??? carbidopa-levodopa (SINEMET) 25-100 MG per tablet, Take 1.5 tablets by mouth 5 (five) times a day., Disp: , Rfl: ??? Carbidopa-Levodopa ER (SINEMET CR) 25-100 MG per tablet, every night at bedtime., Disp: , Rfl: ??? escitalopram (LEXAPRO) tablet 10 mg, Take 2 tablets (20 mg total) by mouth daily., Disp: 30 tablet, Rfl: 2 ??? fludrocortisone (FLORINEF) tablet 0.1 mg, 2 (two) times a day., Disp: , Rfl: ??? gabapentin (NEURONTIN) 100 MG capsule, Take 3 capsules (300 mg total) by mouth every night at bedtime., Disp: , Rfl: ??? hydrocortisone 1 % cream, Apply topically 2 (two) times a day. x14d, Disp: , Rfl: ??? Lactobacillus TABS, Take 2 tablets by mouth daily., Disp: 40 tablet, Rfl: 0 ??? melatonin 3 MG TABS tablet, Take 1 tablet (3 mg total) by mouth every night at bedtime., Disp: 60 tablet, Rfl: 0 ??? midodrine (PROAMATINE) 2.5 MG tablet, Take 4 tablets (10 mg total) by mouth 3 (three) times a day., Disp: , Rfl: ??? Mirabegron ER (MYRBETRIQ) 25 MG TB24 24 hr tablet, Take by mouth daily., Disp: , Rfl: ??? polyethylene glycol (MIRALAX) 17 g packet, Take 17 g by mouth 3 (three) times a week., Disp: 14each, Rfl: 0 ??? QUEtiapine (SEROquel) 25 MG tablet, Take 1 tablet (25 mg total) by mouth 2 (two) times a day., Disp: 60 tablet, Rfl: 3 ??? rivastigmine (EXELON) 9.5 MG/24HR patch, Place 1 patch onto the skin daily., Disp: , Rfl: ??? thiamine mononitrate (VITAMIN B-1) 100 MG tablet, Take 1 tablet (100 mg total) by mouth daily.,Disp: , Rfl: ??? traZODone (DESYREL) 50 MG tablet, Take 0.5 tablets (25 mg total) by mouth every 6 (six) hours as needed., Disp: , Rfl: ??? triamcinolone (KENALOG) 0.1 % cream, Apply topically 2 (two) times a day as needed., Disp: 30 g, Rfl: 0 VITAL SIGNS Vitals: 12/01/23 1716 BP: 118/72 Pulse: 77 Resp: 20 Temp: 98 ??F (36.7 ??C) TempSrc: Temporal SpO2: 96% There is no height or weight on file to calculate BMI. There is no height or weight on file to calculate BSA. Active Problems: Patient Active Problem List Diagnosis SNOMED CT(R) ??? Cognitive impairment IMPAIRED COGNITION ??? Hallucinations HALLUCINATIONS ??? Impaired gait ABNORMAL GAIT ??? Motor fluctuations related to medication use in Parkinson's disease (HCC) MOVEMENT DISORDER ??? Neurogenic orthostatic hypotension (HCC) SYMPATHOTONIC ORTHOSTATIC HYPOTENSION ??? Osteoarthritis of right knee OSTEOARTHRITIS OF RIGHT KNEE JOINT ??? PD (Parkinson's disease) (HCC) PARKINSON'S DISEASE ??? REM sleep behavior disorder REM SLEEP BEHAVIOR DISORDER ??? Sensorineural hearing loss (SNHL) of both ears SENSORINEURAL HEARING LOSS OF BILATERAL EARS ??? ANITA on CPAP OBSTRUCTIVE SLEEP APNEA SYNDROME ??? Slow transit constipation SLOW TRANSIT CONSTIPATION ??? Trigger middle finger of right hand TRIGGERING OF DIGIT ??? Recurrent UTI RECURRENT URINARY TRACT INFECTION ??? Enlarged prostate LARGE PROSTATE ??? Incontinence of urine URINARY INCONTINENCE ??? Risk for falls AT INCREASED RISK FOR FALLS ??? DNR (do not resuscitate) NOT FOR RESUSCITATION ??? Knee pain PAIN OF KNEE REGION ??? Anxiety ANXIETY ??? Difficulty sleeping DIFFICULTY SLEEPING ??? Atrial fibrillation (HCC) ATRIAL FIBRILLATION ??? Dyslipidemia DYSLIPIDEMIA ??? Elevated PSA RAISED PROSTATE SPECIFIC ANTIGEN ??? Shortness of breath DYSPNEA ??? Tortuous aorta (HCC) DISORDER OF AORTA ??? Protein calorie malnutrition (HCC) DEFICIENCY OF MACRONUTRIENTS ??? Rash and other nonspecific skin eruption ERUPTION ??? Open wound of left hip OPEN WOUND OF LEFT HIP REGION ??? Osteoarthritis OSTEOARTHRITIS ??? Multiple wounds WOUND REVIEW OF SYSTEMS: Review of Systems Reason unable to perform ROS: cognitive impairment at baseline. Gastrointestinal: Negative for nausea and vomiting. Musculoskeletal: Positive for gait problem. Skin: Positive for wound. Neurological: Positive for weakness. Negative for dizziness and light-headedness. PHYSICAL EXAM: Physical Exam Constitutional: Appearance: Normal appearance. HENT: Head: Normocephalic and atraumatic. Nose: Nose normal. Mouth/Throat: Mouth: Mucous membranes are moist. Eyes: Extraocular Movements: Extraocular movements intact. Conjunctiva/sclera: Conjunctivae normal. Pupils: Pupils are equal, round, and reactive to light. Cardiovascular: Rate and Rhythm: Normal rate. Pulses: Normal pulses. Pulmonary: Effort: Pulmonary effort is normal. Breath sounds: Normal breath sounds. Abdominal: General: Bowel sounds are normal. Palpations: Abdomen is soft. Musculoskeletal: General: Normal range of motion. Cervical back: Normal range of motion. Skin: General: Skin is warm and dry. Findings: No rash. Comments: Left hip wound -no drainage, erythema, excessive warmth, edema, or palpable tenderness elicited on exam RT ankle open wounds CDI -no erythema, edema, drainage or palpable tenderness Neurological: Mental Status: He is alert. Mental status is at baseline. Gait: Gait abnormal. Comments: Involuntary movement, contracted BUEs Psychiatric: Mood and Affect: Mood normal. Behavior: Behavior normal. ASSESSMENT/PLAN: SNOMED CT(R) 1. Parkinson's disease with dyskinesia and fluctuating manifestations (HCC) PARKINSON'S DISEASE 2. Cognitive impairment IMPAIRED COGNITION 3. Open wound of left hip, subsequent encounter OPEN WOUND OF LEFT HIP REGION 4. Protein-calorie malnutrition, unspecified severity (HCC) DEFICIENCY OF MACRONUTRIENTS 5. Atrial fibrillation, unspecified type (HCC) ATRIAL FIBRILLATION 6. Impaired gait ABNORMAL GAIT Nasir was seen today for follow-up. Diagnoses and all orders for this visit: Parkinson's disease with dyskinesia and fluctuating manifestations (HCC)/Cognitive impairment -resides at [facility] for 24hr care needs due to cognitive and mobility impairment that is expected to further decline given the progressive nature of the disease process. Cont on sinemet, exelon, gabapentin, seroquel. F/u w/ Neurology and he will f/u as directed Open wound of left hip, subsequent encounter-VSS and non-toxic appearing. Wound size appears slightly smaller and no s/s of abnormal drainage. Cont to receive wound care at [facility] wound care clinic Protein-calorie malnutrition, unspecified severity (HCC) -recent Tprotein slightly improved to 6.3 from 6.0 and albumin 4.2 from 4.1. Cont to encourage optimal nutrition and protein intake for wound healing Atrial fibrillation, unspecified type (HCC)-rate controlled on toprol xl and on ASA daily Impaired gait-risk of skin breakdown d/t impaired mobility; no recent falls or injuries; total caredependent and OOB to WC w/ staff assistance for optimal safety No orders of the defined types were placed in this encounter. No results found for this or any previous visit (from the past 336 hour(s)). This dictation was performed using voice recognition software. Word substitutions may have occurredand may have gone unnoticed and uncorrected. ?? Some information in this note has been copied forward for informational purpose only Time managing patient includies pre-visit review of labwork and previous notes, actual patient visit including reviewing recent patient history, performing physical exam, thoroughly reviewing labworkresults with the patient, discussing treatment options and selecting a treatment regimen which willbe maintained until the next visit. The time also includes note writing and ordering of labwork andmedications as needed. Meka Horan APRN 12/01/23 documented in this encounter Plan of Treatment Upcoming Encounters Date Type Department Care Team (Late st Contact Info) Description 04/30/2024 1:45 PM EDT Office Visit [facility] [address] [place] [id number] Pepe Pandey DPM [address] [place] [address] documented as of this encounter Visit Diagnoses Not on filedocumented in this encounter Care Teams Clamp Operator Relationship Specialty Start Date End Date Meka Horan NP PCP - General 07/07/23 documented as of this encounter
== END 2024-04-18 15:51 | disposition home or self-care (01) ==
PROVIDERS: PCP Nurse Practitioner Family; Visit Provider Psychiatry & Neurology Neurology
DX: G20.B2 Parkinson's disease with dyskinesia, with fluctuations (principal); F41.9 Anxiety disorder, unspecified; R44.3 Hallucinations, unspecified; I95.1 Orthostatic hypotension
CPT/HCPCS: 99214; G2211

== ENCOUNTER → 2024-04-18 15:04 | Outpatient (BNVA) | payer MEDICARE, OTHER, SELFPAY | PROVIDERS: PCP Nurse Practitioner Family; Visit Provider Psychiatry & Neurology Neurology | DX: G20.B2 Parkinson's disease with dyskinesia, with fluctuations (principal); F41.9 Anxiety disorder, unspecified; R44.3 Hallucinations, unspecified; I95.1 Orthostatic hypotension | CPT/HCPCS: 99212 ==

== ENCOUNTER 2024-07-30 13:18 | Outpatient (AMB) | payer MEDICARE, OTHER, SELFPAY ==
--- NOTE | 2024-07-30 13:22 | MHC.OFFVIS ---
Vital Signs 07/30/24 13:24 Height 5 ft 11 in BP 112/70 Blood Pressure Location Rt brachial Position Sitting Intake Visit Reasons: 4-6mon follow up Intake Note: Patient presents for follow up parkinson's. new med trial lorazepam Allergies No Known Allergies Allergy (Verified 07/30/24 13:25) HPI Comments Details: 68-yr-old male presents for f/U .He is not on Hospice anymore.He is accompanied by his sister in law today and his is on the phone No new compliants .He still has OFF periods during the later part of the day. He is currently at [facility]. He needs help with transfer toileting showers dressing. His is still involved in his care He can eat. He had few falls - from the bed and wheel chair. He is more closely monitored now. He has unpredictable OFF periods and he has frequent freezing episodes Hi still has delusions , misperception reports stiffness and wants to know if botox will work PFSH Medical History Amputation of little finger Parkinson's disease with dyskinesia Acquired absence of kidney Syncope and collapse Unsteadiness on feet Difficulty in walking Dysphagia Disorder of autonomic nervous system HTN (hypertension) Sleep apnea Thyroid disease Malignant neoplasm of kidney Depression Dizziness Dementia CAD (coronary artery disease) [place]AT (hard of hearing) Osteoarthritis Afib Parkinson's disease with fluctuating manifestations Anxiety Obstructive sleep apnea Surgical History H/O surgical amputation of finger H/O colonoscopy History of total right knee replacement H/O: knee surgery Family History Father No problems noted. 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) Alcohol intake: never Comment: gait can be unsteady w/Parkinsons flare-ups Patient Tobacco Use Status: Former Tobacco user Tobacco use type: Cigarette Advance Directives Date on File: 05/31/23 Physical Exam Vital Signs: Last Vital Signs BP 112/70 07/30/24 13:24 Const General: anxious Nutritional Appearance: average body habitus Orientation/consciousness: oriented to person and oriented to place Neuro Other: Moderate bradykinesia No tremors mild hypophonia Mild decreased blink and facial expression left UE - cog wheel rigidity FFM and foot taps decreased marlo L>R Neck- antecollis , restricted range of motion Left hand bandaged . General: oriented to person, oriented to place and moves all extremities Cranial nerves: Yes Nystagmus not present Motor exam (neuro): 5/5 motor strength present throughout Assessment & Plan Assessment & Plan (1) Parkinson's disease with dyskinesia: Code(s): G20.B1 - Parkinson's disease with dyskinesia, without mention of fluctuations Category: Medical Qualifiers: Fluctuating manifestations: with fluctuating manifestations Qualified Code(s): G20.B2 - Parkinson's disease with dyskinesia, with fluctuations (2) Anxiety: Code(s): F41.9 - Anxiety disorder, unspecified Category: Medical (3) Hallucinations: Code(s): R44.3 - Hallucinations, unspecified Category: Medical (4) Orthostatic hypotension: Code(s): I95.1 - Orthostatic hypotension Category: Medical Plan CD-LD 25-100mg, 1 tabs at 8am, 10am, 12pm, 2:30pm, 5pm.7pm Carbidopa/levodopa ER 25/100 , 1 tab 8am 10am 12 noon 2.30 pm 5 pm Fludrocortisone 0.1mg bid Increase rasagiline 1mg qd Increase Lorazepam 0.5mg bid as needed for shortness of breath anxiety and also for restlessness during OFF periods STart lorazepam 0.5mg qhs Monitor blood pressure Please monitor for any skin infections contractures etc will check if he would be a candidate for onapgo or vyalev Medications: Changed From escitalopram oxalate 10 mg (1/2 x 20 mg) PO DAILY 30 tabs 6RF To escitalopram oxalate 20 mg PO DAILY 30 tabs 6RF From rasagiline 0.5 mg PO DAILY 30 tabs 3RF To rasagiline 1 mg PO DAILY 30 tabs 6RF Discontinued rotigotine (Neupro) Discontinued Reason: Patient no longer taking 1 mg transdermal DAILY 30 ea 0RF Coding Level of Care Code Est Pt Level 4 (06353) Complex EM visit Add On G2211 Diagnoses Parkinson's disease with dyskinesia and fluctuating manifestations G20.B2 Fluctuating manifestations: with fluctuating manifestations Anxiety F41.9 Hallucinations R44.3 Orthostatic hypotension I95.1
[2024-07-30 13:24] VITALS: BP 112/70
--- OUTSIDE RECORDS SUMMARY | 2024-07-30 14:47 | XMS_ITS | Clinical Summary ---
Author Organization [address] [facility] Address [address] [place] [address] Phone Care Team Providers Care Club Concierge Name Role Phone Meka Horan SALES INTERN Primary Care Provider David rees Medications aspirin 81 mg EC tablet Take [...] Date Diagnosed Date Pressure injury of right ank le, stage 2 (CMS/HCC V24, CMS/HCC V28) 12/22/2023 Pressure injury of left hip, stage 2 (CMS/HCC V24, CMS/HCC V28) 12/22/2023 Encounters Date Type Department Care Team Description 05/28/2024 2:00 PM EDT Office Visit [facility] [address] [facility] [address] [place] [address] Valerie Arnold, SALES INTERN Pressure injury of right ankle, stage 2 (CMS/HCC V24, CMS/HCC V28) (Primary Dx) 05/14/2024 1:45 PM EDT Office Visit [facility] [address] [facility] [place] [id number] Pepe Pandey, DPM Pressure injury of right ankle, stage 2 (CMS/HCC V24, CMS/HCC V28) (Primary Dx) from Last 3 Months Surgical History Surgery [...] 9:16 AM EDT Sexual Orientation Straight 08/16/2023 9 :16 AM EDT Obstetrics History Last Filed Vital Signs Vital Sign Reading Time Taken Comments Blood Pressure 99/67 05/28/2024 2:00 PM EDT Pulse 66 05/28/2024 2:00 PM EDT Temperature 36.7 ??C (98 ??F) 05/28/2024 2:00 PM EDT Respiratory Rate 16 05/28/2024 2:00 PM EDT Oxygen Saturation 99% 05/28/2024 2:00 PM EDT Inhaled Oxygen Concentration - - [...] 02/11/2021, 07/02/2020, Additional history exists Influenza Vaccine (Season Ended) 2024 12/11/2021, 02/17/2016, 01/24/2015 Falls Risk Assessment 04/16/2025 04/16/2024 Cholesterol Screening (Lipid Panel) 08/09/2028 08/10/2023 DTaP,Tdap,and Td Vaccines (4 - Td or Tdap) 04/30/2030 04/30/2020, 04/16/2009, 07/15/1999 RSV Immunization Adult Patients (1 - 1-dose 75+ series) 11/24/2031 HIB [...] age to complete this topic Meningococcal B Vaccine Aged Out No l onger eligible based on patient's age to complete this topic RSV Immunization Patients Under 20 months Aged Out No longer eligible based on patient's age to complete this topic Varicella Vaccines Aged Out No longer eligible based on patient's age to complete this topic Insurance [facility]ARE [facility] [address] [place] [address] Care Teams Club Concierge Relationship Specialty Start Date End Date Meka Horan NP PCP - General 07/07/23
== END 2024-07-30 13:54 | disposition home or self-care (01) ==
LOC: HO.HSMS 13:19
PROVIDERS: PCP Nurse Practitioner Family; Visit Provider Psychiatry & Neurology Neurology
DX: G20.B2 Parkinson's disease with dyskinesia, with fluctuations (principal); F41.9 Anxiety disorder, unspecified; R44.3 Hallucinations, unspecified; I95.1 Orthostatic hypotension
CPT/HCPCS: 99214; G2211

== ENCOUNTER → 2024-07-30 13:18 | Outpatient (BNVA) | payer MEDICARE, OTHER, SELFPAY | PROVIDERS: PCP Nurse Practitioner Family; Visit Provider Psychiatry & Neurology Neurology | DX: G20.B2 Parkinson's disease with dyskinesia, with fluctuations (principal); F41.9 Anxiety disorder, unspecified; R44.3 Hallucinations, unspecified; I95.1 Orthostatic hypotension | CPT/HCPCS: 99212 ==